=== PATIENT | male | born 1950 | race Caucasian/White ===

== ENCOUNTER 2020-03-12 07:58 | Outpatient (REF) | payer MEDICARE, SELFPAY ==
--- NOTE | 2020-03-12 08:38 | XR_ITS ---
EXAMINATION: XR CHEST CLINICAL INFORMATION: Pleurodynia COMPARISON: Chest radiographs on 12/16/2014 and 01/29/2018 TECHNIQUE: 2 views of the chest were obtained. FINDINGS: The cardiomediastinal and hilar contours are within normal limits. The lungs are clear without focal consolidation, pleural effusion or pneumothorax. XR/XR chest 2V IMPRESSION: No acute process identified.
== END 2020-03-12 07:59 | disposition home or self-care (01) ==
LOC: HO.HMGCX 07:58
PROVIDERS: PCP Nurse Practitioner Family; Visit Provider Nurse Practitioner Family
DX: R07.81 Pleurodynia (principal)
CPT/HCPCS: 71046

== ENCOUNTER 2020-05-11 14:34 | Outpatient (REF) | payer MEDICARE, SELFPAY | END 2020-05-11 14:35 | disposition home or self-care (01) | LOC: HO.HMGCLDS 14:34 | PROVIDERS: PCP Nurse Practitioner Family; Visit Provider Internal Medicine | DX: Z20.822 Contact with and (suspected) exposure to COVID-19 (principal) | CPT/HCPCS: 36415; C9803; U0003 ==

== ENCOUNTER 2023-08-08 15:00 | Outpatient (AMB) | payer MEDICARE, SELFPAY ==
--- NOTE | 2023-08-08 15:08 | MHC.PC.OV ---
Vital Signs 08/08/23 15:11 Height 5 ft 7 in Weight 178 lb BMI 27.9 BP 122/80 Blood Pressure Location Lt brachial Position Sitting Pulse 78 Pulse Source Pulse Oximeter Pulse Oximetry (%) 98 Oxygen Delivery Method Room Air Intake Visit Reasons: re-estblish care(not seen in 3 years) Intake Note: Patient here to re establish care. Allergies No Known Allergies Allergy (Verified 08/08/23 15:11) Medication List - Last Reconciled 08/08/23 by ESDRAS Damico atorvastatin 40 mg PO DAILY clonazepam 0 mg PO fluoxetine mg PO fluoxetine 20 mg PO QAM mirtazapine 45 mg PO BEDTIME pantoprazole 40 mg PO DAILY trazodone mg PO Tobacco use date assessed: 08/08/23 Fall risk assessment: No Falls in past year Last assessed Fall Risk: 08/08/23 Dental Screening Dental Screen Date: 08/08/23 Did you have a dental visit in the last 12 months?: Yes Did you have a dental problem in the last 6 months where you did not have access to dental care?: No Was dental information given to patient?: Patient has dentist HPI re-estblish care(not seen in 3 years) HPI Details Dyslipidemia: Pt is currently taking atorvastatin 40mg. Will order labs. Denies fever, chills, and dizziness. Pt is due for a colon screen, will refer to GI. Pt does have a psychiatrist. He does not have a therapist and would like one, will speak with our team, denies any SI ro HI. Pt reports skin lesions to his upper mid back/posterior neck. Will refer to derm. Due for PSA, will order. Denies dribbling with urination, weak stream, and frequent nocturia. Pt reports intermittent chest discomfort. He reports that this lasts only seconds and does not radiate. Will do an EKG in office. [facility] Medical History (Updated 08/08/23 @ 16:08 by ESDRAS Damico) Gastrointestinal discomfort Seborrheic keratoses Lumbago of lumbar region with sciatica Depression Mixed hyperlipidemia Surgical History History of inguinal hernia repair History of tonsillectomy Family History Mother Brain cancer Father No problems noted. Social History (Updated 08/08/23 @ 16:44 [facility] Alcohol intake: current Alcohol intake frequency: a few times a week Patient Tobacco Use Status: Former Tobacco user Current occupational status: employed and retired Cognitive needs: No Hearing needs: No Vision needs: Yes Questionnaire PHQ-9 Over the last 2 weeks, how often have you been bothered by any of the following problems? 35906 - PHQ-9 Billing: Patient declined-do not bill Source: Developed by Drs. Saúl Starr, Maddie Jackson, Patel Muniz and colleagues, with an educational silas from [employer]. AUDIT C Alcohol Use Questionnaire (AUDIT-C) Score Reviewed/Action Taken: No JANET-7 AMB Questionnaire JANET-7 Assessment Billing JANET-7 Assessment Tool: pt declined-do not bill Review of Systems Const Reports as per HPI Physical exam (Primary Care) Vital Signs: Last Vital Signs Pulse 78 08/08/23 15:11 BP 122/80 08/08/23 15:11 Pulse Ox 98 08/08/23 15:11 Oxygen Delivery Method Room Air 08/08/23 15:11 BMI result Body Mass Index 27.9 Tobacco/Smoking Status: Tobacco use Status Tobacco use date assessed 08/08/23 08/08/23 15:19 Patient Tobacco Use Status Former Tobacco user 08/08/23 15:19 Const General: cooperative Orientation/consciousness: patient oriented x3 Resp Effort & Inspection: normal respiratory effort Auscultation: clear to auscultation bilaterally Cardio Rate: regular rate Rhythm: regular rhythm Heart sounds: S1 normal heart sound present and S2 normal heart sound present Skin Other: upper mid back/posterior neck with slightly raised, slightly discolored lesions (SK?) Neuro General: patient oriented x3 Psych Appearance: grossly normal Mental Status: mental status grossly normal Speech and movement: Normal speech and movement present Affect: normal affect Attitude: cooperative Thought process: Normal thought process present Thought content: Normal thought content present Insight: Good insight present (Psych) Judgement: Good judgement present (Psych) Assessment and Plan Assessment & Plan (1) Screening for colon cancer: Code(s): Z12.11 - Encounter for screening for malignant neoplasm of colon Plan: Referred to GI (2) Mixed hyperlipidemia: Code(s): E78.2 - Mixed hyperlipidemia Plan: Labs ordered, restarting atorvastatin (3) Screening for prostate cancer: Code(s): Z12.5 - Encounter for screening for malignant neoplasm of prostate Plan: PSA ordered (4) Skin lesion: Code(s): L98.9 - Disorder of the skin and subcutaneous tissue, unspecified Plan: referring to derm (5) Chest discomfort: Code(s): R07.89 - Other chest pain Plan The patient agreed to the use of a medical records field technician for this encounter. Scribed for CORRY Scott-BC by Daysi Anderson medical records field technician, on 08/08/2023 at 15:45 EST. Orders: Orders Complete Blood Count Auto Diff Today E78.2 - Mixed hyperlipidemia TSH reflex Free T4 Today E78.2 - Mixed hyperlipidemia Prostate Specific Antigen Scr Today Z12.5 - Encounter for screening for malignant neoplasm of prostate AMB EKG-In Office Today R07.89 - Other chest pain Comprehensive [place]. Panel Fast Today E78.2 - Mixed hyperlipidemia UA CC w/rflx Micro + Cult Today E78.2 - Mixed hyperlipidemia Lipid Panel Today E78.2 - Mixed hyperlipidemia Referrals Gastroenterology Referral Z12.11 - Encounter for screening for malignant neoplasm of colon Dermatology Referral L98.9 - Disorder of the skin and subcutaneous tissue, unspecified Medications: Refilled atorvastatin 40 mg PO DAILY 90 tabs 0RF Coding Level of Care Code New Pt Level 3 (82719) Diagnoses Screening for colon cancer Z12.11 Mixed hyperlipidemia E78.2 Screening for prostate cancer Z12.5 Skin lesion L98.9 Chest discomfort R07.89
[2023-08-08 15:11] VITALS: BP 122/80; PULSE 78; O2SAT 98; BMI 27.9
== END 2023-08-08 16:41 | disposition home or self-care (01) ==
PROVIDERS: PCP Nurse Practitioner Family; Visit Provider Nurse Practitioner Family
DX: Z12.11 Encounter for screening for malignant neoplasm of colon (principal); E78.2 Mixed hyperlipidemia; Z12.5 Encounter for screening for malignant neoplasm of prostate; L98.9 Disorder of the skin and subcutaneous tissue, unspecified; R07.89 Other chest pain
CPT/HCPCS: 99203

== ENCOUNTER 2023-10-05 12:01 | Outpatient (REF) | payer MEDICARE, SELFPAY ==
[2023-10-05 13:04] LABS: MANUAL DIFF FLAG NO
[2023-10-05 13:21] LABS: Basophils Absolute Auto 0.1 X10*3/uL (0.0-0.2); Basophils Percent Auto 1.3 % (0-2); Eosinophils Absolute Auto 0.1 X10*3/uL (0.0-0.4); Eosinophils Percent Auto 1.3 % (0-4); Hematocrit 43.5 % (42.0-52.0); Imm Gran Abs Auto 0.02 X10*3/uL (0.00-0.03); Imm Gran Pct Auto 0.3 % (0.0-0.4); Lymphocytes Absolute Auto 2.4 X10*3/uL (1.2-4.9); Lymphocytes Percent Auto 35.7 % (20-40); Mean Corpuscular HGB Conc 32.2 g/dl (31.0-36.0); Mean Corpuscular Hemoglobin 29.5 pg (27.0-33.0); Mean Corpuscular Volume 91.6 fL (80.0-98.0); Mean Platelet Volume 11.2 fL (9.4-12.4); Monocytes Absolute Auto 0.4 X10*3/uL (0.1-1.2); Monocytes Percent Auto 6.3 % (2-11); Neutrophils Absolute Auto 3.7 x10*3/uL (2.0-8.3); Neutrophils Percent Auto 55.1 % (45-73); Platelet Count 213 X10*3/uL (160-400); Red Blood Count 4.75 X10*6/uL (4.60-5.80); Red Cell Distribution Width 13.4 % (11.0-16.0); White Blood Count 6.8 X10*3/uL (4.8-10.8)
[2023-10-05 13:44] LABS: Appearance Urine Clear; Color Urine Yellow; Glucose Urine UA Negative (Negative); Leukocyte Esterase Urine Negative (Negative); Nitrite Urine Negative (Negative); PH 6.5 (5.0-9.0); Specific Gravity - Urine 1.015 (1.005-1.025); Urine Blood Negative (Negative); Urine Ketones Negative (Negative); Urine Protein Negative (Neg-Trace)
[2023-10-05 13:47] LABS: Alanine Aminotransferase 40 U/L (0-40); Albumin Level 4.2 g/dL (3.5-5.0); Alkaline Phosphatase 53 U/L (39-117); Anion Gap 9 (12-20); Aspartate Amino Transferase 35 U/L (5-37); Bilirubin Total 0.6 mg/dL (0.0-1.0); Blood Urea Nitrogen 13 mg/dL (9-16); Carbon Dioxide 30 mmol/L (22-29); Chloride 106 mmol/L (96-108); Cholesterol 182 mg/dL (<200); Estimated Glomerular Filt Rate > 60; Glucose Fasting 102 mg/dL (60-99); HDL Cholesterol 49 mg/dL (>40); LDL Cholesterol Calculated 95 mg/dL (<100); Sodium 141 mmol/L (135-145); Total Protein 7.6 g/dL (6.5-8.0); Triglycerides 192 mg/dL (<150)
[2023-10-05 13:59] LABS: Prostate Specific Antigen Scr 8.67 ng/mL (<0.05-4.0)
[2023-10-05 14:05] LABS: TSH reflex Free T4 2.28 uIU/mL (0.32-4.0)
== END 2023-10-05 12:02 | disposition home or self-care (01) ==
LOC: HO.HMGCLDS 12:01
PROVIDERS: PCP Nurse Practitioner Family; Visit Provider Nurse Practitioner Family
DX: E78.2 Mixed hyperlipidemia (principal); R97.20 Elevated prostate specific antigen [PSA]; Z12.5 Encounter for screening for malignant neoplasm of prostate
CPT/HCPCS: 36415; 80053; 80061; 81003; 84153; 84443; 85025

== ENCOUNTER 2023-11-29 11:36 | Outpatient (AMB) | payer MEDICARE, SELFPAY ==
[2023-11-29 11:49] VITALS: BP 126/80; PULSE 61; O2SAT 96; BMI 27.3
--- NOTE | 2023-11-29 11:49 | MHC.PC.OV ---
Vital Signs 11/29/23 11:49 Height 5 ft 7 in Weight 174 lb 6 oz BMI 27.3 BP 126/80 Blood Pressure Location Rt brachial Position Sitting Pulse 61 Pulse Source Pulse Oximeter Pulse Oximetry (%) 96 Oxygen Delivery Method Room Air Intake Visit Reasons: 4M F/U Intake Note: pt is here for 4 month folllow up. positive PHQ9 and JANET 7, please review with patient Emergency Department Manager Required: No Accompanied by: Self / Same As Patient Allergies No Known Allergies Allergy (Verified 11/29/23 11:49) Tobacco use date assessed: 08/08/23 Fall risk assessment: No Falls in past year Last assessed Fall Risk: 11/29/23 Dental Screening Dental Screen Date: 08/08/23 HPI 4M F/U HPI Details Pt reports left upper chest discomfort with inhalation. He is a former cigarette smoker, quit several years ago. He does smoke marijuana on a daily basis. Pt does report intermittent cough. Will order chest XR. Will do an EKG and nebulizer in office. Denies fever, chills, and shortness of breath. [facility]END[facility] S[facility] TO [facility] Medical History Gastrointestinal discomfort Seborrheic keratoses Lumbago of lumbar region with sciatica Depression Mixed hyperlipidemia Surgical History History of inguinal hernia repair History of tonsillectomy Family History Mother Brain cancer Father No problems noted. Social History Alcohol intake: current Alcohol intake frequency: a few times a week Patient Tobacco Use Status: Former Tobacco user Current occupational status: employed and retired Cognitive needs: No Hearing needs: No Vision needs: Yes Questionnaire PHQ-9 Over the last 2 weeks, how often have you been bothered by any of the following problems? 1. Little interest or pleasure in doing things: nearly every day 2. Feeling down, depressed, or hopeless: nearly every day 3. Trouble falling or staying asleep, or sleeping too much: several days 4. Feeling tired or having little energy: several days 5. Poor appetite or overeating: several days 6. Feeling bad about yourself - or that you are a failure or have let yourself or your family down: more than half the days 7. Trouble concentrating on things, such as reading the newspaper or watching television: several days 8. Moving or speaking so slowly that other people could have noticed. Or the opposite - being so fidgety or restless that you have been moving around a lot more than usual: several days 9. Thoughts that you would be better off or of hurting yourself in some way: not at all Total score: 13 Depression Screening Interpretation: Positive Depression Screening Done: Yes 36336 - PHQ-9 Billing: Yes Source: Developed by Drs. Saúl Starr, Maddie Jackson, Patel Muniz and colleagues, with an educational silas from [employer]. Thrive Questionnaire Date Thrive assessed: 11/29/23 I am a: Patient What is your living situation today?: I have a steady place to live Within the past 12 months, did the food you bought not last and you didn't have the money to get more?: Sometimes True Within the past 12 months, did you worry whether your food would run out before you got money to buy more?: Never true Do you have trouble paying for medicines?: No Do you have trouble getting transportation to medical appointments?: No Do you have trouble paying your heating and electricity bill?: No Do you have trouble taking care of your child, family member or friend?: No Do you have trouble with day-to-day activities such as bathing, preparing meals, shopping, managing finances, etc.?: Yes Are you currently unemployed and looking for a job?: Yes Are you interested in more education?: No Please select the resources that you would like help with: Housing/[facility] Currently or been in a relationship where the following occur: No concerns reported and I choose not to answer THRIVE Score: 1 AUDIT C Alcohol Use Questionnaire (AUDIT-C) 1. How often do you have a drink containing alcohol?: 2-4 times a month 2. How many drinks containing alcohol do you have on a typical day when you are drinking?: 3 or 4 3. How often do you have six or more drinks on one occasion?: Never Total Score: 3 Score Reviewed/Action Taken: Yes JANET-7 AMB Questionnaire JANET-7 Date JANET - 7 assessed: 11/29/23 Feeling nervous, anxious, or on edge: 3 = Nearly every day Not being able to stop or control worryin = Nearly every day Worrying too much about different things: 3 = Nearly every day Trouble relaxin = Nearly every day Being so restless that it is hard to sit still: 0 = Not at all Becoming easily annoyed or irritable: 2 = More than half the days Feeling afraid as if something awful might happen: 3 = Nearly every day Total JANET-7 score (0-4 normal; 5-9 mild; 10-14 moderate; 15-21 severe): 17 Source: Developed by Drs. Saúl Starr, Maddie Jackson, Patel Muniz and colleagues, with an educational silas from [employer]. JANET-7 Assessment Billing JANET-7 Assessment Tool: JANET-7 Assessment 23793 (denies any si or HI, will have BH speak with pt) Review of Systems Const Reports as per HPI Physical exam (Primary Care) Vital Signs: Last Vital Signs Pulse 61 11/29/23 11:49 BP 126/80 11/29/23 11:49 Pulse Ox 96 11/29/23 11:49 Oxygen Delivery Method Room Air 11/29/23 11:49 BMI result Body Mass Index 27.3 Tobacco/Smoking Status: Tobacco use Status Tobacco use date assessed 08/08/23 11/29/23 11:51 Patient Tobacco Use Status Former Tobacco user 11/29/23 11:51 PHQ-9: PHQ-9 Score PHQ-9: Total score 13 11/29/23 12:29 Depression Screening Interpretation: Positive Thrive Assessment: Date of Thrive Assessment Date Thrive assessed 11/29/23 11/29/23 11:51 Currently or been in a relationship where the following occur: No concerns reported and I choose not to answer Const General: cooperative Orientation/consciousness: patient oriented x3 Resp Effort & Inspection: normal respiratory effort Auscultation: clear to auscultation bilaterally Cardio Rate: regular rate Rhythm: regular rhythm Heart sounds: S1 normal heart sound present and S2 normal heart sound present Neuro General: patient oriented x3 Psych Appearance: grossly normal Mental Status: mental status grossly normal Speech and movement: Normal speech and movement present Affect: normal affect Attitude: cooperative Thought process: Normal thought process present Thought content: Normal thought content present Insight: Good insight present (Psych) Judgement: Good judgement present (Psych) Office Procedures Nebulizer Treatment Nebulizer Treatment 36090-Tpfvussmn/MDI RX initial, or Nebulizer Subsequent Treatment Office Meds ipratropium 0.5 mg-albuterol 3 mg (2.5 mg base)/3 mL nebulization soln Performing Provider: ESDRAS Damico Performing Location: [facility] Administered by: Ro Coffey RN on 11/29/23 12:16 Dose Route Admin Location Dispensed Lot Number Expiration Date [employer] 3 mL inhalation 3 mL [id number] 02/21/25 39778-152-85 [employer] Assessment and Plan Assessment & Plan (1) Chest discomfort: Code(s): R07.89 - Other chest pain Plan: EKG without changes. educated on cutting back smoking marijuana. Plan The patient agreed to the use of a caregivers non medical for this encounter. Scribed for ESDRAS Scott by Daysi Anderson caregivers non medical, on 11/29/2023 at 11:55 EST. Orders: Orders XR chest 2V Today R07.89 - Other chest pain AMB Nebulizer Treatment Today R05.9 - Cough, unspecified Coding Level of Care Code Est Pt Level 3 (50498) Diagnoses Chest discomfort R07.89 CPT Codes Nebulizer Treatment - Nebulizer Treatment, initial or subsequent: 46194-Xozofdlcp/MDI RX initial, or Nebulizer Subsequent Treatment ([id number]) Additional Codes JANET-7 Assessment Billing - JANET-7 Assessment Tool: JANET-7 Assessment 90216 ([id number])
== END 2023-11-29 12:52 | disposition home or self-care (01) ==
PROVIDERS: PCP Nurse Practitioner Family; Visit Provider Nurse Practitioner Family
DX: R05.9 Cough, unspecified (principal); R07.89 Other chest pain
CPT/HCPCS: 93000; 94640; 99213; J7620

== ENCOUNTER 2023-12-26 14:20 | Outpatient (AMB) | payer MEDICARE, SELFPAY ==
--- NOTE | 2023-12-26 14:24 | MHC.OFFVIS ---
Intake Visit Reasons: Elevated PSA Intake Note: Patient is present for ELEVATED PSA Urology Medication:NONE Antibiotic Allergy:NONE Blood Thinner:NONE Poker Machine Attendant Required: No Allergies No Known Allergies Allergy (Verified 12/26/23 14:25) Medication List - Last Reconciled 12/26/23 by Kadeem Barber MD atorvastatin 40 mg PO DAILY clonazepam 0 mg PO fluoxetine mg PO fluoxetine 20 mg PO QAM mirtazapine 45 mg PO BEDTIME pantoprazole 40 mg PO DAILY trazodone mg PO HPI Comments Details: Luciano is a pleasant male. He is a patient of Dr. Larios. He is seen for the following urologic conditions - elevated PSA Elevated PSA He presents for - initial evaluation of elevated PSA, further evaluation of elevated PSA Lower Urinary Tract Symptoms include - stable. Effective voiding. Investigations include - PSA - 10/15 8.7 - SERGEY 2+ Individualized Prostate Cancer Risk Calculator - PCPT Calculator Associated conditions include - Therapeutic plan will be [- repeat PSA and if persistent elevation recommend prostate needle biopsy] [facility] Medical History Gastrointestinal discomfort Seborrheic keratoses Lumbago of lumbar region with sciatica Depression Mixed hyperlipidemia Surgical History History of inguinal hernia repair History of tonsillectomy Family History Mother Brain cancer Father No problems noted. Social History Alcohol intake: current Alcohol intake frequency: a few times a week Patient Tobacco Use Status: Former Tobacco user Current occupational status: employed and retired Cognitive needs: No Hearing needs: No Vision needs: Yes Review of Systems Const Denies chills and Denies fever(s) Card Reports no additional complaints and Denies syncope Resp Denies cough GI Denies abdominal pain and Denies heartburn Reports as per HPI and Denies change in libido Neuro Denies syncope Psych Denies change in libido Endo Denies change in libido Physical Exam Const General: cooperative, healthy appearing, comfortable and no acute distress Orientation/consciousness: patient oriented x3 HEENT Face and sinus: Yes normal facial exam Mouth: moist mucous membranes Neck Neck: Yes normal visual inspection, Yes full ROM and Yes trachea midline Chest Chest palpation & inspection: normal inspection of the chest Resp Effort & Inspection: normal respiratory effort, able to speak in complete sentences and no respiratory distress GI Inspection: Yes normal to inspection Rectal Exam - Male: Yes normal sphincter tone and Yes prostate normal Male General Exam: Yes normal external exam Penis: normal penis and circumcised Meatus: meatus normal Scrotum: scrotum normal Testes: Testes normal Back/Spine/Pelvis Cervical Spine: normal cervical lordosis Thoracic/Lumbar Spine: thoracic and lumbar spine normal to inspection Skin General skin exam: no rashes or lesions noted Neuro General: patient oriented x3, gait normal, tone normal and moves all extremities Extrem General: Yes normal to inspection and Yes capillary refill normal Assessment & Plan Assessment & Plan (1) Elevated prostate specific antigen (PSA): Code(s): R97.20 - Elevated prostate specific antigen [PSA] Category: Medical Plan Two month follow-up repeat PSA in bladder ultrasound Orders: Orders US bladder 2 Months R97.20 - Elevated prostate specific antigen [PSA] PSA,Total (Free>4and<10) 2 Months E11.69 - Type 2 diabetes mellitus with other specified complication, N52.1 - Erectile dysfunction due to diseases classified elsewhere, R97.20 - Elevated prostate specific antigen [PSA] Patient Instructions: Imaging studies, laboratory and physical exam results were discussed and reviewed in detail. No major barriers to patient understanding were identified. An opportunity to ask questions regarding the treatment plan was provided. All questions were answered. The patient expressed understanding and agreement with the above treatment plan. The patient is aware they should contact our office by phone for worsening of their current condition or the appearance of new urologic symptoms. Compliance is encouraged with any medications and followup testing that is ordered. It is a privilege to participate in the urologic care of your patient. If you have any questions or concerns regarding treatment for the above conditions, or other urologic issues, please do not hesitate to contact me. The office telephone contact is [phone]. This note is constructed using voice recognition software. While every effort has been made to ensure accuracy legal office administrator errors may have been included. Yours sincerely, Dr Kadeem Barber MD, [facility] - Urology Providers of Expert, Compassionate Care for the Genitourinary System Coding Level of Care Code New Pt Level 4 (43466) Diagnoses Elevated prostate specific antigen (PSA) R97.20
== END 2023-12-26 15:20 | disposition home or self-care (01) ==
PROVIDERS: PCP Nurse Practitioner Family; Visit Provider Urology
DX: R97.20 Elevated prostate specific antigen [PSA] (principal)
CPT/HCPCS: 99204

== ENCOUNTER → 2023-12-26 14:20 | Outpatient (BNVA) | payer MEDICARE, SELFPAY | PROVIDERS: PCP Nurse Practitioner Family; Visit Provider Urology | DX: R97.20 Elevated prostate specific antigen [PSA] (principal) | CPT/HCPCS: 99202 ==

== ENCOUNTER 2024-02-20 12:28 | Outpatient (REF) | payer MEDICARE, SELFPAY ==
[2024-02-20 14:32] LABS: PSA,Total (Free>4and<10) 14.72 ng/mL (0.00-4.00)
== END 2024-02-20 12:29 | disposition home or self-care (01) ==
LOC: HO.HMGCX 12:28
PROVIDERS: PCP Nurse Practitioner Family; Visit Provider Urology
DX: R97.20 Elevated prostate specific antigen [PSA] (principal); E11.69 Type 2 diabetes mellitus with other specified complication; N52.1 Erectile dysfunction due to diseases classified elsewhere; Z12.5 Encounter for screening for malignant neoplasm of prostate
CPT/HCPCS: 36415; 76857; 84153

== ENCOUNTER 2024-03-01 16:13 | Outpatient (AMB) | payer MEDICARE, SELFPAY ==
--- NOTE | 2024-03-01 16:14 | MHC.OFFVIS ---
Intake Visit Reasons: 2m/US/PSA(Elevated)set Intake Note: Patient is present for PSA/Ultrasound follow up Urology Med:nONE PSA- 02/20/2024 14.72 Bladder US- 02/20/24 Allergies No Known Allergies Allergy (Verified 03/18/24 10:38) HPI Comments Details: Luciano is a pleasant male. He is a patient of Dr. Larios. He is seen for the following urologic conditions - elevated PSA Telemedicine Evaluation 15 min Consultation D[employer] Sole Video PSA continues to rise 02/14 14.7 Start finasteride Schedule prostate biopsy Elevated PSA He presents for - initial evaluation of elevated PSA, further evaluation of elevated PSA Lower Urinary Tract Symptoms include - stable. Effective voiding. Investigations include - PSA - 10/15 8.7 - SERGEY 2+ Individualized Prostate Cancer Risk Calculator - PCPT Calculator Associated conditions include - Therapeutic plan will be [facility] Medical History Gastrointestinal discomfort Seborrheic keratoses Lumbago of lumbar region with sciatica Depression Mixed hyperlipidemia Surgical History History of inguinal hernia repair History of tonsillectomy Family History Mother Brain cancer Father No problems noted. Social History Are you a primary hourly caregiver to a significant other at home: No Do you presently have visiting nurse or other home services: No Alcohol intake: current Alcohol intake frequency: a few times a week Patient Tobacco Use Status: Former Tobacco user Substance Use Frequency: Daily Have you been hit, kicked, punched, or otherwise hurt by someone within the past year? If so, by whom?: No Are you DNR?: No Advance Directives: No Advance Directives Information Provided: Yes Recently lost weight without trying: No Nutrition Risks: No Nutritional Risk Current occupational status: employed and retired Cognitive needs: No Hearing needs: No Vision needs: Yes Review of Systems Const All systems reviewed & are unremarkable except as noted in HPI and below Reports no additional complaints Resp Reports no additional complaints GI Reports no additional complaints Reports as per HPI Musc Reports no additional complaints Physical Exam Telemedicine evaluation Appropriate responses Regular breathing rate and rhythm HEENT Head: Yes normal to inspection Ears: hearing grossly normal bilaterally Eyes General: appearance normal, both eyes and all related structures Neck Neck: Yes normal visual inspection Chest Chest palpation & inspection: normal inspection of the chest Resp Effort & Inspection: normal respiratory effort and able to speak in complete sentences Telehealth Telehealth Telehealth Platform: [employer] Location of provider rendering services: practice address Location of patient: address on file Patient Identification confirmed using: Name, : Yes Telehealth method: video Patient verbally consented to treatment: Yes Patient verbally consented to billing insurance company: Yes Patient informed of any privacy concerns related to visit: Yes Minutes spent on Phone/Video with Pt.: 15 Assessment & Plan Assessment & Plan (1) BPH loc w urin obs/LUTS: Code(s): N40.1 - Benign prostatic hyperplasia with lower urinary tract symptoms Category: Medical (2) Elevated prostate specific antigen (PSA): Code(s): R97.20 - Elevated prostate specific antigen [PSA] Category: Medical Plan Risks and benefits regarding trans rectal ultrasound with prostate biopsy were discussed. Options of continued surveillance, no treatment and biopsy were offered. The risks include but are not limited to, urinary tract infection, sepsis, difficulty urinating, bleeding into the rectum or bladder that requires intervention and transfusion,and failure to diagnose prostate cancer. The patient understands the options and the risks involved. They wish to proceed. Printed information was provided to ensure he remains off anticoagulation for the appropriate length of time. He may require cardiology or PCP clearance. An antibiotic will be administered prior to, and following the procedure Medications: New levofloxacin take 1 tablet day before procedure, 1 tablet day of procedure and 1 tablet day after procedure 500 mg PO DAILY 3 tabs 0RF 3 days R97.20 - Elevated prostate specific antigen [PSA] finasteride 5 mg PO DAILY 90 tabs 0RF 90 days R97.20 - Elevated prostate specific antigen [PSA], N32.0 - Bladder-neck obstruction Patient Instructions: Imaging studies, laboratory and physical exam results were discussed and reviewed in detail. No major barriers to patient understanding were identified. An opportunity to ask questions regarding the treatment plan was provided. All questions were answered. The patient expressed understanding and agreement with the above treatment plan. The patient is aware they should contact our office by phone for worsening of their current condition or the appearance of new urologic symptoms. Compliance is encouraged with any medications and followup testing that is ordered. It is a privilege to participate in the urologic care of your patient. If you have any questions or concerns regarding treatment for the above conditions, or other urologic issues, please do not hesitate to contact me. The office telephone contact is [phone]. This note is constructed using voice recognition software. While every effort has been made to ensure accuracy battery technician errors may have been included. Yours sincerely, Dr Kadeem Barber MD, [facility] - Urology Providers of Expert, Compassionate Care for the Genitourinary System Coding Level of Care Code Tele Est Pt Level 4 (27275) Diagnoses BPH loc w urin obs/LUTS N40.1 Elevated prostate specific antigen (PSA) R97.20
== END 2024-03-01 16:30 | disposition home or self-care (01) ==
LOC: HO.HUSH 16:13
PROVIDERS: PCP Nurse Practitioner Family; Visit Provider Urology
DX: N40.1 Benign prostatic hyperplasia with lower urinary tract symptoms (principal); R97.20 Elevated prostate specific antigen [PSA]
CPT/HCPCS: 99214

== ENCOUNTER → 2024-03-01 16:13 | Outpatient (BNVA) | payer MEDICARE, SELFPAY | PROVIDERS: PCP Nurse Practitioner Family; Visit Provider Urology ==

== ENCOUNTER 2024-03-18 10:10 | Day surgery (SDC) | payer MEDICARE, SELFPAY ==
--- NOTE | 2024-03-15 10:36 | HO.ANESPROP2 ---
Documented by User: Divya Pagan NP 03/15/24 10:37 HPI - Anesthesia Eval Consult details Narrative: 73yo M for Prostate Needle Biopsy PMFSH Active Problems Active Problems: All Active Problems BPH loc w urin obs/LUTS (Acute) Elevated prostate specific antigen (PSA) (Acute) Chest discomfort (Acute) Skin lesion (Acute) Screening for prostate cancer (Acute) Mixed hyperlipidemia (Acute) Screening for colon cancer (Acute) Rib pain (Acute) Past Medical History Medical History Gastrointestinal discomfort Seborrheic keratoses Lumbago of lumbar region with sciatica Depression Mixed hyperlipidemia Family History Family History Mother Brain cancer Father No problems noted. Surgical History Surgical History History of inguinal hernia repair History of tonsillectomy Social History Social History Are you a primary medical care manager to a significant other at home: No Do you presently have visiting nurse or other home services: No Alcohol intake: current Alcohol intake frequency: a few times a week Patient Tobacco Use Status: Former Tobacco user Substance Use Frequency: Daily Have you been hit, kicked, punched, or otherwise hurt by someone within the past year? If so, by whom?: No Are you DNR?: No Advance Directives: No Advance Directives Information Provided: Yes Recently lost weight without trying: No Nutrition Risks: No Nutritional Risk Current occupational status: employed and retired Cognitive needs: No Hearing needs: No Vision needs: Yes Meds Allergies Allergy/AdvReac Type Severity Reaction Status Date / Time No Known Allergies Allergy Verified 03/18/24 10:38 Home Medications ?Medication ?Instructions ?Recorded ?Confirmed ?Last Taken ?Type clonazepam 1 mg tablet 0 mg PO 03/12/20 12/26/23 Unknown History fluoxetine 20 mg capsule 20 mg PO QAM 03/12/20 03/18/24 Unknown History fluoxetine 40 mg capsule mg PO 03/12/20 12/26/23 Unknown History mirtazapine 45 mg tablet 45 mg PO BEDTIME depressive 03/12/20 03/18/24 Unknown History disorder trazodone 100 mg tablet mg PO 03/12/20 12/26/23 Unknown History Exam Pertinent Lab Results Pertinent Lab Results: Laboratory Tests 10/05/23 12:06 WBC 6.8 Hgb 14.0 Hct 43.5 Plt Count 213 Sodium 141 Potassium 4.0 Chloride 106 Carbon Dioxide 30 H BUN 13 Creatinine 1.01 Narrative Narrative: EKG 11/2023 SB @ 57 RBBB Assessment and Plan Assessment Anesthesia Assessment: Chart Reviewed Documented by User: Cris Parnell MD 03/18/24 11:45 PMFSH Past Medical History Medical History Gastrointestinal discomfort Seborrheic keratoses Lumbago of lumbar region with sciatica Depression Mixed hyperlipidemia Family History Family History Mother Brain cancer Father No problems noted. Family history of problems with anesthesia: No Surgical History Surgical History History of inguinal hernia repair History of tonsillectomy History of Problems with Anesthesia: No Social History Social History Are you a primary medical care manager to a significant other at home: No Do you presently have visiting nurse or other home services: No Alcohol intake: current Alcohol intake frequency: a few times a week Patient Tobacco Use Status: Former Tobacco user Substance Use Frequency: Daily Have you been hit, kicked, punched, or otherwise hurt by someone within the past year? If so, by whom?: No Are you DNR?: No Advance Directives: No Advance Directives Information Provided: Yes Recently lost weight without trying: No Nutrition Risks: No Nutritional Risk Current occupational status: employed and retired Cognitive needs: No Hearing needs: No Vision needs: Yes Meds Allergies Allergy/AdvReac Type Severity Reaction Status Date / Time No Known Allergies Allergy Verified 03/18/24 10:38 Home Medications ?Medication ?Instructions ?Recorded ?Confirmed ?Last Taken ?Type clonazepam 1 mg tablet 0 mg PO 03/12/20 12/26/23 Unknown History fluoxetine 20 mg capsule 20 mg PO QAM 03/12/20 03/18/24 Unknown History fluoxetine 40 mg capsule mg PO 03/12/20 12/26/23 Unknown History mirtazapine 45 mg tablet 45 mg PO BEDTIME depressive 03/12/20 03/18/24 Unknown History disorder trazodone 100 mg tablet mg PO 03/12/20 12/26/23 Unknown History Exam Airway Mallampati Class: III (limited mouth opening) TM Dist: >3cm Neck ROM: Full Heart: rrr Lungs: cta Assessment and Plan Assessment Anesthesia Assessment: Anesthesia Plan Discussed Final Anesthetic Review Family History of Problems with Anesthesia: No History of Problems with Anesthesia: No NPO: Yes ASA Class: II Final Preanesthetic Review: No Changes in Pt Med Stat, Meds/Allgs Chart Reviewed and Consent Obtained/Reviewed Patient Risk: Low Procedure Risk: Low Anesthetic Plan Anesthetic Plan: MAC: Disposition: Standard PACU
[2024-03-18] MEDS: Lactated Ringers 1,000 ML 100 ML IVCONT (10:36)
[2024-03-18 10:37] VITALS: BP 109/52; PULSE 68; RESP 18; TEMP 36.6; O2SAT 96
[2024-03-18 10:48] VITALS: BMI 27.4
--- NOTE | 2024-03-18 11:39 | MHC.SHP ---
Pre-Procedural Eval Section A - 24 Hr Update-Section A only Date of Service: 03/18/24 The patient is an INPATIENT: No Changes since office visit: No Cold of Flu in the past 2 weeks, No New Medical Problems, No Changes in Medication and No Patient answered all questions The patient has been examined within 24 hours of the surgical procedure. The History & Physical has been completed within 30 days and I have reviewed it.: Yes Section B - Complete if H&P > 30 days Chief Complaint: Elevated prostate specific antigen [PSA] Details of Present Illness: Prostate biopsy Allergies: Allergies Allergy/AdvReac Type Severity Reaction Status Date / Time No Known Allergies Allergy Verified 03/18/24 10:38 Plan I have reviewed the history and physical and performed a pertinent physical examination on my patient. No changes have occurred unless specified. Time Spent With Patient Time: Total time managing care of this patient today ____ minutes.
[2024-03-18 12:20] VITALS: BP 99/57; PULSE 62; RESP 14; TEMP 36.5; O2SAT 93
--- NOTE | 2024-03-18 12:22 | P.OP_ITS ---
Operative Note Operative Note Date of Service: 03/18/24 Narrative: Preoperative diagnosis: Elevated PSA Postoperative diagnosis: Elevated PSA Procedure: 1. transrectal ultrasound measurement of prostate 2. transrectal ultrasound-guided pudendal nerve block 3. transrectal ultrasound-guided prostate biopsy 12 core Surgeon: Dr. Kadeem Barber Anesthetic: 10cc 1% lidocaine Indications for procedure: Elevated PSA - PSA 8.7 up to 14.7 in 4 months Counselling: Technical aspects, risks and benefits of proposed procedure were discussed in full. All questions have been answered, written consent has been obtained and patient agrees to proceed. Procedure: The patient was brought into the procedure area and placed in a left lateral decubitus position. Patient identity confirmed. Perioperative antibiotics confirmed. Safety pause time out performed. SERGEY was performed to dilate rectal sphincter Iodine 10cc with 60 cc gel was placed per rectum to reduce infection risk using a catheter tip syringe. 8 Hz Tish rectal end-fire ultrasound probe was placed transrectally without difficulty. The prostate was visualized. Seminal vesicles were normal. Prostate margins were clearly demarcated. Bladder was seen superiorly. No cystic structures were noted No calcifications were noted at the surgical margin The prostate was otherwise homogeneous in nature The prostate was measured in 3 dimensions Prostatic Width: 4.9 cm Prostatic Height: 5.2 cm Urethral Length: 5.4 cm Total volume equals : 70 ml An ultrasound-guided pudendal nerve block was performed using a 22 gauge spinal needle in the sagittal plane. 4 cc of 1% lidocaine placed at the junction of each seminal vesicle and 2 cc placed at the apex of the prostate. A 12 core biopsy was performed with 6 cores each side using an 18 gauge prostate biopsy gun. Two cores each were taken at the prostate apex, mid and base on each side. Cores were spaced between lateral and medial aspects. Each core was examined as placed on specimen foam as part of director of quality control to ensure a minimum 1 cm of length and minimal discontinuity. He tolerated the procedure well with minimal rectal bleeding. Blood pressure remained stable following procedure. He was able to ambulate to bathroom after 5 minutes. Printed instructions regarding antibiotic use and common adverse events from the procedure such as low-grade temperature, potential infection and bleeding were given. He understands to call the office or go to an emergency room should any of these events arise. Pathology: 12 core prostate biopsy. CPT code 97330: Transrectal ultrasound; this is a diagnostic test for evaluation of the prostate and surrounding structures, looking for abnormalities or suspicious areas worrisome for cancer CPT code 41349: Biopsy, prostate; needle or punch, single or multiple, any approach CPT code 27318: Ultrasonic guidance for needle placement (eg, biopsy, aspiration, injection, localization device), imaging supervision and interpretation
[2024-03-18 12:35] VITALS: BP 122/73; PULSE 65; RESP 14; TEMP 36.5; O2SAT 97
== END 2024-03-18 13:47 | disposition home or self-care (01) ==
PROVIDERS: PCP Nurse Practitioner Family; Visit Provider Urology
PROC: (CPT 55700; principal; 2024-03-18 12:00)
DX: C61 Malignant neoplasm of prostate (principal); N40.1 Benign prostatic hyperplasia with lower urinary tract symptoms; R97.20 Elevated prostate specific antigen [PSA]; R10.9 Unspecified abdominal pain; M54.40 Lumbago with sciatica, unspecified side; E78.2 Mixed hyperlipidemia; L82.1 Other seborrheic keratosis; Z79.899 Other long term (current) drug therapy; Z98.890 Other specified postprocedural states; Z87.891 Personal history of nicotine dependence
CPT/HCPCS: 55700; 76942; 88305; 88344; J1956; J2003; J2250; J2704; J3010

== ENCOUNTER → 2024-03-18 10:10 | Outpatient (BNV) | payer MEDICARE, SELFPAY | PROVIDERS: PCP Nurse Practitioner Family; Visit Provider Urology | DX: R97.20 Elevated prostate specific antigen [PSA] (principal) | CPT/HCPCS: 55700; 76872; 76942 ==

== ENCOUNTER 2024-04-11 09:23 | Outpatient (AMB) | payer MEDICARE, SELFPAY ==
[2024-04-11 09:32] VITALS: BP 130/70; PULSE 66; O2SAT 97; BMI 26.0
--- NOTE | 2024-04-11 09:32 | MHC.PC.OV ---
Vital Signs 04/11/24 09:32 Height 5 ft 7 in Weight 166 lb BMI 26.0 BP 130/70 Blood Pressure Location Rt brachial Position Sitting Pulse 66 Pulse Source Pulse Oximeter Pulse Oximetry (%) 97 Intake Visit Reasons: 4 month follow up Allergies No Known Allergies Allergy (Verified 04/11/24 09:33) Medication List - Last Reconciled 04/11/24 by ESDRAS Damico atorvastatin 40 mg PO DAILY clonazepam 0 mg PO finasteride 5 mg PO DAILY 90 days fluoxetine mg PO fluoxetine 20 mg PO QAM mirtazapine 45 mg PO BEDTIME pantoprazole 40 mg PO DAILY trazodone mg PO Tobacco use date assessed: 08/08/23 Fall risk assessment: 2 + Falls in past year Last assessed Fall Risk: 04/11/24 Dental Screening Dental Screen Date: 08/08/23 HPI 4 month follow up HPI Details dyslipidemia: will recheck labs. on atorvastatin 40mg daily. Depression: Doing well, denies any SI or HI, sees a psychiatrist on a regular basis. [facility] Medical History (Updated 04/11/24 @ 09:56 by ESDRAS Damico) Gastrointestinal discomfort Seborrheic keratoses Lumbago of lumbar region with sciatica Depression Mixed hyperlipidemia Surgical History History of inguinal hernia repair History of tonsillectomy Family History Mother Brain cancer Father No problems noted. Social History Are you a primary home care administrator to a significant other at home: No Do you presently have visiting nurse or other home services: No Alcohol intake: current Alcohol intake frequency: a few times a week Patient Tobacco Use Status: Former Tobacco user Current occupational status: employed and retired Cognitive needs: No Hearing needs: No Vision needs: Yes Questionnaire Thrive Questionnaire Date Thrive assessed: 04/11/24 I am a: Patient What is your living situation today?: I have a steady place to live Within the past 12 months, did the food you bought not last and you didn't have the money to get more?: Sometimes True Within the past 12 months, did you worry whether your food would run out before you got money to buy more?: Never true Do you have trouble paying for medicines?: No Do you have trouble getting transportation to medical appointments?: No Do you have trouble paying your heating and electricity bill?: No Do you have trouble taking care of your child, family member or friend?: No Do you have trouble with day-to-day activities such as bathing, preparing meals, shopping, managing finances, etc.?: Yes Are you currently unemployed and looking for a job?: Yes Are you interested in more education?: No Please select the resources that you would like help with: None THRIVE Score: 1 JANET-7 AMB Questionnaire JANET-7 Date JANET - 7 assessed: 11/29/23 Source: Developed by Drs. Saúl Starr, Maddie Jackson, Patel Muniz and colleagues, with an educational silas from [employer]. Physical exam (Primary Care) Vital Signs: Last Vital Signs Pulse 66 04/11/24 09:32 BP 130/70 04/11/24 09:32 Pulse Ox 97 04/11/24 09:32 BMI result Body Mass Index 26.0 Tobacco/Smoking Status: Tobacco use Status Tobacco use date assessed 08/08/23 04/11/24 09:34 Patient Tobacco Use Status Former Tobacco user 04/11/24 09:34 Thrive Assessment: Date of Thrive Assessment Date Thrive assessed 04/11/24 04/11/24 09:34 Const General: cooperative, healthy appearing, comfortable, no acute distress and well developed Resp Effort & Inspection: normal respiratory effort Auscultation: clear to auscultation bilaterally Cardio Rate: regular rate Rhythm: regular rhythm Heart sounds: S1 normal heart sound present, S2 normal heart sound present and no murmurs Extrem Right lower extremity: no edema Left lower extremity: no edema Psych Appearance: grossly normal Mental Status: mental status grossly normal Speech and movement: Normal speech and movement present Affect: normal affect Attitude: cooperative Thought process: Normal thought process present Thought content: Normal thought content present Insight: Good insight present (Psych) Judgement: Good judgement present (Psych) Coding Level of Care Code Est Pt Level 3 (08060) Diagnoses Mixed hyperlipidemia E78.2 Depression F32.9 Assessment & Plan Assessment & Plan (1) Mixed hyperlipidemia: Code(s): E78.2 - Mixed hyperlipidemia Category: Medical Plan: recheck labs (2) Depression: Code(s): F32.9 - Major depressive disorder, single episode, unspecified Category: Medical Plan: doing well, in good spirits, denies any si or hi, follows up with psychiatry, on medication Plan . Orders: Orders Complete Blood Count Auto Diff Today E78.2 - Mixed hyperlipidemia Comprehensive [place]. Panel Fast Today E78.2 - Mixed hyperlipidemia UA CC w/rflx Micro + Cult Today E78.2 - Mixed hyperlipidemia Lipid Panel Today E78.2 - Mixed hyperlipidemia TSH reflex Free T4 Today E78.2 - Mixed hyperlipidemia
== END 2024-04-11 10:31 | disposition home or self-care (01) ==
PROVIDERS: PCP Nurse Practitioner Family; Visit Provider Nurse Practitioner Family
DX: E78.2 Mixed hyperlipidemia (principal); F32.9 Major depressive disorder, single episode, unspecified; Z23 Encounter for immunization

== ENCOUNTER → 2024-04-11 09:23 | Outpatient (BNVA) | payer MEDICARE, SELFPAY | PROVIDERS: PCP Nurse Practitioner Family; Visit Provider Nurse Practitioner Family | DX: E78.2 Mixed hyperlipidemia (principal); F32.9 Major depressive disorder, single episode, unspecified; Z23 Encounter for immunization; Z79.899 Other long term (current) drug therapy | CPT/HCPCS: 90471; 90677; 96127; 99212 ==

== ENCOUNTER 2024-04-12 15:25 | Outpatient (AMB) | payer MEDICARE, SELFPAY ==
--- NOTE | 2024-04-12 15:28 | MHC.OFFVIS ---
Intake Visit Reasons: Prostate biopsy results Intake Note: Patient is present for PROSTATE BIOPSY RESULTS Urology Medication:FINASTERIDE Antibiotic Allergy:NONE Blood Thinner:NONE Search Engine Optimization Specialist Required: No Allergies No Known Allergies Allergy (Verified 04/12/24 15:29) HPI Comments Details: Luciano is a pleasant male. He is a patient of Dr. Larios. He is seen for the following urologic conditions - prostate cancer Telemedicine Evaluation 15 min Consultation D[employer] Sole Video Discussion regarding diagnosis prostate cancer Plan imaging with MRI Complete genetics Prostate cancer - 03/17 - ultra low volume, intermediate risk (Grade 3) NCCN 4 PSA - 10/15 8.7, 02/14 14.7 TRUS volume 70 cc pT1c Histologic type: Adenocarcinoma, acinar type Histologic grade: Norcross score: 4+3=7 (left base lateral 30%), 3+4=7 (left mid medial 5%), 3+3=6 (left mid lateral 15%) % of pattern 4: 25% of the tumor % of pattern 5: 0% Grade group: 3, 2 and 1 Tumor quantitation: Number cores positive: 3 Total number of cores: 12 % of tissue involved: 5% of all tissue examined Periprostatic fat inv.: Not identified Seminal vesicle inv.: Not identified Perineural inv.: Not identified LVI: Not identified [facility] Medical History (Updated 04/12/24 @ 16:24 by Kadeem Barber MD) Gastrointestinal discomfort Seborrheic keratoses Lumbago of lumbar region with sciatica Depression Mixed hyperlipidemia Surgical History History of inguinal hernia repair History of tonsillectomy Family History Mother Brain cancer Father No problems noted. Social History Are you a primary manager critical care to a significant other at home: No Do you presently have visiting nurse or other home services: No Alcohol intake: current Alcohol intake frequency: a few times a week Patient Tobacco Use Status: Former Tobacco user Current occupational status: employed and retired Cognitive needs: No Hearing needs: No Vision needs: Yes Review of Systems Const All systems reviewed & are unremarkable except as noted in HPI and below Reports no additional complaints Resp Reports no additional complaints GI Reports no additional complaints Reports as per HPI Musc Reports no additional complaints Physical Exam Telemedicine evaluation Appropriate responses Regular breathing rate and rhythm HEENT Head: Yes normal to inspection Ears: hearing grossly normal bilaterally Eyes General: appearance normal, both eyes and all related structures Neck Neck: Yes normal visual inspection Chest Chest palpation & inspection: normal inspection of the chest Resp Effort & Inspection: normal respiratory effort and able to speak in complete sentences Telehealth Telehealth Location of provider rendering services: practice address Location of patient: address on file Patient Identification confirmed using: Name, : Yes Telehealth method: voice only Patient verbally consented to treatment: Yes Patient verbally consented to billing insurance company: Yes Patient informed of any privacy concerns related to visit: Yes Assessment & Plan Assessment & Plan (1) Hormone sensitive prostate cancer: Code(s): C61 - Malignant neoplasm of prostate; Z19.1 - Hormone sensitive malignancy status Category: Medical Plan Prostate 4 week follow-up office Orders: Orders Prostate wo/w con Today C61 - Malignant neoplasm of prostate, Z19.1 - Hormone sensitive malignancy status Patient Instructions: Imaging studies, laboratory and physical exam results were discussed and reviewed in detail. No major barriers to patient understanding were identified. An opportunity to ask questions regarding the treatment plan was provided. All questions were answered. The patient expressed understanding and agreement with the above treatment plan. The patient is aware they should contact our office by phone for worsening of their current condition or the appearance of new urologic symptoms. Compliance is encouraged with any medications and followup testing that is ordered. It is a privilege to participate in the urologic care of your patient. If you have any questions or concerns regarding treatment for the above conditions, or other urologic issues, please do not hesitate to contact me. The office telephone contact is [phone]. This note is constructed using voice recognition software. While every effort has been made to ensure accuracy heel brusher errors may have been included. Yours sincerely, Dr Kadeem Barber MD, [facility] - Urology Providers of Expert, Compassionate Care for the Genitourinary System Coding Level of Care Code Tele Est Pt Level 4 (21921) Diagnoses Hormone sensitive prostate cancer C61; Z19.1
== END 2024-04-12 16:30 | disposition home or self-care (01) ==
LOC: HO.HUSH 15:25
PROVIDERS: PCP Nurse Practitioner Family; Visit Provider Urology
DX: C61 Malignant neoplasm of prostate (principal); Z19.1 Hormone sensitive malignancy status
CPT/HCPCS: 99442

== ENCOUNTER → 2024-05-24 08:15 | Outpatient (BNV) | payer MEDICARE, SELFPAY | PROVIDERS: PCP Nurse Practitioner Family; Visit Provider Radiology Diagnostic Radiology | DX: Z19.1 Hormone sensitive malignancy status (principal) | CPT/HCPCS: 72197 ==

== ENCOUNTER 2024-05-24 08:38 | Outpatient (REF) | payer MEDICARE, SELFPAY ==
--- NOTE | ~2024-05-24 | MR_ITS ---
EXAMINATION: MR PROSTATE WITHOUT THEN WITH IV CONTRAST HISTORY: HORMONE SENSITIVE PROSTATE CA TECHNIQUE: 1.5T body coil survey of the pelvis was performed. Phase array coil imaging of the prostate was performed in multiplanar high resolution axial, coronal, sagittal fast spin echo T2 and axial T1 weighted imaging sequences. Axial diffusion imaging at intermediate and high field performed with ADC mapping. Next, 8 mL Gadavist was given by intravenous infusion, and dynamic axial imaging performed. COMPARISON: There are no prior studies for comparison. CLINICAL DATA: Most recent PSA: 14.72 ng/mL on 02/20/2024 PSA Density: 0.27 ng/mL squared Prostate Biopsy: Positive biopsy on 03/18/2024 with a Declan score 4+3 = 7 FINDINGS: Prostate size: 5.6 x 4.0 x 4.7 cm. Calculated prostate volume is 54.7 mL. Hemorrhage: None. Transitional Zone: There is moderate heterogeneous nodular hypertrophy of the transitional zone. Peripheral Zone: Evaluation is somewhat limited by motion on the axial T2-weighted images. This causes them to not completely correlate with the diffusion weighted images. There is a 9 mm area of interest in the posterolateral peripheral zone in the mid gland (series 7, images 21-23), with imaging characteristics as follows: Lesion #1: DWI PI-RADS v2.1 score: 4 T2 PI-RADS v2.1 score: 4 DCE PI-RADS v2.1 score: + Overall PI-RADS v2.1 score: 4 Capsular contact: yes Extracapsular extension: No definite Seminal vesicle invasion: None Neurovascular bundle involvement: No definite Seminal Vesicles/Ejaculatory Ducts: Symmetric and normal in signal and caliber. Pelvic Lymph Nodes: No obturator or internal iliac lymph nodes meeting size criteria for adenopathy. Marrow Signal: Normal marrow signal and enhancement without focal lesion identified. MR/MR Prostate wo/w con IMPRESSION: Area of interest in the left posterolateral peripheral zone mid gland as described, highly suspicious for clinically significant prostate carcinoma. PI-RADS 4: High (clinically significant cancer is likely to be present) PI-RADS Assessment Categories PI-RADS 1: Very low (clinically significant cancer is highly unlikely to be present) PI-RADS 2: Low (clinically significant cancer is unlikely to be present) PI-RADS 3: Intermediate (the presence of clinically significant cancer is equivocal) PI-RADS 4: High (clinically significant cancer is likely to be present) PI-RADS 5: Very high (clinically significant cancer is highly likely to be present) [employer]. MR Prostate Imaging Reporting and Data System version 2.1. [email or web address]/ Electronically signed by: Saúl Lemus MD 05/24/2024 10:15 AM [facility]
[2024-05-24] MEDS: gadobutroL 10 ML VIAL IVPUSH (09:56)
== END 2024-05-24 08:39 | disposition home or self-care (01) ==
LOC: HO.MRI 08:38
PROVIDERS: PCP Nurse Practitioner Family; Visit Provider Urology
DX: C61 Malignant neoplasm of prostate (principal); Z19.1 Hormone sensitive malignancy status
CPT/HCPCS: 72197; A9585

== ENCOUNTER 2024-06-12 14:13 | Outpatient (AMB) | payer MEDICARE, SELFPAY ==
--- NOTE | 2024-06-12 14:20 | A.OFFVIS_ITS ---
Intake Visit Reasons: follow up/prolaris(set) Intake Note: Patient is present for F/U PROLARIS Urology Medication:FINASTERIDE Antibiotic Allergy:NONE Blood Thinner:NONE Development Spec Required: No Allergies No Known Allergies Allergy (Verified 06/12/24 14:21) HPI Comments Details: Luciano is a pleasant male. He is a patient of Dr. Larios. He is seen for the following urologic conditions - prostate cancer Follow-up from diagnosis prostate cancer 3 out of 12 cores with no more than 30% each core Staging - Genetics - Prolaris 05/18 - right side of grade 3 curve - MRI 05/18 - 54 g prostate, 9 mm left posterolateral peripheral zone PI-RADS 4 lesion Based on consideration of genetics and MRI staging recommendation for external beam radiation with short-term hormones and space oar Referral to Radiation Oncology [facility] 2 weeks nursing Prostate cancer - 03/17 - ultra low volume, intermediate risk (Grade 3) NCCN 2023 PSA - 10/15 8.7, 02/14 14.7 TRUS volume 70 cc pT1c Histologic type: Adenocarcinoma, acinar type Histologic grade: Declan score: 4+3=7 (left base lateral 30%), 3+4=7 (left mid medial 5%), 3+3=6 (left mid lateral 15%) % of pattern 4: 25% of the tumor % of pattern 5: 0% Grade group: 3, 2 and 1 Tumor quantitation: Number cores positive: 3 Total number of cores: 12 % of tissue involved: 5% of all tissue examined Periprostatic fat inv.: Not identified Seminal vesicle inv.: Not identified Perineural inv.: Not identified LVI: Not identified Prostate Cancer Therapy Discussion today focused on treatment options for prostate cancer. The patient has already reviewed educational materials that had been provided to him in printed form. The NCCN criteria for imaging, molecular testing and germ line testing were discussed. Prognostic Model Information calculated using STAR-CAPS [email or web address] 5yr Specific Mortality 1.1 10yr Specfic Mortality 4.4 The discussion was then focused on therapeutic options which include 1) Deferred therapy/active surveillance. Recommended in the setting of low volume, very low risk and low risk disease. Criteria include 3 cores all less, same side, no core greater than 50% disease. Evaluation may be augmented with imaging such as pelvic MRI and genetic evaluation of biopsy material. Somatic tissue genetic testing such as Prolaris, which focuses on tumor-specific pathogenic variants that may identify an indication for further germline testing and can guide therapeutic decisions in the setting of low risk and low volume disease. - The patient is not a candidate for active surveillance. NCCN Prostate Cancer Guideline 4 PROS-F Page 2 PRINCIPLES OF ACTIVE SURVEILLANCE AND OBSERVATION Confirmatory Testing to Establish Appropriateness of Active Surveillance: - Goals of confirmatory testing are to help facilitate early identification of those patients who may be at a higher risk of future grade reclassification or cancer progression. - Since an initial prostate biopsy may underestimate tumor grade or volume, confirmatory testing is strongly recommended within the first 6 to 12 months of diagnosis for patients who are considering active surveillance. - Options for confirmatory testing include prostate biopsy, mpMRI with calculation of PSA density (and repeat biopsy as indicated), and/or molecular tumor analysis, see Principles of Risk Stratification (PROS-D). - Early confirmatory testing may not be necessary in patients who have had an mpMRI prior to diagnostic biopsy. ?All patients should undergo a confirmatory prostate biopsy within 1?2 years of their diagnostic biopsy 2) Targeted Cryotherapy Ablation. The technique of cryotherapy was described. PSA free progression rates were discussed. Suitable candidates in general have low volume grade group 1 or grade group 2 disease. Typically pelvic MRI with targeted mapping biopsies are required for treatment planning. - The patient is not a candidate for image guided targeted cryotherapy ablation. 3) Robotic Prostatectomy. Salient features of the patient's PSA, Declan score and disease stage were applied to the [facility] nomogram. Relevant rates of extracapsular extension, seminal vesicle involvement daniel involvement with discussed. Pathologic up staging and down staging on final specimen was discussed. Salient features of the procedure, hospitalization and recovery were discussed. - The patient is not a candidate for robotic prostatectomy. 4) Radiation therapy was described. IMRT, hyperfractionated therapy, permanent seed implant with all without concomitant androgen deprivation therapy and rectal protection were discussed. There is a small separation regarding cancer control between radiation and prostatectomy at approximately 15 years. There is an evolving preference for hyper fractionated therapy. This gives the same radiation total dose in a reduced number of individual treatment sessions. This approach is associated with higher risks of rectal bleeding. To ameliorate these risks injection of a spacer gel posterior to the prostate has been advocated. This is only indicated in patients without evidence of extracapsular extension posteriorly, and should be considered with caution where disease is primary grade 4. Brachytherapy was described in detail. Typically this is a same day procedure. Therapy is typically well tolerated and gives good control for low-risk prostate cancer and cancer that does not involve neurovascular invasion. - The patient is a candidate for SP RT with short-term hormones Different risks were described for each therapeutic option. Ranges from the published literature were discussed. Consequent morbidity and treatment to address complications were discussed. These include - robotic prostatectomy - Typically patients are in hospital for one day and miss 4 weeks of work. The importance of preoperative walking and Kegel exercises was stressed. Complications, including but not limited to; acute complications r egarding blood loss, transfusion, DVT, ileus, wound infection and potential mortality. Long-term complications such as impotence, UTI, urethral stricture, bladder neck contracture, incontinence. Penile shrinkage and chronic pain were discussed and reviewed. - radiation - IMRT typically this takes 25-40 daily treatments administered on a Monday through Monday sequence. Treatment is normally well tolerated. associated side effects include urge, frequency, dysuria, hematuria, loose bowels and fatigue, particularly toward the end of therapy. These can be ameliorated to s ome degree with medication. Long-term risks regarding impotence and a small risk of chronic urinary urge and incontinence were discussed - brachytherapy General anesthesia is used. Radioactive seeds are placed. There may be a required planning visit. Risks regarding anesthesia with DVT, PE, infection, urinary retention, urgency, and frequency were discussed. Long-term risks include bladder neck contraction, impotence, urge, potential for secondary cancer of the bladder base The patient has Grade Group 3 pT1 prostate cancer disease Based on the patient's age, comorbidities and personal preferences reasonable treatment options include SP RT with short-term hormones The patient is not a candidate for germline testing in accordance with the NCCN guideline Germline testing Germline testing is used to identify inherited pathogenic variants in DNA, which can guide screening, familial testing, and treatment decision-making. The National Comprehensive Cancer Network (NCCN) has recommended the use of germline genetic testing for patients with prostate cancer since 2018.?Germline testing should be considered for patients with clinically low-to intermediate- localized disease with a family history of prostate cancer; or high-to very high-risk localized disease. For regional or distant metastatic disease, germline testing is recommended regardless of initial risk. Please see the following excerpt. NCCN Version 4.3 PROS-C 2 of 3 Germline testing is recommended in patients with a personal history of prostate cancer in the following scenarios: ? By prostate cancer stage or risk group (diagnosed at any age) - Metastatic, regional (node positive), [id number] localized, or high- risk localized prostate cancer ? By family history and/or ancestry - >= 1 - first-, second-, or third-degree relative with: - breast cancer at age <50 - colorectal or endometrial cancer at age <50 - male (sex assigned at ) breast cancer at any age - ovarian cancer at any age - exocrine pancreatic cancer at any age - metastatic, regional, [id number], or high-risk prostate cancer at any age - >= 1- first-degree relative (parent or sibling) with: - prostate cancer at age <60 - >= 2- first-, second-, or third-degree relatives with: - breast cancer at any age - prostate cancer at any age - >= 3 - first- or second-degree relatives with: - Rapp syndrome-related cancers, especially if diagnosed <50 y: colorectal, endometrial, gastric, ovarian, exocrine pancreas, upper tract urothelial, glioblastoma, biliary tract, and small intestinal cancer - A known family history of familial cancer risk mutation (pathogenic/likely pathogenic variants), especially in: BRCA1, BRCA2, DANIELA, PALB2, CHEK2, MLH1, MSH2, MSH6, PMS2, and EPCAM - Ashkenazi Restorationist ancestry ? Personal history of breast cancer Germline testing may be considered in patients with a personal history of prostate cancer in the following scenarios: ? By prostate cancer tumor characteristics (diagnosed at any age) - intermediate-risk prostate cancer with intraductal/cribriform histologyc ? By prostate cancer AND a prior personal history of any of the following cancers: exocrine pancreatic, colorectal, gastric, melanoma, upper tract urothelial, glioblastoma, biliary tract, and small intestinal References: Shiloh RT, Lenny K, Jordan MJ, et al. Development and Validation of a Clinical Prognostic Stage Group System.?[facility]. doi: [email or web address] [facility] Medical History (Updated 04/12/24 @ 16:24 by Kadeem Barber MD) Gastrointestinal discomfort Seborrheic keratoses Lumbago of lumbar region with sciatica Depression Mixed hyperlipidemia Surgical History History of inguinal hernia repair History of tonsillectomy Family History Mother Brain cancer Father No problems noted. Social History Are you a primary floor care specialist to a significant other at home: No Do you presently have visiting nurse or other home services: No Alcohol intake: current Alcohol intake frequency: a few times a week Patient Tobacco Use Status: Former Tobacco user Current occupational status: employed and retired Cognitive needs: No Hearing needs: No Vision needs: Yes Review of Systems Const Denies chills and Denies fever(s) Card Reports no additional complaints and Denies syncope Resp Denies cough GI Denies abdominal pain and Denies heartburn Reports as per HPI and Denies change in libido Neuro Denies syncope Psych Denies change in libido Endo Denies change in libido Physical Exam Const General: cooperative, healthy appearing, comfortable and no acute distress Orientation/consciousness: patient oriented x3 HEENT Face and sinus: Yes normal facial exam Mouth: moist mucous membranes Neck Neck: Yes normal visual inspection, Yes full ROM and Yes trachea midline Chest Chest palpation & inspection: normal inspection of the chest Resp Effort & Inspection: normal respiratory effort, able to speak in complete sentences and no respiratory distress GI Inspection: Yes normal to inspection Back/Spine/Pelvis Cervical Spine: normal cervical lordosis Thoracic/Lumbar Spine: thoracic and lumbar spine normal to inspection Skin General skin exam: no rashes or lesions noted Neuro General: patient oriented x3, gait normal, tone normal and moves all extremities Extrem General: Yes normal to inspection and Yes capillary refill normal Assessment & Plan Assessment & Plan (1) Hormone sensitive prostate cancer: Code(s): C61 - Malignant neoplasm of prostate; Z19.1 - Hormone sensitive malignancy status Category: Medical Plan Refer radiation oncology [facility] 2 weeks nursing Would then plan implantation SpaceOAR Orders: Referrals Radiation Oncology Referral C61 - Malignant neoplasm of prostate, Z19.1 - Hormone sensitive malignancy status Patient Instructions: This note is constructed using voice recognition software. While every effort has been made to ensure accuracy computer systems software engineer errors may have been included. Imaging studies, laboratory and physical exam results were discussed and reviewed in detail. No major barriers to patient understanding were identified. An opportunity to ask questions regarding the treatment plan was provided. All questions were answered. The patient expressed understanding and agreement with the above treatment plan. The patient is aware they should contact our office by phone for worsening of their current condition or the appearance of new urologic symptoms. Compliance is encouraged with any medications and followup testing that is ordered. It is a privilege to participate in the urologic care of your patient. If you have any questions or concerns regarding treatment for the above conditions, or other urologic issues, please do not hesitate to contact me. The office telephone contact is [phone]. Sincerely, Dr Kadeem Barber MD, [facility] - Urology Compassionate Specialist Care for the Genitourinary System Coding Level of Care Code Est Pt Level 4 (74082) Complex EM visit Add On G2211 Diagnoses Hormone sensitive prostate cancer C61; Z19.1
== END 2024-06-12 15:02 | disposition home or self-care (01) ==
PROVIDERS: PCP Nurse Practitioner Family; Visit Provider Urology
DX: C61 Malignant neoplasm of prostate (principal); Z19.1 Hormone sensitive malignancy status
CPT/HCPCS: 99214; G2211

== ENCOUNTER → 2024-06-12 14:13 | Outpatient (BNVA) | payer MEDICARE, SELFPAY | PROVIDERS: PCP Nurse Practitioner Family; Visit Provider Urology | DX: C61 Malignant neoplasm of prostate (principal); Z19.1 Hormone sensitive malignancy status | CPT/HCPCS: 99212 ==

== ENCOUNTER 2024-06-27 14:02 | Outpatient (AMB) | payer MEDICARE, SELFPAY ==
--- NOTE | 2024-06-27 14:22 | AM.OFFVISNUR ---
Intake Visit Reasons: [facility] Allergies No Known Allergies Allergy (Verified 06/12/24 14:21) Office Meds Eligard (6 month) 45 mg (6 month) subcutaneous syringe Performing Provider: Kadeem Barber MD Performing [place] [facility] Administered by: Kristina Birch RN on 06/27/24 14:22 Dose Route Admin Location Dispensed Lot Number Expiration Date 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 Assessment & Plan Assessment & Plan Orders: Orders AMB Leuprolide Injection - Practice Supplied Today C61 - Malignant neoplasm of prostate, N40.1 - Benign prostatic hyperplasia with lower urinary tract symptoms, Z19.1 - Hormone sensitive malignancy status Medications: New Eligard (6 month) (leuprolide acetate (6 month)) 45 mg subcut ONCE 1 ea 0RF NS C61 - Malignant neoplasm of prostate, N40.1 - Benign prostatic hyperplasia with lower urinary tract symptoms, Z19.1 - Hormone sensitive malignancy status Coding
== END 2024-06-27 14:27 | disposition home or self-care (01) ==
PROVIDERS: PCP Nurse Practitioner Family; Visit Provider Urology
DX: C61 Malignant neoplasm of prostate (principal); Z19.1 Hormone sensitive malignancy status; N40.1 Benign prostatic hyperplasia with lower urinary tract symptoms

== ENCOUNTER → 2024-06-27 14:02 | Outpatient (BNVA) | payer MEDICARE, SELFPAY | PROVIDERS: PCP Nurse Practitioner Family; Visit Provider Urology | DX: C61 Malignant neoplasm of prostate (principal); N40.1 Benign prostatic hyperplasia with lower urinary tract symptoms; Z19.1 Hormone sensitive malignancy status | CPT/HCPCS: 96402; J9217 ==

== ENCOUNTER 2024-08-01 13:05 | Outpatient (AMB) | payer MEDICARE, SELFPAY ==
--- NOTE | 2024-08-01 13:05 | A.OFFVIS_ITS ---
Intake Visit Reasons: F/u discuss plan for space Oar Intake Note: Patient is present for f/u discuss plan for space oar Urology Medication:finasteride Antibiotic Allergy:none Blood Thinner:none Rn Mental Health Required: No Allergies No Known Allergies Allergy (Verified 08/01/24 13:06) HPI Comments Details: Luciano is a pleasant male. He is a patient of Dr. Larios. He is seen for the following urologic conditions - prostate cancer Telemedicine Evaluation 15 min Consultation DoxFishidy Sole Video Discussion with Radiation Oncology [facility] - leaning to surgery Discussed robotic prostatectomy Lanre is very interested in having his prostate removed following meeting with Radiation Oncology Referral to Dr. [facility] Discussion regarding pelvic floor exercises for 4-6 weeks prior to surgery Will put on daily Cialis to try to maximize nerve-sparing 4 month follow-up office PSA 07/16 [facility] Prostate cancer - 03/17 - ultra low volume, intermediate risk (Grade 3) NCCN 2024 PSA - 10/15 8.7, 02/14 14.7 TRUS volume 70 cc pT1c Histologic type: Adenocarcinoma, acinar type Histologic grade: Declan score: 4+3=7 (left base lateral 30%), 3+4=7 (left mid medial 5%), 3+3=6 (left mid lateral 15%) % of pattern 4: 25% of the tumor % of pattern 5: 0% Grade group: 3, 2 and 1 Tumor quantitation: Number cores positive: 3 Total number of cores: 12 % of tissue involved: 5% of all tissue examined Periprostatic fat inv.: Not identified Seminal vesicle inv.: Not identified Perineural inv.: Not identified LVI: Not identified Staging - Genetics - Prolaris 05/18 - right side of grade 3 curve - MRI 05/18 - 54 g prostate, 9 mm left posterolateral peripheral zone PI-RADS 4 lesion [facility] Medical History (Updated 04/12/24 @ 16:24 by Kadeem Barber MD) Gastrointestinal discomfort Seborrheic keratoses Lumbago of lumbar region with sciatica Depression Mixed hyperlipidemia Surgical History History of inguinal hernia repair History of tonsillectomy Family History Mother Brain cancer Father No problems noted. Social History Are you a primary director medicare sales to a significant other at home: No Do you presently have visiting nurse or other home services: No Alcohol intake: current Alcohol intake frequency: a few times a week Patient Tobacco Use Status: Former Tobacco user Current occupational status: employed and retired Cognitive needs: No Hearing needs: No Vision needs: Yes Review of Systems Const All systems reviewed & are unremarkable except as noted in HPI and below Reports no additional complaints Resp Reports no additional complaints GI Reports no additional complaints Reports as per HPI Musc Reports no additional complaints Physical Exam Telemedicine evaluation Appropriate responses Regular breathing rate and rhythm HEENT Head: Yes normal to inspection Ears: hearing grossly normal bilaterally Eyes General: appearance normal, both eyes and all related structures Neck Neck: Yes normal visual inspection Chest Chest palpation & inspection: normal inspection of the chest Resp Effort & Inspection: normal respiratory effort and able to speak in complete sentences Telehealth Telehealth Telehealth Platform: [employer] Location of provider rendering services: practice address Location of patient: address on file Patient Identification confirmed using: Name, : Yes Telehealth method: video Patient verbally consented to treatment: Yes Patient verbally consented to billing insurance company: Yes Patient informed of any privacy concerns related to visit: Yes Minutes spent on Phone/Video with Pt.: 15 Assessment & Plan Assessment & Plan (1) Hormone sensitive prostate cancer: Code(s): C61 - Malignant neoplasm of prostate; Z19.1 - Hormone sensitive malignancy status Category: Medical Plan Four month follow-up PSA Orders: Orders Prostate Specific Antigen 4 Months C61 - Malignant neoplasm of prostate, Z19.1 - Hormone sensitive malignancy status Referrals Urology Referral N40.1 - Benign prostatic hyperplasia with lower urinary tract symptoms Medications: New tadalafil [id number] [facility] [id number] Member [id number] 5 mg PO DAILY 90 days 90 tabs 1RF sexual activity N40.1 - Benign prostatic hyperplasia with lower urinary tract symptoms Patient Instructions: This note is constructed using voice recognition software. While every effort has been made to ensure accuracy bone glue maker errors may have been included. Imaging studies, laboratory and physical exam results were discussed and reviewed in detail. No major barriers to patient understanding were identified. An opportunity to ask questions regarding the treatment plan was provided. All questions were answered. The patient expressed understanding and agreement with the above treatment plan. The patient is aware they should contact our office by phone for worsening of their current condition or the appearance of new urologic symptoms. Compliance is encouraged with any medications and followup testing that is ordered. It is a privilege to participate in the urologic care of your patient. If you have any questions or concerns regarding treatment for the above conditions, or other urologic issues, please do not hesitate to contact me. The office telephone contact is [phone]. Sincerely, Dr Kadeem Barber MD, [facility] - Urology Compassionate Specialist Care for the Genitourinary System Coding Level of Care Code Tele Est Pt Level 4 (17150) Complex EM visit Add On G2211 Diagnoses Hormone sensitive prostate cancer C61; Z19.1
== END 2024-08-01 13:37 | disposition home or self-care (01) ==
LOC: HO.HUSH 13:05
PROVIDERS: PCP Nurse Practitioner Family; Visit Provider Urology
DX: C61 Malignant neoplasm of prostate (principal); Z19.1 Hormone sensitive malignancy status
CPT/HCPCS: 99214; G2211

== ENCOUNTER → 2024-08-01 13:05 | Outpatient (BNVA) | payer MEDICARE, SELFPAY | PROVIDERS: PCP Nurse Practitioner Family; Visit Provider Urology ==

== ENCOUNTER → 2024-09-17 07:17 | Outpatient (BNVA) | payer MEDICARE, SELFPAY | PROVIDERS: PCP Nurse Practitioner Family; Visit Provider Nurse Practitioner Family ==

== ENCOUNTER 2024-09-18 14:35 | Outpatient (AMB) | payer MEDICARE, SELFPAY ==
[2024-09-18 14:59] VITALS: BP 110/70; PULSE 68; RESP 14; TEMP 36.6; O2SAT 97; BMI 23.8
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
== END 2024-09-18 16:23 | disposition home or self-care (01) ==
LOC: HO.HMCC 14:36
PROVIDERS: PCP Nurse Practitioner Family; Visit Provider Nurse Practitioner Family
DX: Z12.11 Encounter for screening for malignant neoplasm of colon (principal); C61 Malignant neoplasm of prostate; F17.200 Nicotine dependence, unspecified, uncomplicated; K59.00 Constipation, unspecified

== ENCOUNTER → 2024-09-18 14:35 | Outpatient (BNVA) | payer MEDICARE, SELFPAY | PROVIDERS: PCP Nurse Practitioner Family; Visit Provider Nurse Practitioner Family | DX: C61 Malignant neoplasm of prostate (principal); K59.00 Constipation, unspecified; Z87.891 Personal history of nicotine dependence | CPT/HCPCS: 99212 ==

== ENCOUNTER 2025-01-05 18:35 | Emergency (ER) | payer MEDICARE, SELFPAY ==
--- OUTSIDE RECORDS SUMMARY | 2025-01-01 11:40 | XMS_ITS ---
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 Name Role Phone CONNIE BAILEY Primary Care Provider Saúl Martin [phone] REASON FOR VISIT Patient presents today for a COLON SCREENING Encounters Encounter Location Date Provider Diagnosis [facility] [address] [place] [address] 01/01/2025 Saúl Myrick Plan Of Treatment Next Appt Details Provider Name:Saúl Myrick , 05/07/2025 03:00:00 PM, [address], [address], [place], [address], Progress Notes * HARLEY STANLEYOB:1950 (74 yo M)Acc No.[id number]:01/01/2025 Progress Notes Patient: VIKKI PATIÑO Provider: Jose Cruz Myrick MD :1950 A ge:74 Y S ex:Male Date:01/01/2025 Address:[address] [place], [place] [id number] Pcp:CONNIE BAILEY Subjective: * Chief Complaints: * [...] 01/01/2025 Generated for Angely haas/Briana/Aramis on: 0 01/05/2025 07:33 PM EDT
--- OUTSIDE RECORDS SUMMARY | 2025-01-03 09:18 | XMS_ITS | Encounter Summary ---
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 Name Role Phone Jarad Joseph MD Primary Care Provider [phone] Reason for Visit * Auth/Cert Specialty Diagnoses / Procedures Referred By Contac t Referred To Contact Diagnoses Malignant neoplasm of prostate (HCC) Procedures MD LAPS SURG [id number] RPBIC RAD W/NRV SPARING ROBOT ROBOTIC RADICAL PROSTATECTOMY AND PELVIC LYMPH NODE DISSECTION Referral ID Status Reason Start Date Expiration Date Visits Re quested Visits Authorized [id number] 1 1 Encounter Details Date Type Department Care Team (Latest Contact Info) Description 01/03/2025 9:18 AM EDT - 01/05/2025 11:47 AM EDT Hospital Encounter [facility] [address] [place] [address] [phone] Juwan Tyson MD [address] [place] [address] [phone] Prostate cancer (HCC) (Primary Dx) Discharge Disposition: Home or Self Care Social History Tobacco Use Types Packs/Day Years Used Date Smoking Tobacco: Former Cigarettes Smokeless Tobacco: Never Alcohol Use Standard Drinks/Week Comments Yes 3 (1 standard drink = 0.6 oz pur e alcohol) 3 drinks a week [facility] Utilities Answer Date Recorded In the past 12 months has [employer] electric, gas, oil, or water company threatened to shut off services in your home? No 01/04/2025 AUDIT-C Answer Date Recorded Q1: How often do you have a drink containing alc ohol? 2-3 times a week 12/10/2024 Q2: How many drinks containi ng alcohol do you have on a typical day when you are drinking? 1 or 2 12/10/2024 Q3: How often do you have si x or more drinks on one occasion? Never 12/10/2024 Hunger Vital Sign Answer Date Recorded Within the past 12 months, y ou worried that your food would run out before you got the money to buy more. Never true 01/05/20 25 Within the past 12 months, t he food you bought just didn't last and you didn't have money to get more. Never true 01/04/2025 PRAPARE - Transportation Answer Date Re corded In the past 12 months, has l ack of transportation kept you from medical appointments or from getting medications? No 12/23 In the past 12 months, has l ack of transportation kept you from meetings, work, or from getting things needed for daily living? No 01/04/2025 Housing Stability Vital Sign Answer Soren e Recorded In the last 12 months, was t here a time when you were not able to pay the mortgage or rent on time? No 01/04/2025 In the past 12 months, how m any times have you moved where you were living? 0 01/04/2025 At any time in the past 12 m [facility], were you homeless or living in a mcc (including now)? No 01/04/2025 Sex and Gender Information Value Date Recorded Sex Assigned at Male 10/14/2024 10:25 AM EDT Legal Sex Male 6:34 PM EST Gender Identity Agender 10/14/2024 10:25 AM EDT Sexual Orientation Heterosexual (straight) 10/14 10:25 AM EDT documented as of this encounter Last Filed Vital Signs Vital Sign Reading Time Taken Comments Blood Pressure 120/72 01/05/2025 7:31 AM EDT Pulse 70 01/05/2025 7:31 AM EDT Temperature 36.5 C (97.7 F) 01/05/2025 7:31 AM EDT Respiratory Rate 18 01/05/2025 7:31 AM EDT Oxygen Saturation 98% 01/05/2025 7:31 AM EDT Inhaled Oxygen Concentration - - Weight 72 kg (158 lb 11.7 oz) 01/03/2025 9:35 AM EDT Height 170.2 cm (5' 7 ) 01/03/2025 9:35 AM EDT Body Mass Index 24.86 01/03/2025 9:35 AM EDT documented in this encounter Functional Status * Audit-C Score Answer Date of Assessment Author 3 12/10/2024 4:11 PM EDT Sabrina Hilton RN * Question Answer Date of Assessment Author Q1: How often do you have a drink containing alcohol? 2-3 times a week 12/10/2024 4:11 PM EDT Sabrina Hilton RN Q2: How many drinks containing alcohol do you have on a typical day when you are drinking? 1 or 2 12/10/2024 4:11 PM EDT Abdiaziz Hilton RN Q3: How often do you have six or more drinks on one occasion? Never 12/10/2024 4:11 PM EDT Sabrina Hilton RN documented as of this encounter Discharge Instructions * Discharge Instr - Other Orders* Ramses Seay MD - 01/03/2025 5:22 PM EDT Robotic-Assisted Prostatectomy Discharge Instructions: You should contact your urologist if you have: - high fevers >101.4 - heavy bleeding --> mild blood in the urine is expected and generally clears with drinking additional fluids - persistent pain, nausea, or vomiting not relieved with your medications DIET You are being discharged on a clear liquid diet. You may advance yourself to regular food once you begin passing gas from below at home. Try something light at first, and resume regular food if you tolerate that well. Absence of gas is normal for two to four days postoperatively. CATHETER Your naranjo catheter will remain in place for 7-10 days after your surgery and will be removed by your surgeon in the office. Please keep the catheter attached to a leg bag during the day and the larger overnight bag at night. Ensure that there is no tension on your catheter. If the catheter is not draining, try repositioning it. If unsuccessful, please call the office. It is normal to have some drainage and sometimes mucus or a small amount of blood around the catheter. If the catheter is uncomfortable at the tip of the penis, a small amount of bacitracin applied to the catheter will help with lubrication. The day before coming to the office for catheter removal you will start taking a 3 day course of antibiotics, these have been provided to you at discharge, do not start taking them until the day before catheter removal. ACTIVITY You may resume a regular level of light activity. Please walk regularly. Please refrain from heavy lifting or strenuous exercise until cleared by your surgeon. Do not drive while taking narcotic painmedications. You may shower 48 hours after surgery. No tub baths or swimming until three weeks after surgery and your catheter has been removed. INCISION CARE Your incisions have suture under the skin which will dissolve. The skin is covered with glue that will fall off with time. You may shower 48 hours after surgery. Allow water to run over your incisions. Do not scrub to remove the glue. You do not need to apply lotions, creams, or gels to your incisions. You may see some bruising around the incision sites. This is normal. Call if you have spreadingredness, pus-like drainage, or other concerns. MEDICATIONS You will be discharged with prescriptions for pain medications, a stool softener, and antibiotics. Please take as prescribed. Do not drive while taking narcotics. Begin taking your antibiotics one day before catheter removal and continue for a total of three days. Please hold your aspirin for 3 days after surgery, may restart on 01/06/25 FOLLOW-UP You will be seen in the office 7-10 days after surgery. Your catheter will most likely be removed at this appointment. Your surgeon will also discuss your pathology results at that time. Please call the office if you have difficulties with your catheter, nausea/vomiting, fevers, or other questions or concerns * Attachments The following attachments cannot be sent through Care Everywhere. * Indwelling Urinary Catheter Bag Care Adult (Cook Islander) documented in this encounter Medications at Time of Discharge aspirin (Aspirin 81) 81 MG chewable tablet Chew 1 tablet (81 mg total) every morning. atorvastatin (LIPITOR) 40 MG tablet Take 1 tablet (40 mg total) by mouth every evening. 10/20/2024 buPROPion (Wellbutrin SR) 100 MG 12 hr tablet Take 1 tablet (100 mg total) by mouth 2 times a day. clonazePAM (KlonoPIN) 1 MG tablet TAKE 1/2 TABLET BY MOUTH TWICE A DAY AND WHOLE TAB AT NIGHT [facility] Magnesium Citrate 1.745 GM/30ML Solution solution every morning. 09/11/2024 finasteride (PROSCAR) 5 MG tabletIndications :Benign prostatic hyperplasia with lower urinary tract symptoms, symptom details unspecified Take 1 tablet (5 mg total) by mouth daily. 30 tablet 11 11/21/2024 FLUoxetine (PROzac) 20 MG capsule 1 capsule (20 mg total) every morning. 60 mg total dose 09/16/2024 FLUoxetine (PROzac) 40 MG capsule 1 capsule (40 mg total) every morning. 60 mg total dose mirtazapine (REMERON) 45 MG tablet 11/12/2024 Multiple Vitamins-Minerals (MULTI VITAMIN/MINERALS PO) 1 Dose daily. naloxone (NARCAN) 4 mg/0.1 mL Liquid nasal spray deviceIndications :Prostate cancer (HCC) As needed for opioid overdose. [place] contents (4mg) into one nostril once. May repeat every 2 to 3 minutes in alternating nostrils. Call 911 immediately after use. 1 each 01/05/2025 oxyCODONE (ROXICODONE) 5 MG immediate release tabletIndications :Prostate cancer (HCC) Take 1 tablet (5 mg total) by mouth every 4 (four) hours as needed for severe pain. Max Daily Amount: 30 mg 8 tablet 01/04/2025 PANTOprazole (PROTONIX) 40 MG EC tablet Take 1 tablet (40 mg total) by mouth every morning. polyethylene glycol (miraLAx) 17 g packetIndications :Prostate cancer (HCC) Take 1 packet (17 g total) by mouth daily. 30 packet 01/04/2025 5 sulfamethoxazole- trimethoprim (BACTRIM DS,SEPTRA DS) 800-160 MG per tabletIndications :Prostate cancer (HCC) Take 1 tablet by mouth 2 (two) times a day. Begin taking these starting the day before catheter removal. Take the day before, day of, and day after your catheter is removed. 6 tablet 01/04/2025 5 traZODone (DESYREL) 100 MG tablet 1 tablet (100 mg total) nightly. 10/15/2024 finasteride (PROSCAR) 5 MG tablet Take 1 tablet (5 mg total) by mouth. 08/19/2024 mirtazapine (REMERON) 30 MG tablet 1 tablet before bedtime in the evening Orally Once a day 5 documented as of this encounter Progress Notes * Yulisa Jackson RN - 01/05/2025 11:45 AM EDT Pt and made aware of discharge. IV access discontinued. Urethral catheter care and medication teaching provided. Both pt and verbalized understanding. Pt transferred to [facility] via wheelchair. * Douglas Kraus RN - 01/05/2025 11:14 AM EDT 01/05/25 1114 Initial Information Source of Information patient;family;health record Plan Patient/Family in Agreement with Plan yes Final Discharge Disposition Code 01 - home or self-care Final Case Management Care Plan Note Summary: Per provider, patient is medically ready to transition home. Confirmed that patient is able to obtain medications/food/necessities post discharge. Final Destination: Home routine Plan for home support/Caregiver/responsible person:self, spouse Follow-up provider appointment: Per AVS/W-10 Equipment Ordered and Given at Discharge:na Final Discharge Transportation:spouse * Katey Arita MD - 01/05/2025 9:08 AM EDT Daily Urology Progress Note Principal Problem: Prostate cancer (HCC) (POA: Yes) Resolved Problems: Assessment & Plan Lanre Whitt is a 74 y.o. adult 2 Days Post-Op s/p Procedure(s) (LRB): ROBOTIC RADICAL PROSTATECTOMY AND PELVIC LYMPH NODE DISSECTION (N/A). Progressing well postoperatively. Plan CLD Pain control PRN Continue naranjo Anticipate discharge later today Please page pager with any questions or concerns Subjective NAEO. Reports feeling better. Denies N/V. Objective Last Vitals Pulse:70,Resp:18,BP:120/72,SpO2:98 %,Weight:72 kg (158 lb 11.7 oz) Temp Last 24 hrs: Temp Min: 96.4 ??F (35.8 ??C) Max: 99.5 ??F (37.5 ??C) Last temp: 97.7 ??F (36.5 ??C) (Tympanic) Diet Clear Liquid Date 01/04/25 07 - 01/05/25 0601/05/25 07 - 01/06/25 0659 Shift 1619-6962 7736-9173 4119-0162 24 Hour Total 2508-6396 8405-5577 8219-9527 24 Hour Total INTAKE P.O. 180 180 I.V.(mL/kg) 3(0) 3(0) 10(0.1) 10(0.1) Shift Total(mL/kg) 180(2.5) 3(0) 183(2.5) 10(0.1) 10(0.1) OUTPUT Urine(mL/kg/hr) 500(0.9) 1550(2.7) 900(1.6) 2950(1.7) Shift Total(mL/kg) 500(6.9) 1550(21.5) 900(12.5) 2950(41) Weight (kg) 72 72 72 72 72 72 72 72 Physical Exam Gen: Resting comfortably, NAD, AAO x3 HEENT: normocephalic CVS: Regular heart rate Pulm: Normal respiratory effort on RA Abd: Soft, non tender, nondistended. : Naranjo in place, draining clear yellow urine Skin: Warm and well perfused. Labs: White Blood Cell Count Date Value Ref Range Status 12/18/2024 8.2 4.0 - 11.0 Thou/uL Final Hemoglobin Date Value Ref Range Status 12/18/2024 13.3 13.0 - 17.7 g/dL Final Hematocrit Date Value Ref Range Status 12/18/2024 42.7 39.0 - 54.0 % Final Platelet Count Date Value Ref Range Status 12/18/2024 241 150 - 450 Thou/uL Final Lab Results Component Value Date NA 138 01/04/2025 K 4.0 01/04/2025 CL 103 01/04/2025 CO2 26 01/04/2025 BUN 11 01/04/2025 CREAT 0.8 01/04/2025 GLUC 101 (H) 01/04/2025 Lab Results Component Value Date CALCIUM 8.5 (L) 01/04/2025 No results found for: AST , ALT , ALKPHOS , BILITOT , BILIDIR , ALBUMIN , PROT No results found for: AMYLASE , LIPASE No results found for: PTT , LABPROT , INR Imaging Studies No results found. Other testing: n/a Electronically Signed Katey Arita MD Urology, PGY2 01/05/25 9:08 AM Please contact the Pager with any questions or concerns * Ed Covarrubias MD - 01/04/2025 10:31 AM EDTSummary: Plan of Care Update Urology Note ESTRELLITA drain bulb was taken off suction. Stitch was cut. ESTRELLITA drain was removed in entirety without resistance. There was no bleeding noted at the site. A gauze and Tegaderm was placed over the drain site. Patient tolerated the procedure well. ~75cc of serosanguinous fluid was within the bulb at time of removal. Ed Covarrubias MD Urology, Pager * Ramses Seay MD - 01/04/2025 9:33 AM EDT Urology Progress Note Assessment & Plan Assessment/Plan: Lanre Whitt is a 74 y.o. adult POD #1 s/p ROBOTIC RADICAL PROSTATECTOMY AND PELVIC LYMPH NODE DISSECTION Recovering well post-operatively. Drain outputs and drain creatinine reasonable Diet: Clear liquids IVF: Drop rate to 75 Pain and nausea control as needed Continue Naranjo catheter to gravity ESTRELLITA removal prior to discharge Encourage IS, ambulation DVT prophylaxis: SQH, SCDs Discharge home later today Subjective No acute events overnight. Patient reports feeling okay, pain is well controlled. Patient tolerating clears without nausea or vomiting. Has not ambulated. Tolerating naranjo catheter. No other acute complaints at this time. Objective Vitals Temp (24hrs), Av.5 ??F (36.4 ??C), Min:96.8 ??F (36 ??C), Max:98.4 ??F (36.9 ??C) Vitals: 01/03/25 2242 01/04/25 0217 01/04/25 0319 01/04/25 0812 BP: 120/68 118/64 128/68 BP Location: Right arm Right arm Right arm Patient Position: Lying Lying Lying Pulse: 79 84 69 Resp: 18 18 18 Temp: 97.7 ??F (36.5 ??C) 98 ??F (36.7 ??C) 96.8 ??F (36 ??C) TempSrc: Tympanic Tympanic Tympanic SpO2: 98% 96% 97% 98% Weight: Height: Weight:72 kg (158 lb 11.7 oz) I/O last 3 completed shifts: In: 2109.3 [P.O.:360; I.V.:1249.3; IV Piggyback:500] Out: 1325 [Urine:925; Other:250; Blood:150] Physical Exam Gen: NAD, resting in bed Card: normal rate Resp: Good respiratory effort Abd: soft nontender nondistended, incisions CDI. Drain with ss output : naranjo draining clear yellow Relevant data reviewed Lab Results Component Value Date WBC 8.2 12/18/2024 HGB 13.3 12/18/2024 HCT 42.7 12/18/2024 MCV 94 12/18/2024 PLT 241 12/18/2024 Lab Results Component Value Date CREAT 0.8 01/04/2025 BUN 11 01/04/2025 NA 138 01/04/2025 K 4.0 01/04/2025 CL 103 01/04/2025 CO2 26 01/04/2025 Ramses Seay MD 01/04/2025 9:33 AM * Madelin Marquez CM - 01/04/2025 8:34 AM EDT 01/04/25 0830 General Information Arrived From Non-Healthcr Initial Information How to be Addressed Lanre Source of Information patient;health record Designated Caregiver for Discharge Coordination Do You Have a Designated Caregiver for Discharge? 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 Disability/Function Hearing Difficulty or Deaf no Difficulty Concentrating, Remembering or Making Decisions no Communication Difficulty no Walking or Climbing Stairs Difficulty no Dressing/Bathing Difficulty no Equipment Currently Used at Home none Functional Status Usual Activity Tolerance good Functional Status, IADL Medications independent Meal Preparation independent Housekeeping independent Laundry independent Shopping independent Housing Stability In the last 12 months, was there a time when you were not able to pay the mortgage or rent on time?N In the past 12 months, how many times have you moved where you were living? 0 At any time in the past 12 months, were you homeless or living in a mcc (including now)? N Food Insecurity Within the past 12 months, you worried that your food would run out before you got the money to buymore. Never true Within the past 12 months, the food you bought just didn't last and you didn't have money to get more. Never true Transportation Needs In the past 12 months, has lack of transportation kept you from medical appointments or from getting medications? no In the past 12 months, has lack of transportation kept you from meetings, work, or from getting things needed for daily living? No Utilities In the past 12 months has the [employer], [employer], or water [employer] threatened to shut off services in your home? No Interpersonal Safety Within the last year, have you been humiliated or emotionally abused in other ways by anyone? No Within the last year, have you been kicked, hit, slapped, or otherwise physically hurt by anyone? No Discharge Needs Assessment Readmission Within the Last 30 Days no previous admission in last 30 days Concerns to be Addressed no discharge needs identified Patient/Family Anticipates Transition to home with family Patient/Family Anticipated Services at Transition none Transportation Anticipated family or friend will provide Discharge Coordination/Tasks Status Insurance Benfits/Coverage Discussed with Patient PASRR Completed No Plan Plan Home w/family Patient/Family in Agreement with Plan yes documented in this encounter H&P Notes * Juwan Tyson MD - 01/03/2025 1:06 PM EDT INTERVAL NOTE - DAY OF SURGERY/PROCEDURE This note validates the H&P. The patient has been examined and there are no changes to the H&P. MD Signature: Juwan Tyson MD Date: 01/03/2025 Time: 1:06 PM Source Note - Natalia Swanson APRN - 12/18/2024 2:30 PM EDT Images from the original note were not included. PREOPERATIVE - HISTORY AND PHYSICAL Primary Care Provider: Jarad Joseph MD Procedure Date Procedure Laterality Surgeon(s) 01/03/2025 ROBOTIC ASSISTED PROSTATECTOMY /C DISSECTION LYMPH NODES (XI) N/A Juwan Tyson MD Anesthesia Preoperative Diagnosis for Planned Procedure general Malignant neoplasm of prostate (HCC) [C61] ASSESSMENT & PLAN Preop Outcome - No further preoperative testing or consultations needed Specific Perioperative Concerns include marijuana use Gastroesophageal reflux disease without esophagitis Well-controlled and managed with medication. Continue current medication regimen as prescribed. Follow up with provider as directed Insomnia; Anxiety and depression Maintained on fluoxetine, mirtazapine, trazodone, bupropion, and clonazepam. Patient denies suicidal or homicidal ideation. Continue current medication regimen as prescribed. Patient to follow up with provider as previously directed. Constipation Managed with magnesium citrate daily. Continue with medication as prescribed. Follow up with provider as directed Other hyperlipidemia Compliant with statin therapy. Continue current medication regimen as prescribed. Follow up with provider as directed Benign prostatic hyperplasia with lower urinary tract symptoms Managed with finasteride. Continue with medication as prescribed. Follow up with provider as directed Marijuana use Discussed marijuana cessation at least 7 days prior to surgery date. Discussed increased risks of marijuana use in the perioperative period including, but not limited to, heart attack, stroke, or . PRE-OP RISK ASSESSMENT & OPTIMIZATION Perioperative Risk Scores ? Global - METS 4 or more. ASA Class: 2 ? Cardiac - RCRI: 1, RCRI risk: 1.3 %, Casey NAFISA risk (%): 0.1 ? Pulmonary - ELEVATED Pulmonary Risk STOPBANG - 3 ? MISC - AUDIT-C Total Score - Male: 3, AUDIT-C Total Score - Female: (!) 3, RAPT Score: 11 PREOP CARDIAC RISK ASSESSMENT Planned for Time-Sensitive, High risk surgical procedure. No active cardiac conditions. NO known cardiac disease. No chest pain or dyspnea at rest or exertion. EKG: Done today. Tracing reviewed by me & my interpretation is normal sinus rhythm, right bundle branch block. Low risk (Less than 1%) of MACE as per Casey NAFISA cardiac risk calculator, No further preoperative cardiac testing is indicated. Preop Cardiology consult not needed. No prior section cutter. Preop Testing: Prior testing reviewed Perioperative Plan and Recommendations: No H/o anesthesia related adverse events, no Family h/o anesthesia issues H/o urinary retention, monitor perioperatively Alcohol cessation discussed Marijuana cessation discussed, patient made aware of increased risk of heart attack around time of surgery with continued use and advised to stop 7 days before surgery. MEDICATION INSTRUCTIONS TO FOLLOW BEFORE SURGERY Medication Sig Note aspirin (Aspirin 81) 81 MG chewable tablet Chew 1 tablet (81 mg total) every morning. Hold 7 days before surgery. Take last dose on 12/26/24. atorvastatin (LIPITOR) 40 MG tablet Take 1 tablet (40 mg total) by mouth every evening. Take the night before surgery. buPROPion (Wellbutrin SR) 100 MG 12 hr tablet Take 1 tablet (100 mg total) by mouth 2 times a day. Take on the morning of surgery. clonazePAM (KlonoPIN) 1 MG tablet TAKE 1/2 TABLET BY MOUTH TWICE A DAY AND WHOLE TAB AT NIGHT [place] totake as needed, including on the day of surgery. [facility] Magnesium Citrate 1.745 GM/30ML Solution solution every morning. Do NOT take morning of surgery. finasteride (PROSCAR) 5 MG tablet Take 1 tablet (5 mg total) by mouth daily. (Patient taking differently: Take 1 tablet (5 mg total) by mouth every morning.) Take on the morning of surgery. FLUoxetine (PROzac) 20 MG capsule 1 capsule (20 mg total) every morning. 60 mg total dose Take on the morning of surgery. FLUoxetine (PROzac) 40 MG capsule 1 capsule (40 mg total) every morning. 60 mg total dose Take on the morning of surgery. mirtazapine (REMERON) 45 MG tablet Take the night before surgery. Multiple Vitamins-Minerals (MULTI VITAMIN/MINERALS PO) 1 Dose daily. Hold 7 days before surgery. Take last dose on 12/26/2024. PANTOprazole (PROTONIX) 40 MG EC tablet Take 1 tablet (40 mg total) by mouth every morning. Take onthe morning of surgery. traZODone (DESYREL) 100 MG tablet 1 tablet (100 mg total) nightly. Take the night before surgery. Risk assessment & appropriate instructions reviewed with the patient and/or family in layman's terms. They verbalized understanding. Subjective HISTORY OF PRESENT ILLNESS Chief complaint - Lanre Whitt is a 74 y.o. adult seen today for a preoperative assessment. Relevant Brief history for Procedural indication - This is a 74 y.o. year old adult who presents merged with [facility] for preoperative risk stratification as patient is scheduled for the above procedure. Positive for Recent illness, ER visit or hospitalization (urgent care visit for tinnitus and constipation), Cancer (prostate), H/o COVID-19 (2021: mild symptoms) Negative for Heart disease/stents, Irregular heart beat or arrhythmia, Implantable device, DM or Pre-Diabetes, Hypertension, Lung disease, Kidney disease, Liver disease, Immunocompromised, JABARI, Stroke or TIA, Seizure disorder, Vascular disease or stents, DVT or PE, Clotting disorder, Assistive devices, Corticosteroid Use, H/o MRSA, H/o Cdiff, Anemia and H/o transfusion Bleeding risk screening - no h/o Excessive Bleeding, no h/o Bleeding disorder and no Family h/o bleeding disorder. Baseline medications with impact on bleeding risk - NSAIDs or Herbals NO h/o anesthesia related adverse events Accepts blood products (if needed). no Family h/o anesthesia issues, unprovoked DVT or PE and clotting disorder. REVIEW OF SYSTEMS HEENT - Positive for Dentures Cardiovascular - Positive for Dizziness or lightheadedness (due to tinnitus) Dermatologic - Positive for Wound (small abrasion to left arm) Genitourinary - Positive for Frequency, Urgency and Urinary retention (nocturia, weak/hesitant urine stream) Psychiatric - Positive for Depressed mood and Anxiety Respiratory; NEGATIVE except as noted in HPI. Past Medical History: Diagnosis Date Anxiety Benign prostatic hyperplasia 02/2024 COVID-19 x1, Not hospitalized Depression Elevated PSA 02/2024 Erectile dysfunction 07/2023 Hyperlipidemia Prostate cancer (HCC) Urinary incontinence 02/2024 Past Surgical History: Procedure Laterality Date HERNIA REPAIR NASAL SEPTUM SURGERY VASECTOMY 1991 Social History Tobacco Use Smoking status: Former Types: Cigarettes Smokeless tobacco: Never Vaping Use Vaping status: Never Used Substance Use Topics Alcohol use: Yes Alcohol/week: 3.0 standard drinks of alcohol Types: 3 Cans of beer per week Comment: 3 drinks a week Drug use: Yes Frequency: 7.0 times per week Types: Marijuana Comment: Inhales- for arthiritis. Advised to hold for 7 days prior to surgery. Take last dose on 12/26/2024. Family History Problem Relation Age of Onset Cancer Mother Cancer, Bladder Neg Hx Cancer, Kidney Neg Hx Cancer, Prostate Neg Hx No Known Allergies Objective Vitals: 12/18/24 1500 BP: 128/70 BP Location: Right arm Patient Position: Sitting Pulse: 76 Resp: 18 Temp: 97.6 ??F (36.4 ??C) TempSrc: Temporal SpO2: 97% Weight: 72.6 kg (160 lb) Height: 1.651 m (5' 5 ) Body mass index is 26.63 kg/m??. Physical Exam Constitutional - alert. well appearing and not in acute distress. Head - normocephalic. Ear - right and left external ear normal. Eyes - conjunctivae normal and extraocular movements intact. no scleral icterus. Nose - appears normal. no congestion and no rhinorrhea. Neck - supple and normal range of motion. no adenopathy, no carotid bruit and no scars. Oral - no exudate. Cardiovascular - normal rate and regular rhythm. normal heart sounds and normal pulses. no murmur. Pulmonary - breath sounds present bilaterally. no wheezing and no crackles. Abdominal - soft and bowel sounds normal. no distension, no tenderness and no hernia. protuberant Musculoskeletal - no joint swelling, no joint tenderness, no RLE edema and no LLE edema. Skin - warm. no rash, no bruising and no jaundice. Neurological - alert and oriented x 4. Relevant data reviewed No results found for: WBC , HGB , HCT , PLT , NA , K , CL , CO2 , ANIONGAP , CALCIUM , BUN , CREAT , EGFR , GFRAA , GLUC , HGBA1C , PROT , ALBUMIN , GLOBULIN , BILITOT , BILIDIR , AST , ALT , ALKPHOS , PROBNP , MG , TSH , INR , PTT documented in this encounter Miscellaneous Notes * Plan of Care - Maldonado Noland RN - 01/05/2025 3:17 AM EDT Problem: Adult Inpatient Plan of Care Goal: Plan of Care Review Outcome: Progressing Flowsheets (Taken 01/05/2025316) Plan of Care Reviewed With: patient Progress: improving Outcome Evaluation: Patient is alert and oriented x4 on RA, OOB with one assist. Patient reports gas discomfort and ambulation encouraged. Tums given for acid reflux with good effect. Naranjo is patentand draining an adequate amount of urine. Patient is passing flatus. Fall precautions maintained. Will continue with plan of care. * Plan of Care - Karena Martell RN - 01/04/2025 7:57 PM EDT Problem: Adult Inpatient Plan of Care Goal: Plan of Care Review Flowsheets (Taken 01/04/20251954) Outcome Evaluation: Plan for discharge today but the patient complained of intense gas pain and burping this afternoon not resolved with walking or tylenol. Surgical team notified and assessed the patient at the bedside, see notes. Plan for discharge tomorrow. Walking encouraged. * Plan of Care - Madelin Marquez CM - 01/04/2025 8:34 AM EDT Initial Case Management Care Plan Note Assessment completed with patient, medical record review and discussion with clinical team. CC met with the patient using social distancing. Provided a Case Coordination packet with contact information, CC pamphlet and Your Next Step: Care Outside the Hospital brochure to the patient and/or patient workforce services representative. PMH per chart review includes: GERD, Insomnia, anxiety, depression, BPH, Marijuana use, HLD, constipation. Met with patient at bedside to introduce self and role of Case Coordination. Pt lives with spouse in a 2 family home in [place]. He lives on second floor with full flight of stairs to enter. Pt is indep with adl's and iald's at baseline. Demographics, PCP, pharmacy and telephone number confirmed. Pt denies any needs for services at time of discharge. Family will provide transportation to home. Case Coordination will continue to follow for medical readiness. Anticipated transition plan: Home w/family Caregiver/responsible person supports: self/supportive spouse PCP: Confirmed Dr. Sands, Anticipated transportation: Family Referrals made: None Barriers to discharge: labs, advancing diet Madelin Marquez 01/04/2025 8:34 AM * Plan of Care - Maldonado Noland RN - 01/04/2025 4:12 AM EDT Problem: Adult Inpatient Plan of Care Goal: Plan of Care Review Outcome: Progressing Flowsheets (Taken 01/04/2025 0411) Plan of Care Reviewed With: patient Progress: improving Outcome Evaluation: Patient is alert and oriented x4 on RA, OOB with one assist. Pain managed well with current regimen and prn oxycodone. No nausea noted. Naranjo patent and draining an adequate amount of urine. Fall precautions maintained, will continue with plan of care. * Op Note - Juwan Tyson MD - 01/03/2025 11:30 AM EDT Images from the original note were not included. [facility] MAIN OR [address] [facility] [id number] OPERATIVE REPORT Patient Name: Lanre Whitt Date of : 1950 Date of Procedure: 01/03/2025 [facility] Urology Preop Dx: Prostate cancer Postop Dx: Same Procedures: Robotic radical prostatectomy and pelvic lymph node dissection Surgeons: Dr. Juwan Tyson Retail Analytics Manager: CHRISTIE Dugan and Dr. Ramses Seay Anesthesia: General endotracheal Fluids: See anesthesia note EBL: 150 ml Specimens: Prostate, Seminal Vesicles, Debra-Prostatic Fat, and Pelvic Lymph Nodes Complications: None Drains: 18 Fijian Naranjo catheter and ESTRELLITA drain Pertinent findings: None Indications: Jose Eduardo is a 74 y.o. man with an elevated PSA of 14.72 on February 20, 2024. Biopsies on March 18, 2024 show Grade Group(s) 1, 2, 3 prostate cancer; highest Declan score is4+3=7. 12 random systematic areas were biopsied with 3 area(s) demonstrating cancer. There are 0 involved area(s) on the right and 3 on the left. Core volume ranged from 5-30 %. Prostate volume was 55 cc. On rectal examination, the prostate is smooth. TNM stage is cT1c, Stage IIC. NCCN risk is unfavorably intermediate. Prolaris score was elevated 3.6 with a disease specific mortality rate of 9% with conservative treatment. An MRI on May 24, 2024 showed a 55 cc prostate. A PI-RADS 4 lesion was noted in the left posterior lateral mid prostate. There was no evidence of extracapsular extension. The following radiographic imaging was performed for staging: Prostate MRI. I have ordered a PSMA PET scan for further staging. All elements of the EPIC-26 quality of life questionnaire were reviewed with the patient. The questionnaire shows a urinary bother score of 50 and a sexual bother score of 0. There is significant sexual dysfunction. He has decreased force of stream and frequency. We discussed the risks and benefits of active surveillance, radiation therapy, surgical therapy, and experimental options such as high frequency ultrasound, CyberKnife, etc. We contrasted the roboticand open approaches. He has elected to proceed with robotic radical prostatectomy. Description of the procedure: Lanre Whitt was brought to the operating room and placed in a supine position, arms tucked, on a pink pad . General endotracheal anesthesia and IV antibiotics were administered. Care was taken to pad all extremities and pressure points. Venodyne boots were in place and operating. A rectal examination was repeated and a 16 Fijian urethral catheter was placed as a rectal tube. The abdomen and genitals were prepped and draped in the usual sterile fashion. A time-out was performed. An 18F Naranjo catheter was inserted with clear urine return. An 8 mm transverse incision was performed above the umbilicus with a 15 blade scalpel. A Veress needle was easilyplaced. The abdomen was insufflated. Initial insufflation pressures were low indicating placement within the peritoneal cavity. A trocar and camera were inserted. There were no remarkable abdominal findings. Under laparoscopic visualization, three 8-mm robotic trocars and an 11-mm ophthalmology assistant trocar were placed. The patient was placed into 30 degrees of Trendelenburg. The robot was brought into thefield. The second peritoneal reflection was incised using the [place] bipolar device and monopolar scissors. The seminal vesicles and vasa were dissected free from their surrounding structures. The vasa were transected. Denonvilliers fascia was incised and the rectum was swept posteriorly. The medial umbilical ligaments were grasped and pulled to the midline. The peritoneum lateral to them was incised. The vasa were re-transected as they crossed the iliac vessels. After identifying theureters crossing over the iliacs, we performed an extensive pelvic lymph node dissection. Nodes were labeled in accordance to their anatomic location. The limits of this dissection were the bifurcation of the internal and external iliac artery superiorly, the genitofemoral nerve laterally, the obturator nerve posteriorly, the pelvic sidewall laterally, and the bladder/sigmoid medially. During this process, cautery and clips were used as necessary. The medial umbilical ligaments and urachus were transected. The space of Retzius was developed using blunt dissection and cautery as necessary. The periprostatic fat was swept off the prostate and sent to pathology for permanent sectioning and analysis. The endopelvic fascia was incised bilaterally. The anterior bladder neck was transected. The Naranjo catheter was grasped and raised anteriorly. The posterior bladder neck was examined. The ureteral orifices appeared to be out of harm's way. The posterior bladder neck was then transected. The seminalvesicles and vasa were raised anteriorly. The prostatic pedicles were controlled with Weck clips. On the left side, I marched along the bundle with clips. On the right side, the bundle was handled in the same fashion. Overall, I would consider this a bilateral nerve sparing prostatectomy. The dorsal vein was transected sharply with scissors. The urethra and rectourethralis were transected sharply with scissors. The specimen was placed in a retrieval bag for later removal. The pelvis was irrigated with normal saline. Insufflation pressures were dropped. The dorsal vein was controlled with a [address] needle. 4-0 Vicryl's on an RB needle were used to control a few oozing vessels on the neurovascular bundles. We then had good hemostasis at low insufflation pressures. The urethrovesical anastomosis was performed with a running 2-0 Monocryl suture. Given the shape ofthe prostate, the anterior bladder neck was a bit fish[place] but I did not feel an anterior bladder neck repair was required. A fresh 18 F Naranjo catheter was placed. The bladder was filled. There isslight leakage under pressure between some of the suture lines. These were further approximated with 4-0 Monocryl sutures. This improved the situation but there was still a bit of seepage. Surgicel was placed along each neurovascular bundle. We recently completed a randomized prospective trial demonstrating a peritoneal bladder flap can decrease the rates of lymphocele formation. I approximated the bladder peritoneal flap in a [id number] fashion just above the vas deferens on each side utilizing 2-0 Vicryl suture. An additional 2-0 Vicryl suture was used cranial to this to further approximate the lateral edges of the bladder periton eum. This exposed the iliac vessels nicely to hopefully prevent the bladder from falling against itand forming a lymphocele. Given the leakage at the bladder neck, a Manjit-Montano drain was brought in through the left lower trocar. All trocars were removed under laparoscopic visualization. There was no bleeding. The drain was secured with a 2-0 Vicryl suture. The supraumbilical incision was enlarged just enough to removethe specimen. The fascia was closed with running 0 Vicryl sutures. All wounds were anesthetized with 0.5% Marcaine. All skin incisions were closed with 4-0 Monocryl subcuticularly. Dermabond was applied. Sponge and instrument counts at the end of the case were correct, and the patient went to recovery in stable condition. Juwan Tyson 01/03/2025 11:50 AM documented in this encounter Plan of Treatment Upcoming Encounters Date Type Department Care Team (Late st Contact Info) Description 01/13/2025 8:00 AM EDT Office Visit [facility] Urologic Surgery [address] [phone] Juwan Tyson MD [address] [id number] Pending Results Name Type Priority Associated Diagnoses Date /Time Pathology Pathology and Cytology Routine 2:24 PM EDT Scheduled Orders Name Type Priority Associated Diagnoses Orde r Schedule Pathology Pathology and Cytology Routine Re lease Upon Ordering for 1 Occurrences starting 01/03/2025 documented as of this encounter Procedures Procedure Name Priority Date/Time Associated Diagnosis Comments BASIC METABOLIC PANEL Routine 01/04/2025 8:28 AM EDT CREATININE, BODY FLUID Routine 01/04/2025 3:44 AM EDT documented in this encounter Results * (ABNORMAL) Basic Metabolic Panel (01/04/2025 8:28 AM EDT) Glucose 101(H) 65 - 99 mg/dL 01/04/2025 9:19 AM [facility] Comment:Fasting: <100 mg/dL, Non-Fasting: <200 mg/dL (ADA 2004) Blood Urea Nitrogen (BUN) 11 8 - 21 mg/dL 01/04/2025 9:19 AM [facility] Creatinine 0.8 0.5 - 1.3 mg/dL 01/04/2025 9:19 AM [facility] eGFR >90 >59 01/04/2025 9:19 AM [facility] Comment:CKD-EPI (2020) in mL /min/1.73 sq meters. Sodium 138 136 - 145 mmol/L 01/04/2025 9:19 AM [facility] Potassium 4.0 3.4 - 5.3 mmol/L 01/04/2025 9:19 AM [facility] Chloride 103 98 - 107 mmol/L 01/04/2025 9:19 AM [facility] CO2 26 22 - 33 mmol/L 01/04/2025 9:19 AM [facility] Anion Gap 9 7 - 17 01/04/2025 9:19 AM [facility] Calcium 8.5(L) 8.7 - 10.5 mg/dL 01/04/2025 9:19 AM EDT [facility] BUN/Creatinine Ratio 14 10.0 - 25.0 Ratio 01/04/2025 9:19 AM EDT [facility] Blood Blood specimen / Unknown 01/04/2025 8:28 AM EDT 01/04/2025 8:47 AM EDT us Juwan Tyson MD LAB BLOOD ORDERABLES Fin al Result Performing Organization Address [facility] [place] [address], [place] [address] * Creatinine, Body Fluid: ESTRELLITA drain LEFT Post Op day #1 (01/04/2025 3:44 AM EDT) Creatinine, Body Fluid 1.6 mg/dL 01/04/2025 4:16 AM EDT [facility] Comment:The reference interv al(s) and other method performance specifications are unavailable for this body fluid. Comparison of this result with the concentration in the blood, serum, or plasma is recommended. FLUID SOURCE Abdominal Cavity 01/04/2025 3:21 AM EDT [facility] Comment:Fluid, Peritoneal Fluid, Peritoneal (Abdominal Cavity) 01/04/2025 3:44 AM EDT 01/04/2025 3:51 AM EDT us Juwan Tyson MD BODY FLUIDS AND STOOLS O RDERABLES Final Result Performing Organization Address [facility] [place] [address], [address] [address] documented in this encounter Visit Diagnoses Diagnosis Prostate cancer (HCC)- Primary Malignant neoplasm of prostate Prostate cancer (HCC) Malignant neoplasm of prostate documented in this encounter Admitting Diagnoses Diagnosis Prostate cancer (HCC) Malignant neoplasm of prostate documented in this encounter Administered Medications Inactive Administered Medications - up to 1 most recent administrations Medication Order MAR Action Action Date Dose Rate Site sodium chloride 0.9 % (NS) bolus 500 mL, Intravenous, Administer over 0.5 Hours, Once, On Mon01/03/25 at 1800, For 1 dose, PACU (only) New Bag 01/03/2025 6:27 PM EDT 500 mL 1000 mL/hr sodium chloride 0.9% (NS) infusion 75 mL/hr, Intravenous, Continuous, Starting on Mon01/03/25 at 1800, PACU to Post-Op New Bag 01/05/2025 5:47 AM EDT 75 mL/hr 75 mL/hr acetaminophen (TYLENOL) tablet 975 mg 975 mg, Oral, Every 6 hours PRN, mild pain 1-3, fever greater than 101.5, Starting on Mon01/03/25 at 2028, May use for pain when patient is tolerating PO Given 01/05/2025 5:42 AM EDT 975 mg atorvastatin (LIPITOR) tablet 40 mg 40 mg, Oral, Every evening, First dose on Mon01/03/25 at 2030 Given 01/04/2025 8:52 PM EDT 40 mg buPROPion (WELLBUTRIN SR) 12 hr tablet 100 mg 100 mg, Oral, 2 times daily, First dose on Mon01/03/25 at 2100, Do not crush, chew, or split tablet. Given 01/05/2025 8:32 AM EDT 100 mg calcium carbonate (TUMS) chewable tablet 1,000 mg 1,000 mg, Oral, Every 12 hours PRN, indigestion, heartburn, Starting on Mon01/03/25 at 1734, PACU to Post-Op Given 01/04/2025 8:53 PM EDT 1,000 mg ceFAZolin (ANCEF) 1 g in sodium chloride-MBP (NS) 100 mL IVPB 1 g, Intravenous, Administer over 30 Minutes, Every 8 hours, First dose on Mon01/03/25 at 1800, For 2 doses, PACU to Post-Op, All antimicrobials used at [facility] require an indication. Please complete the following documentation. Surgical Prophylaxis New Bag 01/04/2025 1:53 AM EDT 1 g 200 mL/hr chlorhexidine gluconate 2 % wipes - daily CHG application Topical, Daily, First dose on Mon01/03/25 at 1800, PACU to Post-Op, For daily use in patients with Urethral Catheter, Central Line, Loza, or Port-a-Cath. Each pack = 6 wipes. Dose = 1 each. Given 01/04/2025 10:20 AM EDT 1 each clonazePAM (KlonoPIN) tablet 0.5 mg 0.5 mg, Oral, Every morning, First dose on Mon01/04/25 at 1100, Hazardous Level Medium B Special Handling See Hazardous Medication Policy & Procedures for more information. Given 01/04/2025 1:23 PM EDT 0.5 mg clonazePAM (KlonoPIN) tablet 1.5 mg 1.5 mg, Oral, Nightly, First dose on Mon01/03/25 at 2100, Hazardous Level Medium B Special Handling See Hazardous Medication Policy & Procedures for more information. Given 01/04/2025 8:52 PM EDT 1.5 mg docusate sodium (COLACE) capsule 100 mg 100 mg, Oral, 2 times daily, First dose on Mon01/03/25 at 2100 Given 01/05/2025 8:31 AM EDT 100 mg fentaNYL (SUBLIMAZE) 100 mcg/2 mL injection 25 mcg 25 mcg, Intravenous, Every 5 min PRN, moderate to moderately severe pain 4-6, Starting on Mon01/03/25 at 1839, For 7 days, PACU (only), If a total of 200 mcg has been administered across all pain scales, contact an anesthesia provider for reassessment For IV Push, administer over 3 minutes. Given 01/03/2025 7:34 PM EDT 25 mcg FLUoxetine (PROzac) capsule 60 mg 60 mg, Oral, Daily, First dose on Mon01/03/25 at 2030 Given 01/05/2025 8:31 AM EDT 60 mg heparin (porcine) 5000 unit/mL injection 5,000 Units 5,000 Units, Subcutaneous, Once, On Mon01/03/25 at 0930, For 1 dose, Pre-op, For subcutaneous use the injection sites should be rotated (usually left and right portions of the abdomen, above iliac crest). Given 01/03/2025 10:04 AM EDT 5,000 Units Left Arm heparin (porcine) 5000 unit/mL injection 5,000 Units 5,000 Units, Subcutaneous, Every 8 hours scheduled, First dose on Mon01/03/25 at 2200, PACU to Post-Op, For subcutaneous use the injection sites should be rotated (usually left and right portions of the abdomen, above iliac crest). Given 01/05/2025 5:43 AM EDT 5,000 Units Right Arm mirtazapine (REMERON) tablet 45 mg 45 mg, Oral, Nightly, First dose on Mon01/03/25 at 2100 Given 01/04/2025 8:53 PM EDT 45 mg multivitamin with minerals tablet 1 tablet 1 tablet, Oral, Daily, First dose on Mon01/03/25 at 2030 Given 01/05/2025 8:32 AM EDT 1 tablet ondansetron (ZOFRAN) injection 4 mg 4 mg, Intravenous, Every 6 hours PRN, nausea, vomiting, Starting on Mon01/03/25 at 1734, PACU to Post-Op Given 01/04/2025 7:31 PM EDT 4 mg oxyCODONE (ROXICODONE) immediate release tablet 10 mg 10 mg, Oral, Every 3 hours PRN, severe to excruciating pain 7-10, Starting on Mon01/03/25 at 2028, For 7 days, Use when patient is tolerating PO Given 01/04/2025 10:16 AM EDT 10 mg oxyCODONE (ROXICODONE) immediate release tablet 5 mg 5 mg, Oral, Every 3 hours PRN, moderate to moderately severe pain 4-6, Starting on Mon01/03/25 at 1839, For 7 days, PACU (only), Use when patient is tolerating PO Given 01/03/2025 7:33 PM EDT 5 mg oxyCODONE (ROXICODONE) immediate release tablet 5 mg 5 mg, Oral, Every 3 hours PRN, moderate to moderately severe pain 4-6, Starting on Mon01/03/25 at 2028, For 7 days, Use when patient is tolerating PO Given 01/05/2025 8:44 AM EDT 5 mg PANTOprazole (PROTONIX) EC tablet 40 mg 40 mg, Oral, Every morning, First dose on Mon01/04/25 at 0700, *DO NOT CHEW OR CRUSH* Given 01/05/2025 5:42 AM EDT 40 mg documented in this encounter Active and Recently Administered Medications Times are shown in EDT. Scheduled Medication Order 01/03/2025 01/04/2025 01/05/2025 sodium chloride 0.9 % (NS) bolus (COMPLETED) 500 mL, Intravenous, Administer over 0.5 Hours, Once, On Mon01/03/25 at 1800, For 1 dose, PACU (only) 1826 (New Bag - Provider: Viktoriya Alanis RN)1856 (Stopped - Provider: Viktoriya Alanis RN) atorvastatin (LIPITOR) tablet 40 mg 40 mg, Oral, Every evening, First dose on Mon01/03/25 at 2030 211 (Given - Provider: Maldonado Noland, SUE) 2051 (Given - Provider: Maldonado Noland RN) buPROPion (WELLBUTRIN SR) 12 hr tablet 100 mg 100 mg, Oral, 2 times daily, First dose on Mon01/03/25 at 2100, Do not crush, chew, or split tablet. 2150 (Not Given - Provider: Maldonado Noland RN - Reason: Patient/family refused) 1016 (Given - Provider: Karena Martell RN)2051 (Given - Provider: Maldonado Noland, SUE) 0832 (Given - Provider: Yulisa Jackson RN) ceFAZolin (ANCEF) 1 g in sodium chloride-MBP (NS) 100 mL IVPB () 1 g, Intravenous, Administer over 30 Minutes, Every 8 hours, First dose on Mon01/03/25 at 1800, For 2 doses, PACU to Post-Op, All antimicrobials used at [facility] require an indication. Please complete the following documentation. Surgical Prophylaxis 1734 (Not Given - Provider: Viktoriya Alanis RN - Reason: Other - Comment required) 0153 (New Bag - Provider: Maldonado Noland RN)0223 (Stopped - Provider: Maldonado Noland RN) ceFAZolin (ANCEF) 2 g in 20 mL SWFI syringe (premix) (COMPLETED) 2 g, Intravenous, Once, On Mon01/03/25 at 0930, For 1 dose, Pre-op, All antimicrobials used at [facility] require an indication. Please complete the following documentation. Surgical Prophylaxis 1334 (Given - Provider: Tracey Porras CRNA)1734 (Given - Provider: Chaz Villela CRNA - Comment: redose now per Dr. Tyson) chlorhexidine gluconate 2 % wipes - daily CHG application Topical, Daily, First dose on Mon01/03/25 at 1800, PACU to Post-Op, For daily use in patients with Urethral Catheter, Central Line, Loza, or Port-a-Cath. Each pack = 6 wipes. Dose = 1 each. 1827 (Not Given - Provider: Viktoriya Alanis RN - Reason: Other - Comment required) 1020 (Given - Provider: Karena Martell RN) 0900 (Due) clonazePAM (KlonoPIN) tablet 0.5 mg 0.5 mg, Oral, Every morning, First dose on Mon01/04/25 at 1100, Hazardous Level Medium B Special Handling See Hazardous Medication Policy & Procedures for more information. 1017 (Not Given - Provider: Karena Martell RN - Reason: Patient/family refused)1323 (Given - Provider: Karena Martell RN) 1100 (Due - Provider: Maldonado Noland RN) clonazePAM (KlonoPIN) tablet 1.5 mg 1.5 mg, Oral, Nightly, First dose on Mon01/03/25 at 2100, Hazardous Level Medium B Special Handling See Hazardous Medication Policy & Procedures for more information. 2136 (Given - Provider: Maldonado Noland RN) 2051 (Given - Provider: Maldonado Noland RN) docusate sodium (COLACE) capsule 100 mg 100 mg, Oral, 2 times daily, First dose on Mon01/03/25 at 2100 213 (Given - Provider: Maldonado Noland, SUE) 1016 (Given - Provider: Karena Martell RN)2103 (Given - Provider: Maldonado Noland RN) 0831 (Given - Provider: Yulisa Jackson, SUE) FLUoxetine (PROzac) capsule 60 mg 60 mg, Oral, Daily, First dose on Mon01/03/25 at 2030 2110 (Not Given - Provider: Maldonado Noland RN - Reason: Patient/family refused) 1017 (Given - Provider: Karena Martell RN) 0831 (Given - Provider: Yulisa Jackson, SUE) heparin (porcine) 5000 unit/mL injection 5,000 Units (COMPLETED) 5,000 Units, Subcutaneous, Once, On Mon01/03/25 at 0930, For 1 dose, Pre-op, For subcutaneous use the injection sites should be rotated (usually left and right portions of the abdomen, above iliac crest). 1004 (Given - Provider: Kristina Clark RN) heparin (porcine) 5000 unit/mL injection 5,000 Units 5,000 Units, Subcutaneous, Every 8 hours scheduled, First dose on Mon01/03/25 at 2200, PACU to Post-Op, For subcutaneous use the injection sites should be rotated (usually left and right portions of the abdomen, above iliac crest). 2147 (Given - Provider: Maldonado Noland RN) 0531 (Given - Provider: Maldonado Noland RN)1318 (Given - Provider: Karena Martell RN)2052 (Given - Provider: Maldonado Noland, SUE) 0543 (Given - Provider: Maldonado Noland, SUE) mirtazapine (REMERON) tablet 45 mg 45 mg, Oral, Nightly, First dose on Mon01/03/25 at 2099 2144 (Given - Provider: Maldonado Noland, SUE) 2052 (Given - Provider: Maldonado Noland, RN) multivitamin with minerals tablet 1 tablet 1 tablet, Oral, Daily, First dose on Mon01/03/25 at 2030 2110 (Not Given - Provider: Maldonado Noland RN - Reason: Patient/family refused) 1016 (Given - Provider: Karena Martell RN) 0832 (Given - Provider: Yulisa Jackson RN) PANTOprazole (PROTONIX) EC tablet 40 mg 40 mg, Oral, Every morning, First dose on Mon01/04/25 at 0700, *DO NOT CHEW OR CRUSH* 0534 (Given - Provider: Maldonado Noland RN) 0542 (Given - Provider: Maldonado Noland, SUE) traZODone (DESYREL) tablet 100 mg 100 mg, Oral, Nightly, First dose on Mon01/03/25 at 2100 2109 (Not Given - Provider: Maldonado Noland RN - Reason: Patient/family refused) 2100 (Not Given - Provider: Maldonado Noland RN - Reason: Patient/family refused) Continuous Medication Order 01/03/2025 01/04/2025 01/05/2025 sodium chloride 0.9% (NS) infusion 75 mL/hr, Intravenous, Continuous, Starting on Mon01/03/25 at 1800, PACU to Post-Op 1857 (New Bag - Provider: Viktoriya Alanis RN)1900 (Rate/Dose Verify - Provider: Viktoriya Alanis RN)2000 (Rate/Dose Verify - Provider: Viktoriya Alanis RN)2138 (New Bag - Provider: Maldonado Noland RN) 0532 (New Bag - Provider: Maldonado Noland RN)1415 (Continue Running Infusion - Provider: Karena Martell RN)1553 (Rate/Dose Change - Provider: Karena Martell RN) 0547 (New Bag - Provider: Maldonado Noland RN)1348 (Due: Stopped) PRN Medication Order 01/03/2025 01/04/2025 01/05/2025 acetaminophen (TYLENOL) tablet 975 mg 975 mg, Oral, Every 6 hours PRN, mild pain 1-3, fever greater than 101.5, Starting on Mon01/03/25 at 2027, May use for pain when patient is tolerating PO 2138 (Given - Provider: Maldonado Noland RN) 1228 (Given - Provider: Karena Martell RN)1827 (Given - Provider: Karena Martell RN) 0542 (Given - Provider: Maldonado Noland RN) bupivacaine preservative free (MARCAINE) 0.5 % injection (CANCELED) Once PRN, Starting on Mon01/03/25 at 1730, Intra-op 173 (Given - Provider: Juwan Tyson MD) calcium carbonate (TUMS) chewable tablet 1,000 mg 1,000 mg, Oral, Every 12 hours PRN, indigestion, heartburn, Starting on Mon01/03/25 at 1734, PACU to Post-Op 2052 (Given - Provider: Maldonado Noland RN) fentaNYL (SUBLIMAZE) 100 mcg/2 mL injection 25 mcg (CANCELED)(Linked Group 1) 25 mcg, Intravenous, Every 5 min PRN, moderate to moderately severe pain 4-6, Starting on Mon01/03/25 at 1839, For 7 days, PACU (only), If a total of 200 mcg has been administered across all pain scales, contact an anesthesia provider for reassessment For IV Push, administer over 3 minutes. 193 (Given - Provider: Viktoriya Alanis RN) naloxone (NARCAN) 0.4 mg/mL injection 0.4 mg 0.4 mg, Intravenous, Once PRN, opioid reversal, respiratory depression, Starting on Mon01/03/25 at 202, For 1 dose ondansetron (ZOFRAN) injection 4 mg 4 mg, Intravenous, Every 6 hours PRN, nausea, vomiting, Starting on Mon01/03/25 at 1734, PACU to Post-Op 1318 (Given - Provider: Karena Martell, SUE)1931 (Given - Provider: Maldonado Noland, SUE) oxyCODONE (ROXICODONE) immediate release tablet 10 mg 10 mg, Oral, Every 3 hours PRN, severe to excruciating pain 7-10, Starting on Mon01/03/25 at 2027, For 7 days, Use when patient is tolerating PO 0151 (Given - Provider: Maldonado Noland RN)0533 (Given - Provider: Maldonado Noland RN)1016 (Given - Provider: Karena Martell, SUE)1323 (Not Given - Provider: Karena Martell RN - Reason: Patient/family refused) oxyCODONE (ROXICODONE) immediate release tablet 5 mg (CANCELED)(Linked Group 2) 5 mg, Oral, Every 3 hours PRN, moderate to moderately severe pain 4-6, Starting on Mon01/03/25 at 1839, For 7 days, PACU (only), Use when patient is tolerating PO 1933 (Given - Provider: Viktoriya Alanis RN) oxyCODONE (ROXICODONE) immediate release tablet 5 mg 5 mg, Oral, Every 3 hours PRN, moderate to moderately severe pain 4-6, Starting on Mon01/03/25 at 2027, For 7 days, Use when patient is tolerating PO 0844 (Given - Provider: Yulisa Jackson RN) Linked Groups Order Group 1: fentaNYL (SUBLIMAZE) 100 mcg/2 mL injection 15 mcg (CANCELED) 15 mcg, Intravenous, Every 5 min PRN, mild pain 1-3, Starting on Mon01/03/25 at 1839, For 7 days, PACU (only), If a total of 200 mcg has been administered across all pain scales, contact an anesthesia provider for reassessment For IV Push, administer over 3 minutes. Or fentaNYL (SUBLIMAZE) 100 mcg/2 mL injection 25 mcg (CANCELED)Jump to med 25 mcg, Intravenous, Every 5 min PRN, moderate to moderately severe pain 4-6, Starting on Mon01/03/25 at 1839, For 7 days, PACU (only), If a total of 200 mcg has been administered across all pain scales, contact an anesthesia provider for reassessment For IV Push, administer over 3 minutes. Or fentaNYL (SUBLIMAZE) 100 mcg/2 mL injection 37.5 mcg (CANCELED) 37.5 mcg, Intravenous, Every 5 min PRN, severe to excruciating pain 7-10, Starting on Mon01/03/25 at 1839, For 7 days, PACU (only), If a total of 200 mcg has been administered across all pain scales, contact an anesthesia provider for reassessment For IV Push, administer over 3 minutes. Group 2: oxyCODONE (ROXICODONE) immediate release tablet 5 mg (CANCELED)Jump to med 5 mg, Oral, Every 3 hours PRN, moderate to moderately severe pain 4-6, Starting on Mon01/03/25 at 1839, For 7 days, PACU (only), Use when patient is tolerating PO Or oxyCODONE (ROXICODONE) immediate release tablet 10 mg (CANCELED) 10 mg, Oral, Every 3 hours PRN, severe to excruciating pain 7-10, Starting on Mon01/03/25 at 1839, For 7 days, PACU (only), Use when patient is tolerating PO documented in this encounter Care Teams Filing Machine Operator Relationship Specialty Start Date End Date Jarad Joseph MD [address] [place] [address] PCP - General Family Medicine 08/23/24 documented as of this encounter
--- OUTSIDE RECORDS SUMMARY | 2025-01-03 11:30 | XMS_ITS | Encounter Summary ---
Author Organization [facility] Address [address] [place] [id number] Care Team Providers Care Stapler Machine Name Role Phone Jarad Joseph MD Primary Care Provider + [phone] Reason for Visit * Auth/Cert Specialty Diagnoses / Procedures Referred By Contac t Referred To Contact Diagnoses Malignant neoplasm of prostate (HCC) Procedures OH LAPS SURG [id number] RPBIC RAD W/NRV SPARING ROBOT ROBOTIC RADICAL PROSTATECTOMY AND PELVIC LYMPH NODE DISSECTION Referral ID Status Reason Start Date Expiration Date Visits Re quested Visits Authorized [id number] 1 1 Encounter Details Date Type Department Care Team (Late st Contact Info) Description 01/03/2025 11:30 AM EDT - 01/03/2025 3:30 PM EDT Surgery [facility] Perioperative Surgical Services [address] [place] [phone] Juwan Tyson MD [address] [id number] ROBOTIC RADICAL PROSTATECTOMY AND PELVIC LYMPH NODE DISSECTION Social History Tobacco Use Types Packs/Day Years Used Date Smoking Tobacco: Former Cigarettes Smokeless Tobacco: Never Alcohol Use Standard Drinks/Week Comments Yes 3 (1 standard drink = 0.6 oz pur e alcohol) 3 drinks a week [facility] Utilities Answer Date Recorded In the past 12 months has e electric, gas, oil, or water company threatened [...] any time in the past 12 m [facility], were you homeless or living in a care home (including now)? No 01/04/2025 Sex and Gender Information Value Date Recorded Sex Assigned at Male 10/14/2024 10:25 AM EDT Legal Sex Male 6:34 PM EST Gender Identity Agender 10/14/2024 10:25 AM EDT Sexual Orientation Heterosexual (straight) 10/14 10:25 AM EDT documented as of this encounter Last Filed Vital Signs Vital Sign Reading Time Taken Comments Blood Pressure 137/68 01/03/2025 9:35 AM EDT Pulse 65 01/03/2025 9:35 AM EDT Temperature 36.1 C (96.9 F) 01/03/2025 9:35 AM EDT Respiratory Rate 16 01/03/2025 9:35 AM EDT Oxygen Saturation 97% 01/03/2025 9:35 AM EDT Inhaled Oxygen Concentration - - [...] * Indwelling Urinary Catheter Bag Care Adult ([place]wand[place]) documented in this encounter Medications at Time [...] cancer (HCC) As needed for opioid overdose. Cutler contents (4mg) into one nostril once. May [...] pt and verbalized understanding. Pt transferred to [facility] via wheelchair. * Douglas Kraus RN [...] Clear Liquid Date 01/04/25 07 - 01/05/25 0659 01/05/25 07 - 01/06/25 0659 Shift [id number] [id number] 24 Hour Total [id number] 3931-7832 6322-0731 24 Hour Total INTAKE P[address] 180 [...] were you homeless or living in a care home (including now)? N Food Insecurity Within the [...] In the past 12 months has the [employer], gas, oil, or water [employer] threatened to shut off services in your [...] Coordination/Tasks Status Insurance Benfits/Coverage Discussed with Patient EUGENERR Completed No Plan Plan Home w/family Patient/Family [...] Preop Cardiology consult not needed. 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 Preop Testing: Prior testing reviewed Perioperative Plan [...] 74 y.o. year old adult who presents [facility] for preoperative risk stratification [...] Hospital brochure to the patient and/or patient payable representative. PMH per chart review includes: GERD, Insomnia, anxiety, depression, BPH, Marijuana use, HLD, constipation. Met with patient at bedside to introduce self and role of Case Coordination. Pt lives with spouse in a 2 family home in [place]. He lives on second floor with full [...] from the original note were not included. [facility] OR [address] [facility] [id number] OPERATIVE REPORT Patient Name: Lanre Whitt Date of : 1950 Date of Procedure: 01/03/[address] [facility] Urology Preop Dx: Prostate cancer Postop Dx: Same Procedures: Robotic radical prostatectomy and pelvic lymph node dissection Surgeons: Dr. Juwan yTson Assistant Men'S Soccer Coach: CHRISTIE Dugan and Dr. Ramses Seay Anesthesia: General endotracheal Fluids: See anesthesia note EBL: 150 ml Specimens: Prostate, Seminal Vesicles, Debra-Prostatic Fat, and Pelvic Lymph Nodes Complications: None Drains: 18 [place] Naranjo catheter and ESTRELLITA drain Pertinent findings: None Indications: Jose Eduardo is a 74 y.o. man with an elevated PSA of 14.72 on February 20, 2024. Biopsies on March 18, 2024 show Grade Group(s) 1, 2, 3 prostate cancer; highest Marion score is4+3=7. 12 random systematic areas were [...] rectal examination was repeated and a 16 [place] urethral catheter was placed as a rectal [...] three 8-mm robotic trocars and an 11-mm assistant warehouse manager trocar were placed. The patient was placed [...] posterior bladder neck was then transected. The seminal vesicles and vasa were raised anteriorly. The prostatic [...] approximated the bladder peritoneal flap in a [id number] fashion just above the vas deferens on [...] Description 01/13/2025 8:00 AM EDT Office Visit [facility] Urologic Surgery [address] [phone] Juwan Tyson MD [address] [place] [phone] Pending Results Name Type Priority Associated Diagnoses [...] 65 - 99 mg/dL 01/04/2025 9:19 AM [facility] Comment:Fasting: <100 mg/dL, Non-Fasting: <200 mg/dL (ADA 2004) Blood Urea Nitrogen (BUN) 11 8 - 21 mg/dL 01/04/2025 9:19 AM [facility] Creatinine 0.8 0.5 - 1.3 mg/dL 01/04/2025 9:19 AM [facility] eGFR >90 >59 01/04/2025 9:19 AM [facility] Comment:CKD-EPI (2020) in mL /min/1.73 sq meters. Sodium 138 136 - 145 mmol/L 01/04/2025 9:19 AM [facility] Potassium 4.0 3.4 - 5.3 mmol/L 01/04/2025 9:19 AM [facility] Chloride 103 98 - 107 mmol/L 01/04/2025 9:19 AM [facility] CO2 26 22 - 33 mmol/L 01/04/2025 9:19 AM [facility] Anion Gap 9 7 - 17 01/04/2025 9:19 AM [facility] Calcium 8.5(L) 8.7 - 10.5 mg/dL 01/04/2025 9:19 AM EDT [facility] BUN/Creatinine Ratio 14 10.0 - 25.0 Ratio 01/04/2025 9:19 AM EDT [facility] Blood Blood specimen / Unknown 01/04/2025 8:28 AM EDT 01/04/2025 8:47 AM EDT Juwan Tyson MD LAB BLOOD ORDERABLES Fin al Result Performing Organization Address [facility] [place] [address], [address] [id number] * Creatinine, Body Fluid: ESTRELLITA drain LEFT Post Op day #1 (01/04/2025 3:44 AM EDT) Creatinine, Body Fluid 1.6 mg/dL 01/04/2025 4:16 AM EDT [facility] Comment:The reference interv al(s) and other method performance specifications are unavailable for this body fluid. Comparison of this result with the concentration in the blood, serum, or plasma is recommended. FLUID SOURCE Abdominal Cavity 01/04/2025 3:21 AM EDT [facility] Comment:Fluid, Peritoneal Fluid, Peritoneal (Abdominal Cavity) 01/04/2025 3:44 AM EDT 01/04/2025 3:51 AM EDT Juwan Tyson MD BODY FLUIDS AND STOOLS O RDERABLES Final Result Performing Organization Address [facility] Co de Phone Number [address] [address], [address] [address] documented in this encounter Visit Diagnoses Diagnosis Prostate cancer (HCC)- Primary Malignant neoplasm of prostate Prostate cancer (HCC) Malignant neoplasm of prostate Malignant neoplasm of prostate (HCC) Malignant neoplasm of prostate documented in this encounter Admitting Diagnoses Diagnosis Prostate cancer (HCC) Malignant neoplasm of prostate documented in this encounter Administered Medications Inactive Administered Medications - up to 1 most recent administrations Medication Order MAR Action Action Date Dose Rate Site sodium chloride 0.9% (NS) infusion 75 mL/hr, [...] Given 01/04/2025 8:52 PM EDT 40 mg bupivacaine preservative free (MARCAINE) 0.5 % injection Once PRN, Starting on Mon01/03/25 at 1730, Intra-op Given 01/03/2025 5:30 PM EDT 30 mL Abdomen buPROPion (WELLBUTRIN SR) 12 hr tablet 100 [...] Given 01/04/2025 8:53 PM EDT 1,000 mg chlorhexidine gluconate 2 % wipes - daily [...] Given 01/05/2025 8:31 AM EDT 100 mg FLUoxetine (PROzac) capsule 60 mg 60 mg, Oral, Daily, First dose on Mon01/03/25 at 2029 Given 01/05/2025 8:31 AM EDT 60 mg [...] Oral, Daily, First dose on Mon01/03/25 at 2029 Given 01/05/2025 8:32 AM EDT 1 tablet [...] at 1800, For 1 dose, PACU (only) 182 (New Bag - Provider: Viktoriya Alanis RN)1856 (Stopped - Provider: Viktoriya Alanis RN) atorvastatin (LIPITOR) tablet 40 mg 40 mg, Oral, Every evening, First dose on Mon01/03/25 at 2030 2111 (Given - Provider: Maldonado Noland RN) 2051 (Given - Provider: Maldonado Noland RN) buPROPion (WELLBUTRIN SR) 12 hr tablet 100 mg 100 mg, Oral, 2 times daily, First dose on Mon01/03/25 at 2100, Do not crush, chew, or split tablet. 2150 (Not Given - Provider: Maldonado Noland RN - Reason: Patient/family refused) 1016 (Given - Provider: Karena Martell RN)2051 (Given - Provider: Maldonado Noland RN) 0832 (Given - Provider: Yulisa Jackson RN) ceFAZolin (ANCEF) 1 g in sodium chloride-MBP (NS) 100 mL IVPB () 1 g, Intravenous, Administer over 30 Minutes, Every 8 hours, First dose on Mon01/03/25 at 1800, For 2 doses, PACU to Post-Op, All antimicrobials used at [facility] require an indication. Please complete the following [...] 1 dose, Pre-op, All antimicrobials used at [facility] require an indication. Please complete the following [...] Noland RN) 2051 (Given - Provider: Maldonado Noland, SUE) docusate sodium (COLACE) capsule 100 mg 100 mg, Oral, 2 times daily, First dose on Mon01/03/25 at 2100 2137 (Given - Provider: Maldonado Noland RN) 1016 (Given - Provider: Karena Martell RN)2103 (Given - Provider: Maldonado Noland RN) 0831 (Given - Provider: Yulisa Jackson RN) FLUoxetine (PROzac) capsule 60 mg 60 mg, Oral, Daily, First dose on Mon01/03/25 at 2030 2110 (Not Given - Provider: Maldonado Noland RN - Reason: Patient/family refused) 1017 (Given - Provider: Kaerna Martell RN) 0831 (Given - Provider: Yulisa Jackson, RN) heparin (porcine) 5000 unit/mL injection 5,000 [...] Martell RN)2052 (Given - Provider: Maldonado Noland, RN) 0543 (Given - Provider: Maldonado Noland, RN) mirtazapine (REMERON) tablet 45 mg 45 mg, Oral, Nightly, First dose on Mon01/03/25 at 2099 2145 (Given - Provider: Maldonado Noland, RN) 2052 (Given - Provider: Maldonado Noland, RN) multivitamin with minerals tablet 1 tablet 1 tablet, Oral, Daily, First dose on Mon01/03/25 at 20290 (Not Given - Provider: Maldonado Noland RN - Reason: Patient/family refused) 1016 (Given - Provider: Karena Martell RN) 0832 (Given - Provider: Yulisa Jackson, RN) PANTOprazole (PROTONIX) EC tablet 40 mg [...] Alanis RN)2000 (Rate/Dose Verify - Provider: Viktoriya Alanis, RN)2138 (New Bag - Provider: Maldonado Noland [...] PRN, Starting on Mon01/03/25 at 1730, Intra-op 1730 (Given - Provider: Juwan Tyson MD) calcium [...] reversal, respiratory depression, Starting on Mon01/03/25 at 2027, For 1 dose ondansetron (ZOFRAN) injection 4 mg 4 mg, Intravenous, Every 6 hours PRN, nausea, vomiting, Starting on Mon01/03/25 at 1734, PACU to Post-Op 1318 (Given - Provider: Karena Martell RN)193 (Given - Provider: Maldonado Noland RN) oxyCODONE (ROXICODONE) immediate release tablet 10 mg 10 mg, Oral, Every 3 hours PRN, severe to excruciating pain 7-10, Starting on Mon01/03/25 at 2027, For 7 days, Use when patient is tolerating PO 0151 (Given - Provider: Maldonado Noland RN)0533 (Given - Provider: Maldonado Noland RN)1016 (Given - Provider: Karena Martell RN)1323 (Not Given - Provider: Karena Martell RN - Reason: Patient/family refused) oxyCODONE (ROXICODONE) immediate release tablet 5 mg (CANCELED)(Linked Group 2) 5 mg, Oral, Every 3 hours PRN, moderate to moderately severe pain 4-6, Starting on Mon01/03/25 at 1839, For 7 days, PACU (only), Use when patient is tolerating PO 193 (Given - Provider: Viktoriya Alanis RN) oxyCODONE [...] PO documented in this encounter Care Teams Stapler Machine Relationship Specialty Start Date End Date Jarad Joseph MD [address] [place] [address] PCP - General Family Medicine 08/23/24 documented as of this encounter
--- OUTSIDE RECORDS SUMMARY | 2025-01-03 13:19 | XMS_ITS | Encounter Summary ---
Author Organization [facility] Address [address] [place] [id number] Care Team Providers Care First Aid Officer Name Role Phone Jarad Joseph MD Primary Care Provider [phone] Reason for Visit * Auth/Cert Specialty Diagnoses / Procedures Referred By Contac t Referred To Contact Diagnoses Malignant neoplasm of prostate (HCC) Procedures PA LAPS SURG [id number] RPBIC RAD W/NRV SPARING ROBOT ROBOTIC RADICAL PROSTATECTOMY AND PELVIC LYMPH NODE DISSECTION Referral ID Status Reason Start Date Expiration Date Visits Re quested Visits Authorized [id number] 1 1 Encounter Details Date Type Department Care Team (Late st Contact Info) Description 01/03/2025 1:19 PM EDT Anesthesia Event [facility] [address] [place] [phone] Froilan Gaines DO [address] [address] Andrew Sotelo MD [address] [place] [address] [place] [address] Anesthesia Record Procedure Summary Procedure Name Responsible Anesthesiologist Anesthesia Start Time Anesthesia Stop Time ROBOTIC RADICAL PROSTATECTOMY AND PELVIC LYMPH NODE DISSECTION Froilan Dueñas DO 01/03/25 1319 01/03/25 1816 Events Date Time Event Comment 01/03/2025 1230 1319 AN Equip Check 1319 An Start 1319 An Start Data 1324 An Induction 1329 An Intubation 1332 Anesthesia Ready 1343 Skin Incision 1714 Quick Note Robot undocked 1722 Quick Note OGT --> suction ed --> d/c'd with ease 1732 Quick Note Local injected by surgeon at this time 1742 Quick Note OA suctioned 1746 AN Emergence 1805 An Extubation 180 AN Stop Data 1809 AN Pt Transferred 180 AM Pt Transferred 1814 Handoff to Receiving I compl eted my handoff to the receiving clinician during which we: 1. Identified the patient 2. Identified the responsible provider 3. Reviewed pertinent medical history 4. Discussed the surgical or procedural course 5. Reviewed intraoperative management and issues during anesthesia 6. Set expectations for the post-procedure period 7. Allowed opportunity for questions and acknowledgement of understanding. 1815 An Stop 1815 Quick Note Pt in PACU, VSS , awake, comfortable Meds Name Total fentaNYL 50 mcg/mL injection 200 mcg midazolam 1 mg/mL injection 2 mg propofol 10 mg/mL BOLUS 200 mg rocuronium 10 mg/mL injection 150 mg HYDROmorphone 2 mg/mL injection 2 mg lidocaine 2% (PF) injection (vial) 5 mL dexamethasone 4 mg/mL injection 4 mg ondansetron 2 mg/mL injection 4 mg sugammadex 200 mg/2 mL injection 200 mg ceFAZolin (ANCEF) 2 g in 20 mL SWFI syri nge (premix) 4 g LR 100 mL LR 1,000 mL * Agents Name O2 N2O Air Sevoflurane * Blood No blood administrations on file. Lines, Drains, and Airways Type Details Placement Removal Incision (Adult, Obstetrics, Pediatrics) 01/03/25; 1000; abdomen; SKIN GLUE 01/03/25 1000 by Destiny Poon RN Urethral Catheter (Adult) 01/03/25; 1340; indwelling double lumen catheter; latex; 18 Fr; inserted at this facility; 1; 5 mL balloon size; 10 mL balloon inflation volume; none; drainage bag to dependent drainage 01/03/25 1340 by Destiny Poon RN PIV-Single luman 01/03/25; 1006; metacarpal vein (top of hand), right; [id number] catheter system; 20 gauge; Inserted by SUE SHORT; 01/05/25; 1124 01/03/25 1006 by Kristina Clark RN 01/05/25 1124 by Yulisa Jackson RN Airway-Oral/TECHNICAL EDITOR 01/03/25; 1344 (jessica so via procedure documentation); endotracheal tube; 01/03/25; 1805 01/03/25 1344 by Tracey Porras TEMPORARY ADMINISTRATIVE ASSISTANT 01/03/25 1805 by Chaz Villela CRNA Drain/Device Site 01/03/25; 1713; Left ; abdomen; collapsible closed device; 7mm ESTRELLITA flat drain; 01/04/25; 1100 01/03/25 1713 by Cachorro Lainez RN 01/04/25 1100 by Karena Martell RN documented in this encounter Social History Tobacco Use Types Packs/Day Years Used Date Smoking Tobacco: Former Cigarettes Smokeless Tobacco: Never Alcohol Use Standard Drinks/Week Comments Yes 3 (1 standard drink = 0.6 oz pur e alcohol) 3 drinks a week [facility] [employer] Answer Date Recorded In the past 12 months has th e [place], gas, oil, or water [place] threatened to shut off services in your [...] any time in the past [facility], were you homeless or living in a long-term (including now)? No 01/04/2025 Sex and Gender Information Value Date Recorded Sex Assigned at Male 10/14/2024 10:25 AM EDT Legal Sex Male 6:34 PM EST Gender Identity Agender 10/14/2024 10:25 AM EDT Sexual Orientation Heterosexual (straight) 10/14 10:25 AM EDT documented as of this encounter Last Filed Vital Signs Vital Sign Reading Time Taken Comments Blood Pressure - - Pulse - - Temperature - - Respiratory Rate 2 01/03/2025 6:06 PM EDT Oxygen Saturation 96% 01/03/2025 6:08 PM EDT Inhaled Oxygen Concentration - - Weight - - Height - - Body Mass Index - - documented in this encounter OR Notes * Anesthesia Postprocedure Evaluation - Kadeem Sewell DO - 01/04/2025 6:42 AM EDT Department of Anesthesiology Post-Anesthesia Evaluation Patient Name: Lanre Whitt : 1950 Admission Date: 01/03/2025 Attending Provider: Juwan Tyson MD Date of Service: 01/04/2025 Procedure Summary Date: 01/03/25 Room / Location: [address] Main OR Anesthesia Start: 1319 Anesthesia Stop: 1815 Procedure: ROBOTIC RADICAL PROSTATECTOMY AND PELVIC LYMPH NODE DISSECTION Diagnosis: Malignant neoplasm of prostate (HCC) (Malignant neoplasm of prostate (HCC) [C61]) Surgeons: Juwan Tyson MD Responsible Provider: Froilan Dueñas DO Anesthesia Type: general ASA Status: 2 Anesthesia Type: general There were no known notable events for this encounter. Last vitals Vitals Value Taken Time BP 133/65 01/03/25 20:00 Temp 36.5 ??C (97.7 ??F) 01/03/25 20:00 Pulse 76 01/03/25 20:00 Resp 14 01/03/25 20:00 SpO2 97 % 01/03/25 20:00 Evaluation Vital signs are in the patient's normal range: Yes Respiratory function stable; airway patent: Yes Cardiovascular function and hydration status are stable: Yes Mental status recovered; patient participates in evaluation: Yes Pain control satisfactory: Yes Nausea and vomiting control is satisfactory: Yes This is an OB patient: No Quality Metrics Kadeem Sewell DO 01/04/2025 6:42 AM * Anesthesia Procedure Notes - Tracey Porras CRNA - 01/03/2025 1:43 PM EDTAssociated Order(s): Airway Management Anesthesia Procedure Note - Elective intubation Patient Name: Lanre Whitt : 1950 Patient location: OR Procedure indications: airway protection Procedure diagnosis: Anesthesia Procedure Start Time: 01/03/2025 1:39 PM Procedure End Time: 01/03/2025 1:39 PM Performed by: Resident/TEMPORARY ADMINISTRATIVE ASSISTANT DO Tracey Moe CRNA Chart Verification Airway: airway not difficult Preanesthetic Checklist monitors and equipment checked. Patient's pre-procedure mental status: awake The patient was sedated prior to procedure. Current level of sedation: general anesthesia Airway not difficult - NPO status: > 8 hours Procedure Details Intubation route: oral Intubation method: direct laryngoscopy Mac 4 Number of attempts: 1 Patient status for intubation: paralyzed Patient position: supine Preoxygenation: BVM Quality of BVM: easy Tube size: 8.0 mm Tube: standard - cuffed and cuff inflated Cricoid pressure applied Cord visualization: Grade IIb Placement confirmation method: chest rise, ETCO2 monitor and CO2 detector Breath sounds: equal bilaterally ETT to lip: 23 cm Dentition: same as baseline Complications: no complications * Anesthesia Preprocedure Evaluation - Froilan Dueñas DO - 01/02/2025 3:13 PM EDT Images from the original note were not included. Department of Anesthesiology Pre-Procedure Evaluation Patient Name: Lanre Whitt : 1950 Admission Date: (Not on file) Attending Provider: Juwan Tyson MD Date of Service: 01/02/2025 Scheduled Procedure: ROBOTIC RADICAL PROSTATECTOMY AND PELVIC LYMPH NODE DISSECTION, N/A Pre-operative Diagnosis: Malignant neoplasm of prostate (HCC) [C61] Relevant Problems No relevant active problems Allergies[1] STOP-Bang Score: 3 (12/10/2024 4:12 PM) Patient summary reviewed. Nursing notes reviewed. Pre-procedure vital signs reviewed. NPO status verified. General History of anesthetic complications - Respiratory Cardiovascular Positives: Exercise tolerance: >4 METS hypercholesterolemia Negatives: pacemaker Neuromuscular GI/Hepatic/Renal Positives: GERD (denies symptoms today) well controlled Additional Findings: Prostate cancer Urinary Continence Erectile Dysfunction Endo/MET Hem/Lymph Skel/Skin Psych Positives: anxiety depression HEENT Obstetrics Other Syndromes Physical Exam Airway Mallampati II TM distance >3 FB Neck ROM: full Cardiovascular - cardiovascular exam normal Pulmonary - pulmonary exam normal Abdominal Past Medical History: Diagnosis Date Anxiety Benign prostatic hyperplasia 02/2024 COVID-19 x1, Not hospitalized Depression Elevated PSA 02/2024 Erectile dysfunction 07/2023 Hyperlipidemia Prostate cancer (HCC) Urinary incontinence 02/2024 Past Surgical History: Procedure Laterality Date HERNIA REPAIR NASAL SEPTUM SURGERY VASECTOMY 1991 Family History Problem Relation Age of Onset Cancer Mother Cancer, Bladder Neg Hx Cancer, Kidney Neg Hx Cancer, Prostate Neg Hx Tobacco/Alcohol/Drug HX[2] Ht Readings from Last 1 Encounters: 12/25/24 1.702 m (5' 7.01 ) Wt Readings from Last 1 Encounters: 12/25/24 71.7 kg (158 lb) Body mass index is 24.12 kg/m??. White Blood Cell Count Date Value Ref Range Status 12/18/2024 8.2 4.0 - 11.0 Thou/uL Final Hemoglobin Date Value Ref Range Status 12/18/2024 13.3 13.0 - 17.7 g/dL Final Hematocrit Date Value Ref Range Status 12/18/2024 42.7 39.0 - 54.0 % Final Platelet Count Date Value Ref Range Status 12/18/2024 241 150 - 450 Thou/uL Final Sodium Date Value Ref Range Status 12/18/2024 143 136 - 145 mmol/L Final Potassium Date Value Ref Range Status 12/18/2024 4.4 3.4 - 5.3 mmol/L Final CO2 Date Value Ref Range Status 12/18/2024 26 22 - 33 mmol/L Final Chloride Date Value Ref Range Status 12/18/2024 105 98 - 107 mmol/L Final Glucose Date Value Ref Range Status 12/18/2024 83 65 - 99 mg/dL Final Comment: Fasting: <100 mg/dL, Non-Fasting: <200 mg/dL (ADA 2005) Blood Urea Nitrogen (BUN) Date Value Ref Range Status 12/18/2024 13 8 - 21 mg/dL Final Creatinine Date Value Ref Range Status 12/18/2024 0.9 0.5 - 1.3 mg/dL Final Calcium Date Value Ref Range Status 12/18/2024 9.4 8.7 - 10.5 mg/dL Final ABO/Rh Date Value Ref Range Status 12/18/2024 A NEGATIVE Final Lab Results Component Value Date ABORH A NEGATIVE 12/18/2024 Recent Results (from the past 8760 hours) ECG 12 lead Collection Time: 12/18/24 2:55 PM Result Value Status Ventricular rate 69 Final Atrial rate 69 Final P-R interval 154 Final QRS duration 122 Final Q-T interval 420 Final QTC calculation (Bazett) 450 Final P axis 18 Final R axis -8 Final T axis 8 Final Narrative Normal sinus rhythm Right bundle branch block Abnormal ECG No previous ECGs available Confirmed by MD Herb, Quentin ([id number]) on 12/25/2024 10:32:25 AM Last Vitals: Pulse: Resp: BP:No data recorded MAP: SpO2: CVP: Temp Last 24 hrs: No data recorded Current Ventilator/Noninvasive Ventilator/Oxygen Settings: Home Medications: Current Outpatient Medications Medication Instructions aspirin (ASPIRIN 81) 81 mg, Every morning atorvastatin (LIPITOR) 40 mg, Every evening buPROPion (WELLBUTRIN SR) 100 mg, 2 times daily clonazePAM (KlonoPIN) 1 MG tablet TAKE 1/2 TABLET BY MOUTH TWICE A DAY AND WHOLE TAB AT NIGHT [facility] Magnesium Citrate 1.745 GM/30ML Solution solution every morning. finasteride (PROSCAR) 5 mg, Oral, Daily FLUoxetine (PROzac) 20 MG capsule 1 capsule (20 mg total) every morning. 60 mg total dose FLUoxetine (PROzac) 40 MG capsule 1 capsule (40 mg total) every morning. 60 mg total dose mirtazapine (REMERON) 45 MG tablet Multiple Vitamins-Minerals (MULTI VITAMIN/MINERALS PO) 1 Dose daily. PANTOprazole (PROTONIX) 40 mg, Every morning traZODone (DESYREL) 100 MG tablet 1 tablet (100 mg total) nightly. In-patient Medications: Scheduled Meds: Continuous Infusions: No current facility-administered medications for this encounter. Imaging Studies: No results found. No results found. NPO Status: Anesthesia Plan ASA Score: ASA 2 Consent: The anesthetic plan and associated risks was discussed with patient. The use of blood products was discussed with patient whom consented to blood products. Anesthesia Plan: general anesthesia The risks and benefits of general anesthesia with an endotracheal tube were discussed with the patient including; sore throat, nausea,vomiting, dental injury, aspiration, and more serious complications including cardiac, respiratory and neurologic systems. The potential need for additional intravenous access and invasive blood pressure monitoring was discussed. . The plan was discussed with the following care providers: attending and TEMPORARY ADMINISTRATIVE ASSISTANT. Post-Operative Pain Management: Post-operative opioids are intended. Routine Analgesia and Antiemetics : Attending Note I personally evaluated and examined the patient prior to the intra-operative phase of care. Anderw Sotelo MD [1] No Known Allergies [2] Tobacco/Alcohol/Drug HX Tobacco Use Smoking status: Former Types: Cigarettes [...] to surgery. Take last dose on 12/26/2024. documented in this encounter Plan of Treatment Upcoming Encounters Date Type Department Care Team (Late st Contact Info) Description 01/13/2025 8:00 AM EDT Office Visit [facility] [place] [address] [facility] [address] [place] [phone] Juwan Tyson MD [address] [place] [id number] documented as of this encounter Procedures Procedure Name Priority Date/Time Associated Diagnosis Comments ANES INTUBATION Routine 01/03/2025 1:43 PM EDT documented in this encounter Results * ANES INTUBATION (01/03/2025 1:43 PM EDT) Narrative Tracey Porras CRNA - 01/03/2025 1:43 PM EDT Tracey Porras CRNA 01/03/2025 1:44 PM Anesthesia Procedure Note - Elective intubation Patient Name: Lanre Whitt : 1950 Patient location: OR Procedure indications: airway protection Procedure diagnosis: Anesthesia Procedure Start Time: 01/03/2025 1:39 PM Procedure End Time: 01/03/2025 1:39 PM Performed by: Resident/TEMPORARY ADMINISTRATIVE ASSISTANT DO Tracey Moe CRNA Chart Verification Airway: airway not difficult Preanesthetic Checklist monitors and equipment checked. Patient's pre-procedure mental status: awake The patient was sedated prior to procedure. Current level of sedation: general anesthesia Airway not difficult - NPO status: > 8 hours Procedure Details Intubation route: oral Intubation method: direct laryngoscopy Mac 4 Number of attempts: 1 Patient status for intubation: paralyzed Patient position: supine Preoxygenation: BVM Quality of BVM: easy Tube size: 8.0 mm Tube: standard - cuffed and cuff inflated Cricoid pressure applied Cord visualization: Grade IIb Placement confirmation method: chest rise, ETCO2 monitor and CO2 detector Breath sounds: equal bilaterally ETT to lip: 23 cm Dentition: same as baseline Complications: no complications Froilan Dueñas DO PA ANESTHESIA Final Result documented in this encounter Visit Diagnoses Not on filedocumented in this encounter Administered Medications Inactive Administered Medications - up to 1 most recent administrations Medication Order MAR Action Action Date Dose Rate Site lactated ringers (LR) infusion Intravenous, Continuous PRN, Starting on Mon01/03/25 at 1319, Anesthesia Intra-op New Bag 01/03/2025 1:19 PM EDT lactated ringers (LR) infusion Intravenous, Continuous PRN, Starting on Mon01/03/25 at 1336, Anesthesia Intra-op New Bag 01/03/2025 1:36 PM EDT ceFAZolin (ANCEF) 2 g in 20 mL SWFI syringe (premix) 2 g, Intravenous, Once, On Mon01/03/25 at 0930, For 1 dose, Pre-op, All antimicrobials used at [facility] require an indication. Please complete the following documentation. Surgical Prophylaxis Given 01/03/2025 5:34 PM EDT 2 g dexAMETHasone (DECADRON) 4 mg/mL injection Intravenous, As needed, Starting on Mon01/03/25 at 1435, Anesthesia Intra-op Given 01/03/2025 2:35 PM EDT 4 mg fentaNYL 100 MCG/2ML injection Intravenous, As needed, Starting on Mon01/03/25 at 1325, Anesthesia Intra-op Given 01/03/2025 2:17 PM EDT 50 mcg HYDROmorphone (DILAUDID) 2 mg/mL injection Intravenous, As needed, Starting on Mon01/03/25 at 1421, Anesthesia Intra-op Given 01/03/2025 5:12 PM EDT 0.2 mg lidocaine preservative free (XYLOCAINE-MPF) 2 % injection Intravenous, As needed, Starting on Mon01/03/25 at 1325, Anesthesia Intra-op Given 01/03/2025 1:25 PM EDT 5 mL midazolam (VERSED) 1 mg/mL injection Intravenous, As needed, Starting on Mon01/03/25 at 1321, Anesthesia Intra-op Given 01/03/2025 1:21 PM EDT 2 mg ondansetron (ZOFRAN) injection Intravenous, As needed, Starting on Mon01/03/25 at 1737, Anesthesia Intra-op Given 01/03/2025 5:37 PM EDT 4 mg propofol (diPRIvan) injection Intravenous, As needed, Starting on Mon01/03/25 at 1325, Anesthesia Intra-op Given 01/03/2025 1:25 PM EDT 200 mg rocuronium (ZEMURON) 50 mg/5mL injection Intravenous, As needed, Starting on Mon01/03/25 at 1325, Anesthesia Intra-op Given 01/03/2025 5:10 PM EDT 10 mg sugammadex (BRIDION) injection Intravenous, As needed, Starting on Mon01/03/25 at 1742, Anesthesia Intra-op Given 01/03/2025 5:42 PM EDT 200 mg documented in this encounter Care Teams First Aid Officer Relationship Specialty Start Date End Date Jarad Joseph MD [address] [place] [address] PCP - General Family Medicine 08/23/24 documented as of this encounter
[2025-01-05 18:50] VITALS: BP 143/75; PULSE 78; RESP 17; TEMP 36.6; O2SAT 98; BMI 24.9
[2025-01-05 19:14] VITALS: RESP 20
[2025-01-05 19:16] LABS: MANUAL DIFF FLAG NO
--- NOTE | 2025-01-05 19:19 | PC.NURSE ---
pt biba from home, a&ox4, respirations even and unlabored. pt reports having prostate removed on monday, reports having naranjo placed after. pt reports increased abdominal pain and poor urinary output. bladder scan on arrival 250. provider at bedside attempting to irrigate naranjo without relif. 18g placed in left wrist and medicated per mar. at bedside
[2025-01-05 19:20] LABS: Hematocrit 33.8 % (42.0-52.0); Hemoglobin 11.3 g/dl (14.0-18.0); Imm Gran Abs Auto 0.05 X10*3/uL (0.00-0.03); Imm Gran Pct Auto 0.3 % (0.0-0.4); Lymphocytes Absolute Auto 1.5 X10*3/uL (1.2-4.9); Mean Corpuscular HGB Conc 33.4 g/dl (31.0-36.0); Mean Corpuscular Hemoglobin 30.3 pg (27.0-33.0); Mean Corpuscular Volume 90.6 fL (80.0-98.0); NRBC Abs Auto 0.000 X10*3/uL (0.0-0.012); NRBC Pct Auto 0.0 /100WBC (0.0-0.2); Platelet Count 203 X10*3/uL (160-400); Red Blood Count 3.73 X10*6/uL (4.60-5.80); White Blood Count 16.9 X10*3/uL (4.8-10.8)
[2025-01-05 19:25] LABS: INTERNATIONAL NORM RATIO 1.1 (0.9-1.1); Prothrombin Time 12.6 SEC (10.9-12.4)
--- NOTE | 2025-01-05 19:26 | PC.NURSE ---
report given to Lanre ROGERS at [facility].
--- NOTE | 2025-01-05 19:27 | ED.MALEGU ---
HPI - Male Genitourinary General Chief complaint: Urogenital-Male Stated complaint: catheter issues History of Present Illness HPI Narrative: Patient is a 74-year-old male just had his prostate and move at [facility] 2 days prior. Presents today with unable to urinate having lower abdominal pain no fever no chills no chest pain or shortness breath no systemic complaints. Patient from home. Not on blood thinners. Related Data Home Medications ?Medication ?Instructions ?Recorded ?Confirmed clonazepam 1 mg tablet 0 mg PO 03/12/20 09/18/24 fluoxetine 20 mg capsule 20 mg PO QAM 03/12/20 09/18/24 fluoxetine 40 mg capsule mg PO 03/12/20 09/18/24 mirtazapine 45 mg tablet 45 mg PO BEDTIME depressive 03/12/20 09/18/24 disorder trazodone 100 mg tablet mg PO 03/12/20 09/18/24 Previous Rx's ?Medication ?Instructions ?Recorded atorvastatin 40 mg tablet 40 mg PO DAILY #90 tabs 05/13/24 tadalafil 5 mg tablet 5 mg PO DAILY sexual activity 90 08/01/24 days #90 tabs polyethylene glycol 3350 17 gram 17 g PO DAILY #100 ea 09/18/24 oral powder packet (Miralax) finasteride 5 mg tablet 5 mg PO DAILY 90 days #90 tabs 11/18/24 pantoprazole 40 mg tablet,delayed 40 mg PO DAILY #90 tabs 12/04/24 release Allergies Allergy/AdvReac Type Severity Reaction Status Date / Time No Known Allergies Allergy Verified 01/05/25 18:51 Review of Systems Review of Systems: Positive lower abdominal pain. Unable to urinate. Yes all other systems are reviewed and are negative [facility] Past Medical History Attestation statement: The following information was validated with the patient. Medical History Gastrointestinal discomfort Seborrheic keratoses Lumbago of lumbar region with sciatica Depression Mixed hyperlipidemia Surgical History History of inguinal hernia repair History of tonsillectomy Family History Family History Mother Brain cancer Father No problems noted. Social History Social History Are you a primary personal care attendant to a significant other at home: No Do you presently have visiting nurse or other home services: No Alcohol intake: current Alcohol intake frequency: a few times a week Patient Tobacco Use Status: Former Tobacco user Smoked in Last 30 Days: No Use of substances other than those prescribed or required for medical reasons: No Advance Directives: No Advance Directives Information Provided: Yes Do you have a plan to hurt others: No Plan Current occupational status: employed and retired Cognitive needs: No Hearing needs: No Vision needs: Yes Physical Exam Exam: Exam: Appearance: Alert. Oriented X3. No acute distress. Eyes: Pupils equal, round and reactive to light. ENT: Pharynx normal. Neck: Normal inspection. Neck supple. No lymph nodes noted. No crepitus CVS: Normal heart rate and rhythm. Pulses normal. Normal S1 and S2 Respiratory: No respiratory distress. Breath sounds normal. No Wheezing. No rales Abdomen: Lower abdominal pain Skin: Skin warm and dry. Normal skin color. Normal skin turgor. Extremities: No lower extremity edema. Neurovascular intact to all extremities. No Lacerations. No Rash Neuro: Oriented X 3. No motor deficit. No sensory deficit. Moving all extermities. No slurred speech Vital Signs: Vital Signs: Last Vital Signs Temp 97.9 F 01/05/25 18:50 Pulse 78 01/05/25 18:50 Resp 20 01/05/25 19:14 BP 143/75 H 01/05/25 18:50 Pulse Ox 98 01/05/25 18:50 O2 Del Method Room Air 01/05/25 18:50 BMI result Body Mass Index 24.9 Medications Administered Discontinued Medications Generic Name Dose Route Start Last Admin Trade Name Freq PRN Reason Stop Dose Admin Hydromorphone HCl 0.5 mg 01/05/25 18:59 01/05/25 19:14 Hydromorphone Hcl 0.5 Mg/0.5 Ml Syringe IVPUSH 01/05/25 19:00 0.5 mg ONCE ONE Administration Protocol Medical Decision Making Medical Decision Making MDM Narrative: Patient has over 250 cc of urine in his bladder. He has a coude catheter in place. Because he had a fresh prostate surgery done on Monday I did not feel comfortable removing the catheter. We attempted to irrigate but to no avail. I contacted my urologist here at [place] they felt patient should be transferred to [facility]. Currently complaining of pain to the low abdomen but patient aware and understands why we are transferring to [place]. Accepted the transfer. I discussed the case with the transfer center. They accepted on behalf of Dr. Trivedi. Currently in Differential Diagnosis Differential Diagnoses: The differential diagnosis associated with the presentation includes Admission/Observation Consideration of admission/observation: Escalation of care including admission/observation considered Consult Healthcare Provider Management of the patient was discussed with: [employer] (Urology, [place] transfer line) Lab Data MDM Lab Attestation statement: I reviewed the patient's lab results. 01/05/25 19:11 01/05/25 19:11 Labs: Lab Results 01/05/25 Range/Units 19:11 WBC 16.9 H (4.8-10.8) X10*3/uL RBC 3.73 L D (4.60-5.80) X10*6/uL Hgb 11.3 L (14.0-18.0) g/dl Hct 33.8 L D (42.0-52.0) % MCV 90.6 (80.0-98.0) fL MCH 30.3 (27.0-33.0) pg MCHC 33.4 (31.0-36.0) g/dl RDW 12.6 (11.0-16.0) % Plt Count 203 (160-400) X10*3/uL MPV 10.6 (9.4-12.4) fL Immature Gran % (Auto) 0.3 (0.0-0.4) % Neut % (Auto) 84.0 H (45-73) % Lymph % (Auto) 8.6 L (20-40) % [place] % (Auto) 6.8 (2-11) % Eos % (Auto) 0.0 (0-4) % Baso % (Auto) 0.3 (0-2) % Lymph # (Auto) 1.5 (1.2-4.9) X10*3/uL [place] # (Auto) 1.2 (0.1-1.2) X10*3/uL Eos # (Auto) 0.0 (0.0-0.4) X10*3/uL Baso # (Auto) 0.1 (0.0-0.2) X10*3/uL Abs Immat Gran (auto) 0.05 H (0.00-0.03) X10*3/uL Absolute Neuts (auto) 14.2 H (2.0-8.3) x10*3/uL Absolute Nucleated RBC 0.000 (0.0-0.012) X10*3/uL Nucleated RBC % (auto) 0.0 (0.0-0.2) /100WBC PT 12.6 H (10.9-12.4) SEC INR 1.1 (0.9-1.1) Independent Historian Clinical information obtained from an independent historian. History obtained from or confirmed by: Spouse External Record Review External record reviewed: Office record Chronic Conditions Status post prostatectomy 2 days ago Critical Care Time Critical Care Time Critical Care Time: Yes Total Critical Care Time: 35 Attestation: I have personally provided 35 minutes of critical care time exclusive of time spent on separately billable procedures. ?Time includes review of lab data, radiology results, discussion with consultants, and monitoring for potential decompensation. ?Interventions were performed as documented above Discharge Plan Discharge Clinical Impression: Acute urinary retention Patient Disposition: [facility] Transfer Details: Transferred to [facility] Prescriptions: No Action atorvastatin 40 mg tablet 40 mg PO DAILY Qty: 90 1RF finasteride 5 mg tablet 5 mg PO DAILY 90 Days Qty: 90 0RF pantoprazole 40 mg tablet,delayed release (DR/EC) 40 mg PO DAILY Qty: 90 1RF mirtazapine 45 mg tablet 45 mg PO BEDTIME trazodone 100 mg tablet PO fluoxetine 20 mg capsule 20 mg PO QAM fluoxetine 40 mg capsule PO clonazepam 1 mg tablet 0 mg PO tadalafil 5 mg tablet 5 mg PO DAILY 90 Days Qty: 90 1RF Rx Instructions: [id number] [facility] [id number] Member [id number] polyethylene glycol 3350 [Miralax] 17 gram powder in packet 17 g PO DAILY Qty: 100 0RF Print Language: Kyrgyz
[2025-01-05 19:32] LABS: Alanine Aminotransferase 14 U/L (0-40); Albumin Level 3.9 g/dL (3.5-5.0); Alkaline Phosphatase 52 U/L (39-117); Anion Gap 18 (12-20); Aspartate Amino Transferase 29 U/L (5-37); Blood Urea Nitrogen 10 mg/dL (9-16); Calcium 8.7 mg/dL (8.4-10.2); Carbon Dioxide 20 mmol/L (22-29); Chloride 106 mmol/L (96-108); Creatinine Clr Calc Pharmacy 77.0; Estimated Glomerular Filt Rate > 60; Lipase 13 U/L (8-78); Potassium 4.0 mmol/L (3.3-5.1); Sodium 140 mmol/L (135-145); Total Protein 7.1 g/dL (6.5-8.0)
--- OUTSIDE RECORDS SUMMARY | 2025-01-05 19:33 | XMS_ITS | Encounter Summary ---
Author Organization [facility] Address [address] [place] [address] Care Team Providers Care Professor Of Languages Name Role Phone Jarad Joseph MD Primary Care Provider [phone] Encounter Details Date Type Department Care Team ([facility] Contact Info) Description 08/01/2024 Scanned Document [facility] Urologic Surgery [address] [phone] Urology, Scan Social History Tobacco Use Types Packs/Day Years Used Date Smoking Tobacco: Never Assessed Sex and Gender Information Value Date Recorded Sex Assigned at Male 10/14/2024 10:25 AM EDT Legal Sex Male 6:34 PM EST Gender Identity Agender 10/14/2024 10:25 AM EDT Sexual Orientation Heterosexual (straight) 10/14 10:25 AM EDT documented as of this encounter Plan of Treatment Upcoming Encounters Date Type Department Care Team ([facility] Contact Info) Description 01/13/2025 8:00 AM EDT Office Visit [facility] Urologic Surgery [address] [place] [phone] Juwan Tyson MD [address] [place] [phone] documented as of this encounter Visit Diagnoses Not on filedocumented in this encounter Care Teams Professor Of Languages Relationship Specialty Start Date End Date Jarad Joseph MD [address] [place] [address] PCP - General Family Medicine 08/23/24 documented as of this encounter
--- OUTSIDE RECORDS SUMMARY | 2025-01-05 19:33 | XMS_ITS | Encounter Summary ---
Author Organization [facility] Address [address] [place] [address] Care Team Providers Care Paper Folder Name Role Phone Jarad Joseph MD Primary Care Provider [phone] Encounter Details Date Type Department Care Team (Latest Contact Info) Description 01/03/2025 Travel Social History Tobacco Use Types Packs/Day Years Used Date Smoking Tobacco: Former Cigarettes Smokeless Tobacco: Never Alcohol Use Standard Drinks/Week Comments Yes 3 (1 standard drink = 0.6 oz pur e alcohol) 3 drinks a week [facility] Utilities Answer Date Recorded In the past 12 months has th [employer], gas, oil, or water [employer] threatened to shut off services in your [...] any time in the past 12 m [facility], were you homeless or living in a halfway (including now)? No 01/04/2025 Sex and Gender [...] Description 01/13/2025 8:00 AM EDT Office Visit [facility] Urologic Surgery [place] [address] [place] [phone] Juwan Tyson MD [address] [address] documented as of this encounter Visit Diagnoses Not on filedocumented in this encounter Care Teams Paper Folder Relationship Specialty Start Date End Date Jarad Joseph MD [address] [place] [address] PCP - General Family Medicine 08/23/24 documented as of this encounter
--- OUTSIDE RECORDS SUMMARY | 2025-01-05 19:33 | XMS_ITS | Encounter Summary ---
Author Organization [facility] Address [address] [place] [address] Care Team Providers Care Senior Tax Analyst Name Role Phone Jarad Joseph MD Primary Care Provider [phone] Encounter Details Date Type Department Care Team (Late st Contact Info) Description 12/18/2024 Scanned Document [facility] in [address] [place] [phone] Juwan Tyson MD [address] [address] Social History Tobacco Use Types Packs/Day Years Used Date Smoking Tobacco: Former Cigarettes Smokeless Tobacco: Never Alcohol Use Standard Drinks/Week Comments Yes 3 (1 standard drink = 0.6 oz pur e alcohol) 3 drinks a week AUDIT-C Answer Date Recorded Q1: How often do you have a drink containing alc ohol? 2-3 times a week 12/10/2024 Q2: How many drinks containi ng alcohol do you have on a typical day when you are drinking? 1 or 2 12/10/2024 Q3: How often do you have si x or more drinks on one occasion? Never 12/10/2024 Sex and Gender Information Value Date Recorded Sex Assigned at Male 10/14/2024 10:25 AM EDT Legal Sex Male 6:34 PM EST Gender Identity Agender 10/14/2024 10:25 AM EDT Sexual Orientation Heterosexual (straight) 10/14 10:25 AM EDT documented as of this encounter Plan of Treatment Upcoming Encounters Date Type Department Care Team (Late st Contact Info) Description 01/13/2025 8:00 AM EDT Office Visit [facility] Urologic Surgery [place] [address] [place] [address] Juwan Tyson MD [address] [facility] [address] [place] [address] documented as of this encounter Visit Diagnoses Not on filedocumented in this encounter Care Teams Senior Tax Analyst Relationship Specialty Start Date End Date Jarad Joseph MD [address] [place] [address] PCP - General Family Medicine 08/23/24 documented as of this encounter
--- OUTSIDE RECORDS SUMMARY | 2025-01-05 19:33 | XMS_ITS ---
Author Name [facility] Organization Unknown Results Test Name/Text Value Interpretation Date Range Source BUN/Creat SerPl 14.0 Ratio 01/04/2025 10 - 25 HH CCT Potassium SerPl-sCnc 4.0 mmol/L 01/04/2025 3.4 - 5 .3 [facility]CT Anion Gap Bld-sCnc 9.0 01/04/2025 7 - 17 HHCCT CO2 SerPl-sCnc 26.0 mmol/L 01/04/2025 22 - 33 HH CCT Sodium SerPl-sCnc 138.0 mmol/L 01/04/2025 136 - 14 5 HHCCT Calcium SerPl-mCnc 8.5 mg/dL Below low normal 01/04/2025 8.7 - 10.5 H[facility]CT Chloride SerPl-sCnc 103.0 mmol/L 01/04/2025 98 - 1 07 HHCCT GFR/BSA.pred SerPlBld ABF-FWL-BdRQbn >90.0 01/04/2025 59 - HHCCT Glucose SerPl-mCnc 101.0 mg/dL Above high normal 01/04/2025 65 - 99 HHCCT Creat SerPl-mCnc 0.8 mg/dL 01/04/2025 0.5 - 1.3 HH CCT BUN SerPl-mCnc 11.0 mg/dL 01/04/2025 8 - [address] Creat Fld-mCnc 1.6 mg/dL 01/04/2025 [facility]CC T Fluid Source Abdominal Cavity 01/04/2025 H[facility]CT Est. average glucose Bld gHb Est-mCnc 114.0 mg/dL 12/19/2024 H[facility]CT Hgb A1c MFr Bld 5.6 % 12/19/2024 - 5.[address] BUN SerPl-mCnc 13.0 mg/dL 12/19/2024 8 - [address] Calcium SerPl-mCnc 9.4 mg/dL 12/19/2024 8.7 - 10.5 H[facility]CT Potassium SerPl-sCnc 4.4 mmol/L 12/19/2024 3.4 - 5 .3 HHCCT GFR/BSA.pred SerPlBld PNB-JPM-RcYGxj >90.0 12/19/2024 59 - HHCCT Sodium SerPl-sCnc 143.0 mmol/L 12/19/2024 136 - 14 5 HHCCT Creat SerPl-mCnc 0.9 mg/dL 12/19/2024 0.5 - 1.3 HH CCT Anion Gap Bld-sCnc 12.0 12/19/2024 7 - 17 HHCCT Glucose SerPl-mCnc 83.0 mg/dL 12/19/2024 65 - 99 HHCCT CO2 SerPl-sCnc 26.0 mmol/L 12/19/2024 22 - 33 HH CCT BUN/Creat SerPl 14.0 Ratio 12/19/2024 10 - 25 HH CCT Chloride SerPl-sCnc 105.0 mmol/L 12/19/2024 98 - 1 07 H[facility]CT nRBC num Bld Auto 0.02 Thou/uL 12/19/2024 0 - 0.02 HHCCT Hct VFr Bld Auto 42.7 % 12/19/2024 39 - 54 HH CCT Eosinophil/leuk NFr Bld Auto 1.9 % 12/19/2024 H[facility]CT Imm Granulocytes/leuk NFr Bld Auto 0.5 % 12/19/2024 H[facility]CT Lymphocytes/leuk NFr Bld Auto 30.9 % 12/19/2024 [facility]CT nRBC/100 WBC Bld Auto-Rto 0.2 /100 WBC Above high normal 12/19/2024 0 - 0.1 HHCCT MCV RBC Auto 94.0 fL 12/19/2024 80 - 100 HHCCT MCHC RBC Auto-mCnc 31.1 g/dL 12/19/2024 30 - 36 H[facility]CT Imm Granulocytes num Bld Auto 0.04 Thou/uL 12/19/2024 0 - 0.1 H[facility]CT Platelet num Bld Auto 241.0 Thou/uL 12/19/2024 150 - 450 H[facility]CT Monocytes/leuk NFr Bld Auto 9.0 % 12/19/2024 H[facility]CT Monocytes num Bld Auto 0.74 Thou/uL 12/19/2024 0.2 - 1.5 HHCCT Hgb Bld-mCnc 13.3 g/dL 12/19/2024 13 - 17.7 HHCCT Eosinophil num Bld Auto 0.16 Thou/uL 12/19/2024 0 - 0.7 HHCCT RDW RBC Auto-Rto 12.7 % 12/19/2024 11.5 - 14.5 HHCCT Basophils/leuk NFr Bld Auto 1.2 % 12/19/2024 HHCCT Neutrophils num Bld Auto 4.65 Thou/uL 12/19/2024 2 - 7.5 HHCCT Basophils num Bld Auto 0.1 Thou/uL 12/19/2024 0 - 0.2 HHCCT WBC num Bld Auto 8.2 Thou/uL 12/19/2024 4 - 11 H[facility]CT RBC num Bld Auto 4.55 Mil/uL 12/19/2024 4.5 - 6.2 H[facility]CT Neutrophils/leuk NFr Bld Auto 56.5 % 12/19/2024 HHCCT PMV Bld Auto 10.9 fL 12/19/2024 7.5 - 12.5 HHCCT Lymphocytes num Bld Auto 2.54 Thou/uL 12/19/2024 1.5 - 4.5 HHCCT MCH RBC Qn Auto 29.2 pg 12/19/2024 27 - [address] History of Medication Use Medication Directions Dispensed Refills Start Date End Date Stat us mirtazapine (REMERON) 45 MG tablet 11/12/2024 active atorvastatin (LIPITOR) 40 MG tablet Take 1 tablet (40 mg total) by mouth every evening. 10/20/2024 active traZODone (DESYREL) 100 MG tablet 10/15/2024 active traZODone (DESYREL) 100 MG tablet 1 tablet (100 mg total) nightly. 10/15/2024 active FLUoxetine (PROzac) 20 MG capsule TAKE 1 CAPSULE BY MOUTH ONCE A DAY. TAKE WITH 40 MG PROZAC EVERY MORNING. 09/16/2024 active FLUoxetine (PROzac) 20 MG capsule 1 capsule (20 mg total) every morning. 60 mg total dose 09/16/2024 active [facility] Magnesium Citrate 1.745 GM/30ML Solution solution TAKE 10 ML BY MOUTH 3 TIMES PER DAY FOR 10 DAYS 09/11/2024 active finasteride (PROSCAR) 5 MG tablet Take 1 tablet (5 mg total) by mouth. 08/19/2024 active aspirin (Aspirin 81) 81 MG chewable tablet Chew 1 tablet (81 mg total). active buPROPion (Wellbutrin SR) 100 MG 12 hr tablet Take 1 tablet (100 mg total) by mouth 2 times a day. active clonazePAM (KlonoPIN) 1 MG tablet TAKE 1/2 TABLET BY MOUTH TWICE A DAY AND WHOLE TAB AT NIGHT active Cyanocobalamin (VITAMIN B-12 PO) Vitamin B12 active FLUoxetine (PROzac) 40 MG capsule 1 capsule in the morning Orally Once a day active FLUoxetine (PROzac) 40 MG capsule 1 capsule (40 mg total) every morning. 60 mg total dose active lovastatin (MEVACOR) 20 MG tablet 1 tablet with a meal Orally Once a day active mirtazapine (REMERON) 30 MG tablet 1 tablet before bedtime in the evening Orally Once a day active Multiple Vitamins-Minerals (MULTI VITAMIN/MINERALS PO) 1 Dose daily. a ctive PANTOprazole (PROTONIX) 40 MG EC tablet Take 1 tablet (40 mg total) by mouth. active Problems Problem Status Onset Date Problem Type Date of Resolution Source Other [facility] En[facility] Type Encounter Reason Primary Diagnosis Location Date Inpatient Malignant neoplasm o f prostate Malignant neoplasm of prostate [facility] 01/03/2025 Ambulatory Other hyperlipidemia Other hyperlipidemia [facility] 12/25/2024 Ambulatory Encounter for other preprocedural examination Encounter for other preprocedural examination [facility] 12/18/2024 Ambulatory Encounter for other preprocedural examination Encounter for other preprocedural examination [facility] 12/18/2024 Ambulatory Elevated prostate specific antigen (PSA) Elevated prostate specific antigen (PSA) [facility] 11/22/2024 Ambulatory [facility] 11/20/2024 Ambulatory Malignant neoplasm o f prostate Malignant neoplasm of prostate [facility] 11/20/2024 Ambulatory Malignant neoplasm o f prostate Malignant neoplasm of prostate [facility] 10/16/2024 Care Team Organization Name Specialty Phone Email Start Date End Da te [place] [facility] 10/16/2024 [place] [employer] 10/15/2024 [place] [facility] 2024
--- OUTSIDE RECORDS SUMMARY | 2025-01-05 19:33 | XMS_ITS | Encounter Summary ---
Author Organization [facility] Address [address] [place] [address] Care Team Providers Care Head Golf Professional Name Role Phone Jarad Joseph MD Primary Care Provider [phone] Reason for Visit * Reason Onset Date Comments Appointment 2024 Encounter Details Date Type Department Care Team (Late Contact Info) Description [address] [phone] System, Provider Not In Appointment Social History Tobacco Use Types Packs/Day Years [...] Encounters Date Type Department Care Team (Late Contact Info) Description 01/13/2025 8:00 AM EDT Office Visit [facility] Urologic Surgery [address] [place] [phone] Juwan Tyson MD [address] [address] documented as of this encounter Visit Diagnoses Not on filedocumented in this encounter Care Teams Head Golf Professional Relationship Specialty Start Date End Date Jarad Joseph MD [address] [place] [address] PCP - General Family Medicine 08/23/24 documented as of this encounter
--- OUTSIDE RECORDS SUMMARY | 2025-01-05 19:33 | XMS_ITS | Clinical Summary ---
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 60 mg total dose Active [facility] Magnesium Citrate 1.745 GM/30ML Solution solution every morning. 09/12/19 25 Active PANTOprazole (PROTONIX) 40 MG EC tablet Take 1 tablet (40 mg total) by mouth every morning. Active traZODone (DESYREL) 100 MG tablet 1 tablet (100 mg total) nightly. 10/16/19 25 Active FLUoxetine (PROzac) 20 MG capsule 1 capsule (20 mg total) every morning. 60 mg total dose 09/17/19 25 Active aspirin (Aspirin 81) 81 MG chewable tablet Chew 1 tablet (81 mg total) every morning. Active Multiple Vitamins-[employer] als (MULTI VITAMIN/MINERA LS PO) 1 Dose daily. Active buPROPion (Wellbutrin SR) 100 MG 12 hr tablet Take 1 tablet (100 mg total) by mouth 2 times a day. Active finasteride (PROSCAR) 5 MG tabletIndicati ons:Benign prostatic hyperplasia with lower urinary tract symptoms, symptom details unspecified Take 1 tablet (5 mg total) by mouth daily. 30 tablet 11 11/22/19 25 Active Additional Information Patient taking differently:5 mg OralEvery morning, Reason: Other, Reported on 01/03/2025 atorvastatin (LIPITOR) 40 MG tablet Take 1 tablet (40 mg total) by mouth every evening. 10/21/19 25 Active mirtazapine (REMERON) 45 MG tablet 11/13/19 25 Active sulfamethoxazo le-trimethopri m (BACTRIM DS,SEPTRA DS) 800-160 MG per tabletIndicati ons:Prostate cancer (HCC) Take 1 tablet by mouth 2 (two) times a day. Begin taking these starting the day before catheter removal. Take the day before, day of, and day after your catheter is removed. 6 tablet 01/05/20 25 025 Active oxyCODONE (ROXICODONE) 5 MG immediate release tabletIndicati ons:Prostate cancer (HCC) Take 1 tablet (5 mg total) by mouth every 4 (four) hours as needed for severe pain. Max Daily Amount: 30 mg 8 tablet 01/05/20 25 Active polyethylene glycol (miraLAx) 17 g packetIndicati ons:Prostate cancer (HCC) Take 1 packet (17 g total) by mouth daily. 30 packet 01/05/20 25 025 Active naloxone (NARCAN) 4 mg/0.1 mL Liquid nasal spray deviceIndicati ons:Prostate cancer (HCC) As needed for opioid overdose. Laurel contents (4mg) into one nostril once. May repeat every 2 to 3 minutes in alternating nostrils. Call 911 immediately after use. 1 each 01/06/20 25 Active finasteride (PROSCAR) 5 MG tablet Take 1 tablet (5 mg total) by mouth. 08/20/19 25 025 Discontinued(D uplicate Prescription - No E-Cancel/No AVS) lovastatin (MEVACOR) 20 MG tablet 1 tablet (20 mg total) every evening. 025 Discontinued(T herapy completed) mirtazapine (REMERON) 30 MG tablet 1 tablet before bedtime in the evening Orally Once a day 025 Discontinued(D ose adjustment) Cyanocobalamin (VITAMIN B-12 PO) Vitamin B12 025 Discontinued(T herapy completed) Active Problems Problem Noted Date Diagnosed Date Prostate cancer 01/03/2025 Gastroesophageal reflux disease without esophagi tis 12/18/2024 Assessment & Plan (12/18/2024 4:06 PM EDT): Well-controlled and managed with medication. Continue current medication regimen as prescribed. Follow up with provider as directed Insomnia 12/18/2024 Assessment & Plan (12/18/2024 4:06 PM EDT): See above Anxiety and depression 12/18/2024 Assessment & Plan (12/18/2024 4:10 PM EDT): Maintained on fluoxetine, mirtazapine, trazodone, bupropion, and clonazepam. Patient denies suicidal or homicidal ideation. Continue current medication regimen as prescribed. Patient to follow up with provider as previously directed. Constipation 12/18/2024 Assessment & Plan (12/18/2024 4:10 PM EDT): Managed with magnesium citrate daily. Continue with medication as prescribed. Follow up with provider as directed Other hyperlipidemia 12/18/2024 Assessment & Plan (12/18/2024 4:11 PM EDT): Compliant with statin therapy. Continue current medication regimen as prescribed. Follow up with provider as directed Benign prostatic hyperplasia with lower urinary tract symptoms 12/18/2024 Assessment & Plan (12/18/2024 4:12 PM EDT): Managed with finasteride. Continue with medication as prescribed. Follow up with provider as directed Marijuana use 12/18/2024 Assessment & Plan (12/18/2024 4:12 PM EDT): Discussed marijuana cessation at least 7 days prior to surgery date. Discussed increased risks of marijuana use in the perioperative period including, but not limited to, heart attack, stroke, or . Encounters Date Type Department Care Team Description 01/03/2025 1:19 PM EDT Anesthesia Event [facility] [address] [place] [address] Froilan Gaines DO Palaniappan, Dhamodaran, MD 01/03/2025 11:30 AM EDT - 01/03/2025 3:30 PM EDT Surgery [facility] [address] [place] [address] Juwan Tyson MD ROBOTIC RADICAL PROSTATECTOMY AND PELVIC LYMPH NODE DISSECTION 01/03/2025 9:18 AM EDT - 01/05/2025 11:47 AM EDT Hospital Encounter [facility] BLISS 8 [address] [place] [address] Juwan Tyson MD Prostate cancer (HCC) (Primary Dx) Discharge Disposition: Home or Self Care 01/03/2025 Travel 12/25/2024 8:15 AM EDT Office Visit [facility] Department of Cardiology [address] 1[address] [place] [phone] Lisa Al MD Other hyperlipidemia (Primary Dx); Preoperative cardiovascular examination 12/23/2024 Travel 12/19/2024 Documentation [facility] [place] [address] [facility] [address] [place] [phone] Juwan Tyson MD 12/18/2024 2:39 PM EDT - 12/18/2024 11:59 PM EDT Hospital Encounter OP SPECIMEN LAB [address] [place] [phone] Natalia Swanson, DENTIST Discharge Disposition: Home or Self Care 12/18/2024 2:30 PM EDT Pre-Admission Testing [facility] in [address] [place] [phone] Natalia Swanson, DENTIST Preop examination (Primary Dx); Preop cardiovascular exam; Malignant neoplasm of prostate (HCC); Gastroesophageal reflux disease without esophagitis; Insomnia, unspecified type; Anxiety and depression ; Constipation, unspecified constipation type; Other hyperlipidemia ; Benign prostatic hyperplasia with lower urinary tract symptoms, symptom details unspecified; Marijuana use 12/18/2024 Orders Only HH LAB INPATIENT [address] [place] [address] Yuri Venegas MD 12/18/2024 Scanned Document [facility] in [place] [address] [facility] [address] [place] [phone] Juwan Tyson MD 12/18/2024 Travel 12/18/2024 Telephone [facility] [place] [address] [facility] [address] [place] [phone] Juwan Tyson MD 12/10/2024 Travel 11/26/2024 Orders Only HH LAB INPATIENT [address] [place] [address] ProviderYuri MD 11/22/2024 8:49 AM EDT - 11/22/2024 11:59 PM EDT Hospital Encounter HH OP SPECIMEN LAB [address] [place] [address] Juwan Tyson MD Discharge Disposition: Home or Self Care 11/21/2024 Orders Only [facility] [address] [facility] [address] [place] [phone] Juwan Tyson MD Benign prostatic hyperplasia with lower urinary tract symptoms, symptom details unspecified (Primary Dx) 11/21/2024 Telephone [facility] [place] [address] [facility] [address] [place] [phone] Juwan Tyson MD 11/20/2024 2:01 PM EDT - 11/20/2024 11:59 PM EDT Hospital Encounter [facility] Radiology [address] [place] [phone] Juwan Tyson MD Discharge Disposition: Home or Self Care 11/20/2024 2:00 PM EDT Hospital Encounter [facility] Radiology [address] [place] [phone] Juwan Tyson MD Prostate cancer (HCC) Discharge Disposition: Home or Self Care 11/20/2024 Telephone [facility] [address] [facility] [address] [place] [phone] Juwan Tyson MD 11/20/2024 Travel 11/20/2024 Telephone [facility] [address] [place] [address] Juwan Tyson MD 11/12/2024 Documentation [facility] [address] [place] [address] Juwan Tyson MD 10/24/2024 Telephone [facility] [address] [place] [address] Juwan Tyson MD 10/21/2024 Telephone [facility] [address] [place] [address] [address] [place] [address] Juwan Tyson MD Other 10/16/2024 2:45 PM EDT Consult [address] [place] [address] [place] [phone] Juwan Tyson MD Prostate cancer (HCC) (Primary Dx) 10/16/2024 Travel 10/15/2024 Orders Only [facility] [address] [place] [address] Kadeem Barber MD 10/15/2024 Telephone [facility] [address] [place] [address] Juwan Tyson MD Other (Records ) from Last 3 Months Family History Medical History Relation Name Comments Cancer Mother Kim Stanley Cancer, Bladder Neg Hx Cancer, Kidney Neg Hx Cancer, Prostate Neg Hx Relation Name Status Comments Mother Kim Stanley Alive Social History Tobacco Use Types Packs/Day Years Used Date Smoking Tobacco: Former Cigarettes Smokeless Tobacco: Never Alcohol Use Standard Drinks/Week Comments Yes 3 (1 standard drink = 0.6 oz pur e alcohol) 3 drinks a week [facility] Utilities Answer Date Recorded In the past 12 months has [employer], gas, oil, or water company threatened to [...] any time in the past 12 m cox branson, were you homeless or living in a jail (including now)? No 01/04/2025 Sex and Gender Information Value Date Recorded Sex Assigned at Male 10/14/2024 10:25 AM EDT Legal Sex Male 6:34 PM EST Gender Identity Agender 10/14/2024 10:25 AM EDT Sexual Orientation Heterosexual (straight) 10/14 10:25 AM EDT Last Filed Vital Signs Vital Sign Reading [...] Mass Index 24.86 01/03/2025 9:35 AM EDT Plan of Treatment Upcoming Encounters Date Type Department Care Team (Late st Contact Info) Description 01/13/2025 8:00 AM EDT Office Visit [facility] [place] [address] [facility] [address] [place] [phone] Juwan Tyson MD [address] [place] [address] Health Maintenance Due Date Last Done Comments Advance Care Planning 1950 Hepatitis C Virus Screening 1950 COVID-19 Vaccine (#1) 1957 DTaP/Tdap/Td Vaccines (1 - Tdap) 08/24/1971 Pneumococcal Vaccines 50+ (1 of 2 - PCV) 08/24/1971 Zoster (Shingles) Vaccine (1 of 2) 08/24/1971 Colonoscopy 1997 Abdominal Aortic Aneurysm (A AA) Screening 2017 DXA Bone Density (Females,Ag es 65 and older) 2017 Influenza Vaccine 11/22/2024 RSV Vaccine 60 years and old er and Patients (1 - 1-dose 75+ series) 08/24/2027 Hepatitis B Vaccines Aged Out No long er eligible based on patient's age to complete this topic Procedures Procedure Name Priority Date/Time Associated Diagnosis Comments BASIC METABOLIC PANEL Routine 01/04/2025 8:28 AM EDT CREATININE, BODY FLUID Routine 01/04/2025 3:44 AM EDT ANES INTUBATION Routine 01/03/2025 1:43 PM EDT ECG 12-LEAD Routine 12/25/2024 8:40 AM EDT Other hyperlipidemia HX OUTSIDE ORDER Routine 12/18/2024 8:04 PM EDT ECG 12-LEAD Routine 12/18/2024 2:55 PM EDT Preop examination TYPE AND SCREEN Routine 12/18/2024 2:39 PM EDT Preop cardiovascular exam HEMOGLOBIN A1C WITH ESTIMATED AVERAGE GLUCOSE Routine 12/18/2024 2:39 PM EDT COMPLETE BLOOD COUNT, WITH DIFFERENTIAL Routine 12/18/2024 2:39 PM EDT BASIC METABOLIC PANEL Routine 12/18/2024 2:39 PM EDT HX OUTSIDE ORDER Routine 11/25/2024 12:0 3 AM EDT PATHOLOGY REPORT Routine 11/22/2024 12:0 0 AM EDT PET/CT GA68 PSMA SKULL BASE TO MID-THIGH - INITIAL TREATMENT Routine 11/20/2024 3:54 PM EDT Prostate cancer (HCC) from Last 3 Months Results * (ABNORMAL) Basic Metabolic Panel (01/04/2025 8:28 AM EDT) Only the most recent of2 resultswithin the time period is included. Glucose 101(H) 65 - 99 mg/dL 01/04/2025 9:19 AM [facility] Comment:Fasting: <100 mg/dL, Non-Fasting: <200 mg/dL (ADA 2005) Blood Urea Nitrogen (BUN) 11 8 - 21 mg/dL 01/04/2025 9:19 AM [facility] Creatinine 0.8 0.5 - 1.3 mg/dL 01/04/2025 9:19 AM [facility] eGFR >90 >59 01/04/2025 9:19 AM [facility] Comment:CKD-EPI (2020) in mL /min/1.73 sq meters. Sodium 138 136 - 145 mmol/L 01/04/2025 9:19 AM [facility] Potassium 4.0 3.4 - 5.3 mmol/L 01/04/2025 9:19 AM [facility] Chloride 103 98 - 107 mmol/L 01/04/2025 9:19 AM [facility] CO2 26 22 - 33 mmol/L 01/04/2025 9:19 AM EDT [facility] Anion Gap 9 7 - 17 01/04/2025 9:19 AM EDT [facility] Calcium 8.5(L) 8.7 - 10.5 mg/dL 01/04/2025 9:19 AM EDT [facility] BUN/Creatinine Ratio 14 10.0 - 25.0 Ratio 01/04/2025 9:19 AM EDT [facility] Blood Blood specimen / Unknown 01/04/2025 8:28 AM EDT 01/04/2025 8:47 AM EDT Juwan Tyson MD LAB BLOOD ORDERABLES Fin al Result Performing Organization Address [facility] [place] [address], [place] [address] * Creatinine, Body Fluid: ESTRELLITA drain LEFT Post Op day #1 (01/04/2025 3:44 AM EDT) Creatinine, Body Fluid 1.6 mg/dL 01/04/2025 4:16 AM EDT [facility] Comment:The reference interv al(s) and other method performance specifications are unavailable for this body fluid. Comparison of this result with the concentration in the blood, serum, or plasma is recommended. FLUID SOURCE Abdominal Cavity 01/04/2025 3:21 AM EDT [facility] Comment:Fluid, Peritoneal Fluid, Peritoneal (Abdominal Cavity) 01/04/2025 3:44 AM EDT 01/04/2025 3:51 AM EDT Juwan Tyson MD BODY FLUIDS AND STOOLS O RDERABLES Final Result Performing Organization Address [facility] [place] [address], [place] [address] * ANES INTUBATION (01/03/2025 1:43 PM EDT) Narrative Tracey Porras CRNA - 01/03/2025 1:43 PM EDT Tracey Porras CRNA 01/03/2025 1:44 PM Anesthesia Procedure Note - Elective intubation Patient Name: Lanre [place] : 1950 Patient location: [place] Procedure indications: airway protection Procedure diagnosis: Anesthesia Procedure Start Time: 01/03/2025 1:39 PM Procedure End Time: 01/03/2025 1:39 PM Performed by: Resident/ENAMEL DRIER DO Tracey Moe CRNA Chart Verification Airway: [...] baseline Complications: no complications Froilan Dueñas DO OR ANESTHESIA Final Result * ECG 12 lead (12/25/2024 8:40 AM EDT) Only the most recent of2 resultswithin the time period is included. 12/25/2024 8:40 AM EDT Lisa Al MD ECG ORDERABLES Final Result * OUTSIDE ORDER (12/18/2024 8:04 PM EDT) Only the most recent of2 resultswithin the time period is included. External Provider HX AMB PROCEDURES Final Res ult * Hemoglobin A1C with Estimated Average Glucose (12/18/2024 2:39 PM EDT) Hemoglobin A1C 5.6 <5.7 % 12/18/2024 10:06 PM EDT [facility] Comment: A1c% Interpretation 5.7 - 6.0 Increase risk of diabetes 6.1 - 6.4 Higher risk of diabetes > or = 6.5 Consistent with diabetes Diabetes Care, 33(Supp 1):S1-S61, 2010 Estimated Average Glucose 114 mg/dL 12/18/2024 10:06 PM EDT [facility] Blood specimen / Unknown 12/18/2024 2:39 PM EDT 12/18/2024 8:44 PM EDT us Natalia Swanson DENTIST LAB BLOOD ORDERABLES Final Res ult [address] [address], [address] [address] * (ABNORMAL) Complete Blood Count, with Differential (12/18/2024 2:39 PM EDT) White Blood Cell Count 8.2 4.0 - 11.0 Thou/uL 12/18/2024 9:11 PM [facility] Platelet Count 241 150 - 450 Thou/uL 12/18/2024 9:11 PM [facility] Hemoglobin 13.3 13.0 - 17.7 g/dL 12/18/2024 9:11 PM [facility] Hematocrit 42.7 39.0 - 54.0 % 12/18/2024 9:11 PM [facility] Red Blood Cell Count 4.55 4.50 - 6.20 Mil/uL 12/18/2024 9:11 PM [facility] MCV 94 80 - 100 fL 12/18/2024 9:11 PM [facility] MCH 29.2 27.0 - 31.0 pg 12/18/2024 9:11 PM [facility] MCHC 31.1 30.0 - 36.0 g/dL 12/18/2024 9:11 PM [facility] RDW 12.7 11.5 - 14.5 % 12/18/2024 9:11 PM [facility] MPV 10.9 7.5 - 12.5 fL 12/18/2024 9:11 PM [facility] nRBC 0.2(H) 0.0 - 0.1 /100 WBC 12/18/2024 9:11 PM [facility] nRBC, Absolute 0.02 0.00 - 0.02 Thou/uL 12/18/2024 9:11 PM EDT [facility] Neutrophils Auto 56.5 % 12/19/19 9:11 PM EDT [facility] Immature Granulocytes 0.5 % 12/18/2024 9:11 PM EDT [facility] Lymphocytes Auto 30.9 % 12/19/19 9:11 PM EDT [facility] Monocytes Auto 9.0 % 12/18/2024 9:11 PM EDT [facility] Eosinophils Auto 1.9 % 12/19/19 9:11 PM EDT [facility] Basophils Auto 1.2 % 12/18/2024 9:11 PM EDT [facility] Abs Neutrophils Auto 4.65 2.00 - 7.50 Thou/uL 12/18/2024 9:11 PM EDT [facility] Abs Immature Granulocytes 0.04 0.00 - 0.10 Thou/uL 12/18/2024 9:11 PM EDT [facility] Abs Lymphocytes Auto 2.54 1.50 - 4.50 Thou/uL 12/18/2024 9:11 PM EDT [facility] Abs Monocytes Auto 0.74 0.20 - 1.50 Thou/uL 12/18/2024 9:11 PM EDT [facility] Abs Eosinophils Auto 0.16 0.00 - 0.70 Thou/uL 12/18/2024 9:11 PM EDT [facility] Abs Basophils Auto 0.10 0.00 - 0.20 Thou/uL 12/18/2024 9:11 PM EDT [facility] Blood specimen / Unknown 12/18/2024 2:39 PM EDT 12/18/2024 8:44 PM EDT us Natalia Swanson DENTIST LAB BLOOD ORDERABLES Final Res ult [address] [address], [place] [address] * Type and Screen (12/18/2024 2:39 PM EDT) ABO/Rh A NEGATIVE 12/18/2024 11:21 PM EDT [facility] Antibody Screen NEGATIVE 12/18/2024 11:21 PM EDT [facility] Specimen Expiration 12/21/2024 12/18/2024 11:21 PM EDT [facility] Blood Bank Comment Second Sample needed for Blood Transfusion 12/18/2024 11:21 PM EDT [facility] Blood Blood specimen / Unknown 12/18/2024 2:39 PM EDT 12/18/2024 9:29 PM EDT us Santhosh Madden MD BLOOD BANK TEST ORDERABLES Fi nal Result [address] [address], [address] [address] * Pathology (11/22/2024 12:00 AM EDT) Report [facility] [id number] CLIA ID [id number] [address] [place] [phone] Surgical Pathology Report PATIENT NAME: LUCIANO STANLEY [facility] REC NUMBER: [id number] (AGE): 1950 (Age: 74) SPECIMEN NUMBER: [id number] DATE OBTAINED: 11/22/2024 DIAGNOSIS OUTSIDE SLIDES, [facility], REF# [id number]: A. PROSTATE, LEFT BASE LATERAL; CORE BIOPSY: PROSTATIC ADENOCARCINOMA, ACINAR TYPE, BJ SCORE 4+3=7, GRADE GROUP 3, (70% FUSED/POORLY FORMED AND CRIBRIFORM GLANDS), MEASURING 6 MM, REPRESENTING 35% OF SUBMITTED PROSTATE TISSUE. B. PROSTATE, LEFT BASE MEDIAL; CORE BIOPSY: ATYPICAL SMALL GLANDS. C. PROSTATE, LEFT MIID LATERAL; CORE BIOPSY: PROSTATIC ADENOCARCINOMA, ACINAR TYPE, BJ SCORE 3+3=6, GRADE GROUP 1, MEASURING 1.5 MM, REPRESENTING 8% OF SUBMITTED PROSTATE TISSUE. D. PROSTATE, LEFT MID MEDIAL; CORE BIOPSY: PROSTATIC ADENOCARCINOMA, ACINAR TYPE, BJ SCORE 3+4=7, GRADE GROUP 2, (15% FUSED/POORLY FORMED AND CRIBRIFORM GLANDS), MEASURING 3 MM, REPRESENTING 20% OF SUBMITTED PROSTATE TISSUE. E. PROSTATE, LEFT APEX LATERAL; CORE BIOPSY: BENIGN PROSTATIC TISSUE. F. PROSTATE, LEFT APEX MEDIAL; CORE BIOPSY: BENIGN PROSTATIC TISSUE. G. PROSTATE, RIGHT BASE LATERAL; CORE BIOPSY: BENIGN PROSTATIC TISSUE. H. PROSTATE, RIGHT BASE MEDIAL; CORE BIOPSY: BENIGN PROSTATIC TISSUE. I. PROSTATE, RIGHT MID LATERAL; CORE BIOPSY: BENIGN PROSTATIC TISSUE. J. PROSTATE, RIGHT MID MEDIAL; CORE BIOPSY: BENIGN PROSTATIC TISSUE. K. PROSTATE, RIGHT APEX LATERAL; CORE BIOPSY: BENIGN PROSTATIC TISSUE. L. PROSTATE, RIGHT APEX MEDIAL; CORE BIOPSY: BENIGN PROSTATIC TISSUE. jse/11/29/2024 Electronically Signed Out ESTHER STEINER MD COMMENT [id number] Clinical Information and History: Prostatic adenocarcinoma; collected 03/18/2024; please review per Dr. Tyson. Tissue(s) Submitted: A: LEFT BASE LATERAL B: LEFT BASE MEDIAL C: LEFT MIID LATERAL D: LEFT MID MEDIAL E: LEFT APEX LATERAL F: LEFT APEX MEDIAL G: RIGHT BASE LATERAL H: RIGHT BASE MEDIAL I: RIGHT MID LATERAL J: RIGHT MID MEDIAL K: RIGHT APEX LATERAL L: RIGHT APEX MEDIAL Gross Description: Received from [facility] are 36 H&E stained slides and 3 IHC stained slides labeled [id number] (PIN 4) for consultative review. E ICD Codes: R97.2 Elevated prostate specific antigen [PSA] HOSPITAL LAB 11/22/2024 11/25/2024 10: 40 AM EDT Comment:LEFT BASE LATERAL&LE FT BASE MEDIAL&LEFT MIID LATERAL&LEFT MID MEDIAL&LEFT APEX LATERAL us Juwan Tyson MD PATHOLOGY/CYTOLOGY ORDER STUART Final Result [facility]OSPITAL [facility] See Below * PET/CT Ga68 PSMA Skull to Mid Thigh (Initial Treatment) (11/20/2024 3:54 PM EDT) Anatomical Region Laterality Modality Positron Emissio n Tomography (PET) 11/21/2024 3:38 PM EDT Impressions 11/21/2024 3:54 PM EDT 1. No evidence metastatic prostate cancer. 2. Mild asymmetric radiotracer expression in the left lobe of the prostate, likely related to biopsy proven prostate neoplasm. Signed by: Mike Rojo M.D. Narrative 11/21/2024 3:54 PM EDT EXAM: PET/CT GA68 PSMA SKULL BASE TO MID-THIGH - INITIAL TREATMENT on 11/20/2024 3:53 PM CLINICAL HISTORY: Patient with unfavorable intermediate risk prostate cancer. Rule out metastasis.. COMPARISONS: None TECHNIQUE: Approximately 62 minutes following intravenous administration of 5.5 millicuries of [id number] via a right antecubital fossa vein, a CT attenuation corrected PET scan from the vertex to the mid thigh was acquired. Iterative reconstruction was employed to reduce radiation exposure. Multiplanar PET/CT fusion images were constructed. CT images are intended for triangulation, anatomic correlation and attenuation correction. CT images are not intended for primary diagnosis. PET scanning may not detect hypometabolic tumor or tumor deposits less than 1 cm in size. FINDINGS: HEAD AND NECK: No abnormal PSMA uptake. CHEST: No abnormal PSMA uptake. There is diffuse bilateral peripheral reticular interstitial thickening. ABDOMEN AND PELVIS: There is heterogeneous background PSMA uptake in the prostate. Small area of slightly asymmetric uptake in the left lobe of the prostate, mid gland has an SUV of 2.8. There is no abdominal or pelvic lymph node FDG expression. MUSCULOSKELETAL: No abnormal PSMA uptake. Procedure Note Walter Rojo MD - 11/21/2024 EXAM: PET/CT GA68 PSMA SKULL BASE TO MID-THIGH - INITIAL TREATMENT on11/20/2024 3:53 PM CLINICAL HISTORY: Patient with unfavorable intermediate risk prostate cancer. Rule outmetastasis.. COMPARISONS: None TECHNIQUE: Approximately 62 minutes following intravenous administrationof 5.5 millicuries of [id number] via a right antecubital fossa vein, aCT attenuation corrected PET scan from the vertex to the mid thigh wasacquired. Iterative reconstruction was employed to reduce radiation exposure. Multiplanar PET/CT fusionimages were constructed. CT images are intended for triangulation,anatomic correlation and attenuation correction. CT images are notintended for primary diagnosis. PET scanning may not detect hypometabolic tumor or tumor deposits less than 1 cm in size. FINDINGS: HEAD AND NECK: No abnormal PSMA uptake. CHEST: No abnormal PSMA uptake. There is diffuse bilateral peripheral reticular interstitial thickening. ABDOMEN AND PELVIS: There is heterogeneous background PSMA uptake in the prostate. Small areaof slightly asymmetric uptake in the left lobe of the prostate, mid glandhas an SUV of 2.8. There is no abdominal or pelvic lymph node FDG expression. MUSCULOSKELETAL: No abnormal PSMA uptake. IMPRESSION: 1. No evidence metastatic prostate cancer. 2. Mild asymmetric radiotracer expression in the left lobe of theprostate, likely related to biopsy proven prostate neoplasm. Signed by: Mike Rojo M.D. 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
--- OUTSIDE RECORDS SUMMARY | 2025-01-05 19:33 | XMS_ITS | Encounter Summary ---
Author Organization [facility] Address [address] [place] [address] Care Team Providers Care Kosher Dietary Service Supervisor Name Role Phone Jarad Joseph MD Primary Care Provider + [phone] Reason for Visit * Reason Onset Date Comments Other 10/21/2024 Encounter Details Date Type Department Care Team ([facility] Contact Info) Description 10/21/2024 Telephone [facility] CALL [facility] [address] [phone] Juwan yTson MD [address] [phone] Other Social History Tobacco Use Types Packs/Day Years Used Date Smoking Tobacco: Former Cigarettes Smokeless Tobacco: Never Alcohol Use Standard Drinks/Week Comments Yes 0 (1 standard drink = 0.6 oz pur e alcohol) 3 drinks a week Sex and Gender Information Value Date Recorded Sex Assigned at Male 10/14/2024 10:25 AM EDT Legal Sex Male 6:34 PM EST Gender Identity Agender 10/14/2024 10:25 AM EDT Sexual Orientation Heterosexual (straight) 10/14 10:25 AM EDT documented as of this encounter Miscellaneous Notes * Telephone Encounter - Jena Hoyt RN - 10/23/2024 12:24 PM EDT Pt wants to be put under for biopsy, so he has elected to go with the transperineal biopsy. He asked that someone call him tomorrow after 1 pm. documented in this encounter Plan of Treatment Upcoming Encounters Date Type Department Care Team (Late st Contact Info) Description 01/13/2025 8:00 AM EDT Office Visit [facility] Urologic Surgery [place] [address] [address] [place] [address] Juwan Tyson MD [address] [address] documented as of this encounter Visit Diagnoses Not on filedocumented in this encounter Care Teams Kosher Dietary Service Supervisor Relationship Specialty Start Date End Date Jarad Joseph MD [address] [place] [address] PCP - General Family Medicine 08/23/24 documented as of this encounter
--- OUTSIDE RECORDS SUMMARY | 2025-01-05 19:33 | XMS_ITS | Patient Health Record ---
Author Organization [facility] Address [address] [place] [phone] Care Team Providers Care News Agent Name Role Phone CONNIE BAILEY Primary Care Provider Saúl Martin [phone] Reason For Referral No Information Medications Medication SIG (Take, Route, Frequency, Duration) Notes Start Date End Date Status Lovastatin 20 MG 1 tablet with a meal Orally Once a day Active Mirtazapine 30 MG 1 tablet before bedt nazia in the evening Orally Once a day Active FLUoxetine HCl 40 MG 1 capsule in the mo rning Orally Once a day Active Pantoprazole Sodium 40 MG 1 tablet Orally Once a day Active Multi Vitamin/Minerals Orally Active Vitamin B12 Active Wellbutrin 100 MG 1 tablet Orally Twic e a day Active clonazePAM 1 MG 1 tablet Orally once a day Active Ibuprofen 600 MG 1 tablet Orally prn Active traZODone HCl 300 MG 0.5 tablet at bedti me as needed Orally Once a day Active Vitamin C Active Aspir-81 81 MG 1 tablet Orally Once a day Active Problems Problem Type SNOMED Code ICD Code Onset Dates Problem Status W/U Status Risk Notes Problem 529937765 Colon cancer screening (Z12.11) Active confirmed Problem [id number] Gastroesophageal reflux disease without esophagitis (K21.9) Active confirmed Encounters Encounter Location Date Provider Diagnosis [facility] [address] [place] [phone] 01/01/2025 Saúl Myrick Plan Of Treatment Future Test Test Name Order Date UPPER GI ENDOSCOPY 12/05/2014 COLONOSCOPY 12/05/2014 Next Appt Details Provider Name:Saúl Myrick , 05/07/2025 03:00:00 PM, [address] [facility] [facility], [address], [place], [address], Insurance Providers Payer Name Payer Address Payer Phone Subscriber Number Group Number Insured Name Patient Relationship to Insured Coverage Start Date Coverage End Date [employer] [address] [place] [address] [place] [address] [id number] VIKKI STANLEY Self - patient is the insured Medical (General) History Medical History History ICD Code Colonoscopy 12-22-2003--neg. except for internal hemorrhoids and diverticulosis Arthritis, светлана. hands, neck, back, hips GERD Denies AK,DM,CVA,Lung disease,renal dise ase Anxiety/depression Hyperlipidemia Surgical History Surgery Date(Month/Year) Hernia repair X2-left inginal Deviated septum repair Tonsillectomy
[2025-01-05 19:43] VITALS: BP 145/76; PULSE 77; RESP 20; TEMP 36.7; O2SAT 95
== END 2025-01-05 19:44 | disposition short-term general hospital (02) ==
PROVIDERS: Emergency Provider Emergency Medicine Emergency Medical Services; PCP Nurse Practitioner Family
DX: R33.9 Retention of urine, unspecified (principal); R10.30 Lower abdominal pain, unspecified; Z79.899 Other long term (current) drug therapy; Z87.891 Personal history of nicotine dependence
CPT/HCPCS: 36415; 80048; 80076; 83690; 85025; 85610; 96374; 99285; J1171

== ENCOUNTER 2025-01-20 15:50 | Outpatient (AMB) | payer MEDICARE, SELFPAY ==
--- OUTSIDE RECORDS SUMMARY | 2025-01-01 11:40 | XMS_ITS ---
Author Organization [facility] Address [address] [place] [address] Care Team Providers Care Data Sme Name Role Phone CONNIE BAILEY Primary Care Provider Saúl Martin [phone] REASON FOR VISIT Patient presents today for a COLON SCREENING Encounters Encounter Location Date Provider Diagnosis [facility] [address] [place] [address] 01/01/2025 Saúl Myrick Plan Of Treatment Next Appt Details Provider Name:Saúl Myrick , 05/07/2025 03:00:00 PM, [address], [address], [place], [address], Progress Notes * HARLEY STANLEYOB:1950 (74 yo M)Acc No.[id number]:01/01/2025 Progress Notes Patient: VIKKI PATIÑO Provider: Jose Cruz Myrick MD :1950 A ge:74 Y S ex:Male Date:01/01/2025 Address:[address] [place], [place] [id number] Pcp:CONNIE BAILEY Subjective: * Chief Complaints: * 1 . Patient presents today for a COLON SCREENING. * Medical History: Objective: * Vitals: Assessment: Plan: * Treatment: * * The named appointment provid er may or may not be the originator of this progress note, and it is not deemed complete until electronically signed by the appointment provider. Sign off status: Pending * Provider: Jose Cruz Myrick MD Date: 0 01/01/2025 Generated for Angely haas/Briana/Aramis on: 0 01/20/2025 05:55 PM EDT
--- OUTSIDE RECORDS SUMMARY | 2025-01-14 13:44 | XMS_ITS | Encounter Summary ---
Author Organization [facility] Address [address] [place] [address] Care Team Providers Care Wood Tile Installation Helper Name Role Phone Jarad Joseph MD Primary Care Provider Jarad Joseph MD Unavailable [phone] Encounter Details Date Type Department Care Team (Latest Contact Info) Description 01/14/2025 1:44 PM EDT - 01/14/2025 11:59 PM EDT Hospital Encounter [facility] Radiology [address] [place] [address] Juwan Tyson MD [address] [address] Prostate cancer (HCC); Hx of radical prostatectomy Discharge Disposition: Home or Self Care Social History Tobacco Use Types Packs/Day Years Used Date Smoking Tobacco: Never Smokeless Tobacco: Never Alcohol Use Standard Drinks/Week Comments Yes 3 (1 standard drink = 0.6 oz pur e alcohol) 3 drinks a week [facility] Utilities Answer Date Recorded In the past 12 months has [employer], gas, oil, or water [employer] threatened to shut off services in your home? No 01/06/2025 AUDIT-C Answer Date Recorded Q1: How often do you have a drink containing alc ohol? 2-4 times a month 01/06/2025 Q2: How many drinks containi ng alcohol do you have on a typical day when you are drinking? 3 or 4 01/06/2025 Q3: How often do you have si x or more drinks on one occasion? Never 01/06/2025 Overall Financial Resource Strain (CARDIA) Answe r Date Recorded How hard is it for you to pa y for the very basics like food, housing, medical care, and heating? Not very hard 01/06/2025 Hunger Vital Sign Answer Date Recorded Within the past 12 months, y ou worried that your food would run out before you got the money to buy more. Never true 01/07/20 Within the past 12 months, t he food you bought just didn't last and you didn't have money to get more. Never true 01/06/2025 PRAPARE - Transportation Answer Date Re corded In the past 12 months, has l ack of transportation kept you from medical appointments or from getting medications? No 12/23 In the past 12 months, has l ack of transportation kept you from meetings, work, or from getting things needed for daily living? No 01/06/2025 Housing Stability Vital Sign Answer Soren e Recorded In the last 12 months, was t here a time when you were not able to pay the mortgage or rent on time? No 01/06/2025 In the past 12 months, how m any times have you moved where you were living? 0 01/06/2025 At any time in the past 12 m [facility], were you homeless or living in a penitentiary (including now)? No 01/06/2025 Sex and Gender Information Value Date Recorded Sex Assigned at Male 10/14/2024 10:25 AM EDT Legal Sex Male 6:34 PM EST Gender Identity Male 01/05/2025 9:36 PM EDT Sexual Orientation Heterosexual (straight) 10/14 10:25 AM EDT documented as of this encounter Medications at Time of Discharge acetaminophen (TYLENOL) 325 MG tabletIndications :Post-operative pain Take 2 tablets (650 mg total) by mouth 4 times daily (every 6 hours) as needed for moderate pain, headaches or fever. 01/07/2025 aspirin (Aspirin 81) 81 MG chewable tablet Chew 1 tablet (81 mg total) every morning. aspirin enteric coated 81 MG EC tablet Take 1 tablet (81 mg total) by mouth daily. atorvastatin (LIPITOR) 40 MG tablet Take 1 tablet (40 mg total) by mouth every evening. 10/20/2024 atorvastatin (LIPITOR) 40 MG tablet Take 1 tablet (40 mg total) by mouth nightly. 10/20/2024 buPROPion (Wellbutrin SR) 100 MG 12 hr tablet Take 1 tablet (100 mg total) by mouth 2 times a day. clonazePAM (KlonoPIN) 1 MG tablet TAKE 1/2 TABLET BY MOUTH TWICE A DAY AND WHOLE TAB AT NIGHT clonazePAM (KlonoPIN) 1 MG tablet Take 0.5 tablets (0.5 mg total) by mouth 2 (two) times a day in the morning and the early evening.. 12/27/2024 [facility] Magnesium Citrate 1.745 GM/30ML Solution solution every morning. 09/11/2024 finasteride (PROSCAR) 5 MG tabletIndications :Benign prostatic hyperplasia with lower urinary tract symptoms, symptom details unspecified Take 1 tablet (5 mg total) by mouth daily. 30 tablet 11 11/21/2024 finasteride (PROSCAR) 5 MG tablet Take 1 tablet (5 mg total) by mouth daily. FLUoxetine (PROzac) 20 MG capsule 1 capsule (20 mg total) every morning. 60 mg total dose 09/16/2024 FLUoxetine (PROzac) 40 MG capsule 1 capsule (40 mg total) every morning. 60 mg total dose FLUoxetine (PROzac) 40 MG capsule Take 1 capsule (40 mg total) by mouth daily. mirtazapine (REMERON) 45 MG tablet 11/12/2024 mirtazapine (REMERON) 45 MG tablet Take 1 tablet (45 mg total) by mouth nightly. 11/12/2024 Multiple Vitamins-Minerals (MULTI VITAMIN/MINERALS PO) 1 Dose daily. multivitamin Tab tablet Take 1 tablet by mouth daily. naloxone (NARCAN) 4 mg/0.1 mL Liquid nasal spray deviceIndications :Prostate cancer (HCC) As needed for opioid overdose. [place] contents (4mg) into one nostril once. May repeat every 2 to 3 minutes in alternating nostrils. Call 911 immediately after use. 1 each 01/05/2025 naloxone (NARCAN) 4 mg/0.1 mL Liquid nasal spray device 1 spray (4 mg total) into each nostril once as needed for opioid reversal. 01/05/2025 oxybutynin (DITROPAN) 5 mg tabletIndications :Post-operative pain Take 1 tablet (5 mg total) by mouth 2 (two) times a day. 60 tablet 01/07/2025 5 oxyCODONE (ROXICODONE) 5 MG immediate release tabletIndications :Prostate cancer (HCC) Take 1 tablet (5 mg total) by mouth every 4 (four) hours as needed for severe pain. Max Daily Amount: 30 mg 8 tablet 01/04/2025 oxyCODONE (ROXICODONE) 5 MG immediate release tablet Take 1 tablet (5 mg total) by mouth 4 times daily (every 6 hours) as needed. 01/04/2025 PANTOprazole (PROTONIX) 40 MG EC tablet Take 1 tablet (40 mg total) by mouth every morning. PANTOprazole (PROTONIX) 40 MG EC tablet Take 1 tablet (40 mg total) by mouth daily. 12/04/2024 PANTOprazole (PROTONIX) 40 MG EC tabletIndications :Post-operative pain Take 1 tablet (40 mg total) by mouth daily. 30 tablet 01/08/2025 5 polyethylene glycol (miraLAx) 17 g packetIndications :Prostate cancer (HCC) Take 1 packet (17 g total) by mouth daily. 30 packet 01/04/2025 5 polyethylene glycol (miraLAx) 17 g packetIndications :Post-operative pain Take 1 packet (17 g total) by mouth daily as needed for constipation. 14 packet 01/08/2025 5 senna-docusate (SENNA-S) 8.6-50 MGIndications:Pos t-operative pain Take 2 tablets by mouth nightly. 60 tablet 01/08/2025 5 simethicone (MYLICON) 80 MG chewable tabletIndications :Post-operative pain Chew 1 tablet (80 mg total) 4 times daily (every 6 hours) as needed for flatulence. 30 tablet 01/08/2025 5 traZODone (DESYREL) 100 MG tablet 1 tablet (100 mg total) nightly. 10/15/2024 traZODone (DESYREL) 100 MG tablet Take 2 tablets (200 mg total) by mouth nightly. documented as of this encounter Plan of Treatment Upcoming Encounters Date Type Department Care Team (Late st Contact Info) Description 01/22/2025 1:15 PM EDT Office Visit [facility] [address] [place] [address] Juwan Tyson MD [address] [address] documented as of this encounter Procedures Procedure Name Priority Date/Time Associated Diagnosis Comments FL CYSTOGRAM 3+ VIEWS Routine 01/14/2025 3:20 PM EDT Prostate cancer (HCC) Hx of radical prostatectomy documented in this encounter Results * FL Cystogram 3+ views (01/14/2025 3:20 PM EDT) Anatomical Region Laterality Modality Pelvis Radio Fluoroscop y 01/14/2025 1:50 PM EDT Impressions 01/14/2025 5:17 PM EDT Urinary bladder leak with contrast extravasation seen extending from the posterior aspect of the bladder, possibly from the urethrovesical junction. There is retention of contrast overlying the surrounding soft tissues seen on post void images. This critical result was discussed with JUWAN TYSON MD by direct secure messaging via Sans[employer] at 01/14/2025 3:19 PM EST and it was ascertained that the content and urgency of the report was understood at the time of direct communication. Interpreted by: Jerrod Philip MD Freight Router I personally reviewed the images and the resident's preliminary report and AGREE with the report as it is now presented (RADPAL1). Narrative 01/14/2025 5:17 PM EDT EXAMINATION: FL Cystogram CLINICAL INFORMATION: s/p RALP on 01/03. Evaluate for urine leak. Catheter in place COMPARISON: None. TECHNIQUE: Initial spring manufacturing set up technician image was obtained. 400 mL of Cysto-Conray was administered through the Hernandez catheter under fluoroscopic guidance. Additional spot images were taken in the AP, oblique, and lateral positions. FLUOROSCOPY TIME: 3.8 minutes of fluoroscopic time was utilized. DOSE AREA PRODUCT: 274.346 dGy-cm2 FINDINGS: Dianetic Counselor image: Hernandez catheter in place. Surgical clips overlying the perineum. The bladder was filled with 400 mL of Cysto-Conray. Contrast extravasation seen extending from the urinary bladder posteriorly, best seen on the bilateral obliquity images (series 11, 12). Residual contrast is seen overlying the surrounding soft tissues on post void images (series 13). The attending, Dr. Dotson, was present at the critical portion of the examination. Procedure Note Arben Dotson MD - 01/14/2025 EXAMINATION: FL Cystogram CLINICAL INFORMATION: s/p RALP on 01/03. Evaluate for urine leak. Catheter in place COMPARISON: None. TECHNIQUE: Initial spring manufacturing set up technician image was obtained. 400 mL of Cysto-Conray was administered through the Hernandez catheter under fluoroscopic guidance. Additional spot images were taken in the AP, oblique, and lateral positions. FLUOROSCOPY TIME: 3.8 minutes of fluoroscopic time was utilized. DOSE AREA PRODUCT: 274.346 dGy-cm2 FINDINGS: Dianetic Counselor image: Hernandez catheter in place. Surgical clips overlying the perineum. The bladder was filled with 400 mL of Cysto-Conray. Contrast extravasation seen extending from the urinary bladder posteriorly, best seen on the bilateral obliquity images (series 11, 12). Residual contrast is seen overlying the surrounding soft tissues on post void images (series 13). The attending, Dr. Dotson, was present at the critical portion of the examination. IMPRESSION: Urinary bladder leak with contrast extravasation seen extending from the posterior aspect of the bladder, possibly from the urethrovesical junction. There is retention of contrast overlying the surrounding soft tissues seen on post void images. This critical result was discussed with JUWAN TYSON MD by direct secure messaging via [employer] at 01/14/2025 3:19 PM EST and it was ascertained that the content and urgency of the report was understood at the time of direct communication. Interpreted by: Jerrod Philip MD Freight Router I personally reviewed the images and the resident's preliminary report and AGREE with the report as it is now presented (RADPAL1). us Juwan Tyson MD IMG FLUOROSCOPY ORDERABL ES Final Result documented in this encounter Visit Diagnoses Diagnosis Prostate cancer (HCC) Malignant neoplasm of prostate Hx of radical prostatectomy documented in this encounter Administered Medications Inactive Administered Medications - up to 1 most recent administrations Medication Order MAR Action Action Date Dose Rate Site iothalamate (CYSTO-CONRAY II) 17.2 % urethral solution 400 mL 400 mL, Bladder Instillation, Once in imaging, contrast, Starting on 01/14/25 at 1520, For 1 dose, Radiology Appointment Given 01/14/2025 3:20 PM EDT 400 mL documented in this encounter Care Teams Wood Tile Installation Helper Relationship Specialty Start Date End Date Jarad Joseph MD [address] [place] [address] PCP - General Family Medicine 01/05/25 Jarad Joseph MD [address] [place] [address] Family Medicine 01/05/25 documented as of this encounter
--- NOTE | 2025-01-20 15:55 | A.OFFPC_ITS ---
Vital Signs 01/20/25 15:56 Height 5 ft 7 in Weight 152 lb BMI 23.8 BP 104/62 Blood Pressure Location Lt brachial Position Sitting Respiration 18 Pulse 78 Pulse Source Pulse Oximeter Temp 98.2 F Temp Source Oral Pulse Oximetry (%) 97 Oxygen Delivery Method Room Air Intake Visit Reasons: 4m follow up Intake Note: Pt is here today for 4 months follow up visit. Allergies No Known Allergies Allergy (Verified 01/20/25 17:00) Medication List - Last Reconciled 01/20/25 by CORRY Damico- atorvastatin 40 mg PO DAILY clonazepam 1 mg PO BID finasteride 5 mg PO DAILY 90 days fluoxetine mg PO fluoxetine 20 mg PO QAM mirtazapine 45 mg PO BEDTIME pantoprazole 40 mg PO DAILY polyethylene glycol 3350 (Miralax) 17 grams PO DAILY tadalafil 5 mg PO DAILY 90 days trazodone 2 tab at bedtime Tobacco use date assessed: 01/20/25 Fall risk assessment: 2 + Falls in past year Last assessed Fall Risk: 01/20/25 Dental Screening Dental Screen Date: 09/18/24 HPI 4m follow up HPI Details Chief Complaint The patient presents for follow-up care after a radical prostatectomy. History of Present Illness The patient is a 74-year-old male presenting with follow-up after radical prostatectomy. The surgery was conducted on January 03, 2025, and was successful. He currently has a Hernandez catheter and denies any fever or chills. The urine is slightly concentrated with possible mucus particles, but no significant blood is observed. The abdominal incision sites are well approximated with no signs of infection. The patient is scheduled for a follow-up with his urologist in two days for potential Hernandez catheter removal. He has been advised to maintain adequate hydration and to seek emergency care if he develops fevers or chills. The patient appears pale, and blood work, including a CBC, is planned after fasting. Social History Health Maintenance Review of Systems - General: Denies fever or chills Physical Exam General: Cooperative, healthy appearing, comfortable, no acute distress and well developed, but somewhat of a pale complexion Orientation: Patient oriented x3 Limitations: No limitations Head: Normal to inspection Ears: Hearing grossly normal bilaterally Nose: Normal external nose present Face and sinus: Normal facial exam Eyes: Appearance normal, both eyes and all related structures Neck: Normal visual inspection and Yes full ROM Respiratory: Normal respiratory effort and able to speak in complete sentences. Clear to auscultation bilaterally Cardiovascular: Regular rate and rhythm. Normal S1 and S2 GI: Normal to inspection. Soft to palpation and nontender. Hernandez bag present, draining slightly concentrated urine with possible mucus sediment Skin: No rashes or lesions noted. Lab sites to abdomen look well approximated, no signs of infection Neuro: Patient oriented x3 Extremities: Normal to inspection Results Plan 1. Post-Radical Prostatectomy Status The patient is advised to follow up with his urologist in two days for potential removal of the Hernandez catheter. He is encouraged to maintain adequate fluid intake and to seek emergency care if he develops fevers or chills. 2. Pale Complexion Blood work, including a complete blood count, is planned to evaluate the cause of the pale complexion. The patient is instructed to fast before the blood draw, which is scheduled for the following day. Discussion Notes I discussed with the patient the importance of following up with his urologist for potential removal of the Hernandez catheter and maintaining adequate hydration. I also explained the need for blood work to investigate his pale complexion and instructed him to fast before the test. Patient Instructions - Follow up with your urologist in two d ays for potential Hernandez catheter removal. - Drink plenty of fluids and go to the E R if you develop a fever or chills. - Fast tonight and have blood work done tomorrow to check your blood count. [facility] Medical History Gastrointestinal discomfort Seborrheic keratoses Lumbago of lumbar region with sciatica Depression Mixed hyperlipidemia Surgical History History of inguinal hernia repair History of tonsillectomy Family History Mother Brain cancer Father No problems noted. Social History Housing: House Are you a primary physician assistant primary care to a significant other at home: No Do you presently have visiting nurse or other home services: No Alcohol intake: current Alcohol intake frequency: a few times a week Patient Tobacco Use Status: Former Tobacco user e-Cigarette/Vaping Use: Never Used service: No Current occupational status: employed and retired Cognitive needs: No Hearing needs: No Vision needs: Yes Questionnaire PHQ-9 Over the last 2 weeks, how often have you been bothered by any of the following problems? 1. Little interest or pleasure in doing things: nearly every day 2. Feeling down, depressed, or hopeless: nearly every day 3. Trouble falling or staying asleep, or sleeping too much: several days 4. Feeling tired or having little energy: more than half the days 5. Poor appetite or overeating: several days 6. Feeling bad about yourself - or that you are a failure or have let yourself or your family down: not at all 7. Trouble concentrating on things, such as reading the newspaper or watching television: several days 8. Moving or speaking so slowly that other people could have noticed. Or the opposite - being so fidgety or restless that you have been moving around a lot more than usual: several days 9. Thoughts that you would be better off or of hurting yourself in some way: not at all Total score: 12 Depression Screening Interpretation: Positive (denies any si or hi, declined therapist) Depression Screening Follow-up: Existing condition Depression Screening Done: Yes 75647 - PHQ-9 Billing: Yes Source: Developed by Drs. Saúl Starr, Maddie Jackson, Patel Muniz and colleagues, with an educational silas from [employer]. Thrive Questionnaire Date Thrive assessed: 08/06/24 I am a: Patient What is your living situation today?: I have a place to live, but I am worried about losing it in the future Within the past 12 months, did the food you bought not last and you didn't have the money to get more?: I choose not to answer this question Within the past 12 months, did you worry whether your food would run out before you got money to buy more?: I choose not to answer this question Do you have trouble paying for medicines?: I choose not to answer this question Do you have trouble getting transportation to medical appointments?: I choose not to answer this question Do you have trouble paying your heating and electricity bill?: I choose not to answer this question Do you have trouble taking care of your child, family member or friend?: No Do you have trouble with day-to-day activities such as bathing, preparing meals, shopping, managing finances, etc.?: Yes Are you currently unemployed and looking for a job?: Yes Are you interested in more education?: Yes Currently or been in a relationship where the following occur: Controlled Financially THRIVE Score: 2 JANET-7 AMB Questionnaire JANET-7 Date JANET - 7 assessed: 09/18/24 Source: Developed by Drs. Saúl Starr, Maddie Jackson, Patel Muniz and colleagues, with an educational silas from [employer]. Physical exam (Primary Care) Vital Signs: Last Vital Signs Temp 98.2 F 01/20/25 15:56 Pulse 78 01/20/25 15:56 Resp 18 01/20/25 15:56 BP 104/62 01/20/25 15:56 Pulse Ox 97 01/20/25 15:56 Oxygen Delivery Method Room Air 01/20/25 15:56 BMI result Body Mass Index 23.8 Tobacco/Smoking Status: Tobacco use Status Tobacco use date assessed 01/20/25 01/20/25 16:04 Patient Tobacco Use Status Former Tobacco user 01/20/25 16:04 e-Cigarette/Vaping Use Never Used 01/20/25 16:04 PHQ-9: PHQ-9 Score PHQ-9: Total score 12 01/20/25 16:07 Depression Screening Interpretation: Positive (denies any si or hi, declined therapist) Depression Screening Follow-up: Existing condition Thrive Assessment: Date of Thrive Assessment Date Thrive assessed 08/06/24 01/20/25 16:04 Currently or been in a relationship where the following occur: Controlled Financially Coding Level of Care Code Est Pt Level 3 (82494) Diagnoses Prostate CA C61 H/O radical prostatectomy Z90.79 Additional Codes PHQ-9 - 22502 - PHQ-9 Billing: Yes ([id number]) Assessment & Plan Assessment & Plan (1) Prostate CA: Code(s): C61 - Malignant neoplasm of prostate Category: Medical (2) H/O radical prostatectomy: Code(s): Z90.79 - Acquired absence of other genital organ(s) Category: Surgical Plan . Orders: Orders Comprehensive [place]. Panel Fast Today C61 - Malignant neoplasm of prostate, Z90.79 - Acquired absence of other genital organ(s) TSH reflex Free T4 Today C61 - Malignant neoplasm of prostate, Z90.79 - Acquired absence of other genital organ(s) Complete Blood Count Auto Diff Today C61 - Malignant neoplasm of prostate, Z90.79 - Acquired absence of other genital organ(s) UA CC w/rflx Micro + Cult Today C61 - Malignant neoplasm of prostate, Z90.79 - Acquired absence of other genital organ(s) Lipid Panel Today C61 - Malignant neoplasm of prostate, Z90.79 - Acquired absence of other genital organ(s)
[2025-01-20 15:56] VITALS: BP 104/62; PULSE 78; RESP 18; TEMP 36.8; O2SAT 97; BMI 23.8
--- OUTSIDE RECORDS SUMMARY | 2025-01-20 17:55 | XMS_ITS | Encounter Summary ---
Author Organization [facility] Address [address] [place] [address] Care Team Providers Care Day Care Director Name Role Phone Jarad Joseph MD Primary Care Provider [phone] Jarad Joseph MD Primary Care Provider [phone] Jarad Joseph MD Unavailable [phone] Encounter Details Date Type Department Care Team (Late st Contact Info) Description 12/18/[address] [facility]Ad[facility] in [address] [place] [phone] Juwan Tyson MD [address] [place] [id number] Social History Tobacco Use Types Packs/Day Years [...] Description 01/22/2025 1:15 PM EDT Office Visit [facility] [address] [facility] 100 [place] [address] Juwan Tyson MD [address] [address] documented as of this encounter Visit Diagnoses Not on filedocumented in this encounter Care Teams Day Care Director Relationship Specialty Start Date End Date Jarad Joseph MD [address] [place] [address] PCP - General Family Medicine 08/23/24 01/04/25 Jarad Joseph MD [address] [place] [address] PCP - General Family Medicine 01/05/25 Jarad Joseph MD [address] [place] [address] Family Medicine 01/05/25 documented as of this encounter
--- OUTSIDE RECORDS SUMMARY | 2025-01-20 17:56 | XMS_ITS | Encounter Summary ---
Author Organization [facility] Address [address] [place] [address] Care Team Providers Care Business Development Representative Name Role Phone Jarad Joseph MD Primary Care Provider [phone] Jarad Joseph MD Primary Care Provider [phone] Jarad Joseph MD Unavailable [phone] Reason for Visit * Reason Onset Date Comments Other 10/21/2024 Encounter Details Date Type Department Care Team ([facility] st Contact Info) Description 10/21/2024 Telephone [facility] UROLOGY CALL [facility] [address] [phone] Juwan Tyson MD [address] [address] Other Social History Tobacco Use Types Packs/Day [...] Description 01/22/2025 1:15 PM EDT Office Visit [facility] [address] [facility] [address] [place] [phone] Juwan Tyson MD [address] [place] [address] documented as of this encounter Visit Diagnoses Not on filedocumented in this encounter Care Teams Business Development Representative Relationship Specialty Start Date End Date Jarad Joseph MD [address] [place] [address] PCP - General Family Medicine 08/23/24 01/04/25 Jarad Joseph MD [address] [place] [address] PCP - General Family Medicine 01/05/25 Jarad Joseph MD [address] [place] [address] Family Medicine 01/05/25 documented as of this encounter
--- OUTSIDE RECORDS SUMMARY | 2025-01-20 17:56 | XMS_ITS | Patient Health Record ---
Author Organization [facility] Address [address] [place] [address] Care Team Providers Care Dieing Out Machine Operator Name Role Phone CONNIE BAILEY Primary Care Provider Saúl Martin [phone] Reason For Referral No Information Medications Medication [...] Problem Status W/U Status Risk Notes Problem [id number] Colon cancer screening (Z12.11) Active confirmed Problem [id number] Gastroesophageal reflux disease without esophagitis (K21.9) Active confirmed Encounters Encounter Location Date Provider Diagnosis [facility] [address] [place] [phone] 01/01/2025 Saúl Myrick Plan Of Treatment Future Test Test Name Order Date UPPER GI ENDOSCOPY 12/05/2014 COLONOSCOPY 12/05/2014 Next Appt Details Provider Name:Saúl Myrick , 05/07/2025 03:00:00 PM, [address] [facility], [address], [place], [address], Insurance Providers Payer Name Payer Address Payer Phone Subscriber Number Group Number Insured Name Patient Relationship to Insured Coverage Start Date Coverage End Date [employer] [address] [place] [address] [facility] [place] [phone] [id number] [id number] STANLEY Self - patient is the insured Medical (General) History Medical History History ICD Code Colonoscopy 12-22-2003--neg. except for internal hemorrhoids and diverticulosis Arthritis, светлана. hands, neck, back, hips GERD Denies CO,DM,CVA,Lung disease,renal dise ase Anxiety/depression Hyperlipidemia Surgical History Surgery Date(Month/Year) Hernia repair X2-left inginal Deviated septum repair Tonsillectomy
--- OUTSIDE RECORDS SUMMARY | 2025-01-20 17:56 | XMS_ITS | Encounter Summary ---
Author Organization [facility] Address [address] [place] [address] Care Team Providers Care Computer Processing Scheduler Name Role Phone Jarad Joseph MD Primary Care Provider [phone] Jarad Joseph MD Primary Care Provider [phone] Jarad Joseph MD Unavailable [phone] Encounter Details Date Type Department Care Team (Late st Contact Info) Description 08/01/2024 Scanned Document [facility] Urologic Surgery [address] [address] Urology, Scan Social History Tobacco [...] [facility] [address] [facility] [address] [place] [phone] Juwan Tyson MD [address] [place] [address] documented as of this encounter Visit Diagnoses Not on filedocumented in this encounter Care Teams Computer Processing Scheduler Relationship Specialty Start Date End Date Jarad Joseph MD [address] [place] [address] PCP - General Family Medicine 08/23/24 01/04/25 Jarad Joseph MD [address] [place] [address] PCP - General Family Medicine 01/05/25 Jarad Joseph MD [address] [place] [address] Family Medicine 01/05/25 documented as of this encounter
--- OUTSIDE RECORDS SUMMARY | 2025-01-20 17:56 | XMS_ITS | Encounter Summary ---
Author Organization [facility] Address [address] [place] [address] Care Team Providers Care Buckle Frame Shaper Name Role Phone Jarad Joseph MD Primary Care Provider [phone] Jarad Joseph MD Unavailable [phone] Encounter Details Date Type Department Care Team (Late st Contact Info) Description 01/15/2025 [facility]phone [facility] [address] [facility] [address] [place] [address] Juwan Tyson MD [address] [place] [address] Social History Tobacco Use Types Packs/Day Years Used Date Smoking Tobacco: Never Smokeless Tobacco: Never Alcohol Use Standard Drinks/Week Comments Yes 3 (1 standard drink = 0.6 oz pur e alcohol) 3 drinks a week [facility] Utilities Answer Date Recorded In the past 12 months has [employer], gas, oil, or water company threatened to [...] money to buy more. Never true 01/07/20 25 Within the past 12 months, t [...] any time in the past 12 m [facility], were you homeless or living in a usp (including now)? No 01/06/2025 Sex and Gender Information Value Date Recorded Sex Assigned at Male 10/14/2024 10:25 AM EDT Legal Sex Male 6:34 PM EST Gender Identity Male 01/05/2025 9:36 PM EDT Sexual Orientation Heterosexual (straight) 10/14 10:25 AM EDT documented as of this encounter Miscellaneous Notes * Telephone Encounter - Juwan Tyson MD - 01/15/2025 7:45 AM EDT Images from the original note were not included. Mr. Luciano Whitt underwent a robotic pelvic lymph node dissection and radical prostatectomy on January 03, 2025. I called him today to discuss his situation. Given the difficulty with the anastomosis, we performed a cystogram yesterday. This unfortunately shows a small leak. This should heal with time. Final pathology shows [place] 3+4=7, Grade Group 2, [id number], Stage IIB prostate cancer with negative margins. Prostate volume was 56 cc. 3% of the prostate was involved with cancer. Perineural invasion was noted. Lymphovascular invasion was not seen. The prognostic impact of the pathology report was explained. I relayed the risk of biochemical recurrence based on JULIETTE S, the tables of which are shown below. Patient's JULIETTE S score is 3. Happily, he does not have any AUA or MINAL criteria to consider adjuvant radiation therapy. He will consider phosphodiesterase inhibitors and/or a vacuum pump for sexual function rehabilitation. We reviewed activity levels moving forward. He was instructed to call if he develops any symptoms such as fever, lower urinary tract symptoms, abdominal pain, leg pain/swelling, or respiratory issues. We have scheduled a another cystogram for late next week. Once the catheter comes out, he knows to resume Kegel exercises. documented in this encounter Plan of Treatment Upcoming Encounters Date Type Department Care Team (Late st Contact Info) Description 01/22/2025 1:15 PM EDT Office Visit [facility] [address] [facility] [address] [place] [phone] Juwan Tyson MD [address] [place] [address] documented as of this encounter Visit Diagnoses Not on filedocumented in this encounter Care Teams Buckle Frame Shaper Relationship Specialty Start Date End Date Jarad Joseph MD [address] [place] [address] PCP - General Family Medicine 01/05/25 Jarad Joseph MD [address] [place] [address] Family Medicine 01/05/25 documented as of this encounter
--- OUTSIDE RECORDS SUMMARY | 2025-01-20 17:56 | XMS_ITS | Encounter Summary ---
Author Organization [facility] Address [address] [place] [address] Care Team Providers Care Energy Efficiency Finance Manager Name Role Phone Jarad Joseph MD Primary Care Provider [phone] Jarad Joseph MD Primary Care Provider [phone] Jarad Joseph MD Unavailable [phone] Reason for Visit * Reason Onset Date Comments Appointment 2024 Encounter Details Date Type Department Care Team (Late st Contact Info) Description [address] [address] System, Provider Not In Appointment [...] Description 01/22/2025 1:15 PM EDT Office Visit [facility] [address] [facility] [address] [place] [phone] Juwan Tyson MD [address] [place] [address] documented as of this encounter Visit Diagnoses Not on filedocumented in this encounter Care Teams Energy Efficiency Finance Manager Relationship Specialty Start Date End Date Jarad Joseph MD [address] [place] [address] PCP - General Family Medicine 08/23/24 01/04/25 Jarad Joseph MD [address] [place] [address] PCP - General Family Medicine 01/05/25 Jarad Joseph MD [address] [place] [address] Family Medicine 01/05/25 documented as of this encounter
--- OUTSIDE RECORDS SUMMARY | 2025-01-20 17:56 | XMS_ITS | Clinical Summary ---
Author Organization [facility] Address [address] [place] [id number] Care Team Providers Care Commercial Engineer Name Role Phone Jarad Joseph MD Primary Care Provider Jarad Joseph MD Unavailable [phone] Allergies No known active allergies Medications clonazePAM [...] (81 mg total) every morning. Active Multiple Vitamins-Minerals (MULTI VITAMIN/MINERALS PO) 1 Dose daily. Active buPROPion (Wellbutrin SR) 100 MG 12 hr tablet Take 1 tablet (100 mg total) by mouth 2 times a day. Active finasteride (PROSCAR) 5 MG tabletIndications: Benign prostatic hyperplasia with lower urinary tract [...] (REMERON) 45 MG tablet 11/13/19 25 Active oxyCODONE (ROXICODONE) 5 MG immediate release tabletIndications: Prostate cancer (HCC) Take 1 tablet (5 mg total) by mouth every 4 (four) hours as needed for severe pain. Max Daily Amount: 30 mg 8 tablet 01/05/20 25 Active polyethylene glycol (miraLAx) 17 g packetIndications: Prostate cancer (HCC) Take 1 packet (17 g total) by mouth daily. 30 packet 01/05/20 25 025 Active naloxone (NARCAN) 4 mg/0.1 mL Liquid nasal spray deviceIndications: Prostate cancer (HCC) As needed for opioid overdose. [place] contents (4mg) into one nostril once. May repeat every 2 to 3 minutes in alternating nostrils. Call 911 immediately after use. 1 each 01/06/20 25 Active finasteride (PROSCAR) 5 MG tablet Take 1 tablet (5 mg total) by mouth daily. Active FLUoxetine (PROzac) 40 MG capsule Take 1 capsule (40 mg total) by mouth daily. Active traZODone (DESYREL) 100 MG tablet Take 2 tablets (200 mg total) by mouth nightly. Active atorvastatin (LIPITOR) 40 MG tablet Take 1 tablet (40 mg total) by mouth nightly. 10/21/19 25 Active clonazePAM (KlonoPIN) 1 MG tablet Take 0.5 tablets (0.5 mg total) by mouth 2 (two) times a day in the morning and the early evening.. 12/28/19 25 Active naloxone (NARCAN) 4 mg/0.1 mL Liquid nasal spray device 1 spray (4 mg total) into each nostril once as needed for opioid reversal. 01/06/20 25 Active oxyCODONE (ROXICODONE) 5 MG immediate release tablet Take 1 tablet (5 mg total) by mouth 4 times daily (every 6 hours) as needed. 01/05/20 Active PANTOprazole (PROTONIX) 40 MG EC tablet Take 1 tablet (40 mg total) by mouth daily. 12/05/19 Active mirtazapine (REMERON) 45 MG tablet Take 1 tablet (45 mg total) by mouth nightly. 11/13/19 Active multivitamin Tab tablet Take 1 tablet by mouth daily. Active aspirin enteric coated 81 MG EC tablet Take 1 tablet (81 mg total) by mouth daily. Active acetaminophen (TYLENOL) 325 MG tabletIndications: Post-operative pain Take 2 tablets (650 mg total) by mouth 4 times daily (every 6 hours) as needed for moderate pain, headaches or fever. 01/08/20 Active PANTOprazole (PROTONIX) 40 MG EC tabletIndications: Post-operative pain Take 1 tablet (40 mg total) by mouth daily. 30 tablet 01/09/20 25 Active oxybutynin (DITROPAN) 5 mg tabletIndications: Post-operative pain Take 1 tablet (5 mg total) by mouth 2 (two) times a day. 60 tablet 01/08/20 025 Active polyethylene glycol (miraLAx) 17 g packetIndications: Post-operative pain Take 1 packet (17 g total) by mouth daily as needed for constipation. 14 packet 01/09/20 Active senna-docusate (SENNA-S) 8.6-50 MGIndications:Post -operative pain Take 2 tablets by mouth nightly. 60 tablet 01/09/20 25 Active simethicone (MYLICON) 80 MG chewable tabletIndications: Post-operative pain Chew 1 tablet (80 mg total) 4 times daily (every 6 hours) as needed for flatulence. 30 tablet 01/09/20 25 025 Active sulfamethoxazole-t rimethoprim (BACTRIM DS,SEPTRA DS) 800-160 MG per tabletIndications: Prostate cancer (HCC) Take 1 tablet by mouth 2 (two) times a day. Begin taking these starting the day before catheter removal. Take the day before, day of, and day after your catheter is removed. 6 tablet 09/13/ LORazepam (ATIVAN) 1 MG tablet Take 1 tablet (1 mg total) by mouth 2 times daily (every 12 hours) as needed for anxiety. Discontinu ed(Med List Clean-up/O ld Med - No E-Cancel/N o AVS) mirtazapine (REMERON SANJEEV-TAB) 45 MG disintegrating tablet Take 1 tablet (45 mg total) by mouth nightly. Discontinu ed(Med List Clean-up/O ld Med - No E-Cancel/N o AVS) OMEprazole (PriLOSEC) 20 MG capsule Take 1 capsule (20 mg total) by mouth every morning before breakfast. OTC Discontinu ed(Med List Clean-up/O ld Med - No E-Cancel/N o AVS) sulfamethoxazole-t rimethoprim (BACTRIM DS,SEPTRA DS) 800-160 MG per tablet Take 1 tablet by mouth 2 (two) times a day. 01/05/20 Discontinu ed(Stop Taking at Discharge) clonazePAM (KlonoPIN) 1 MG tablet Take 1 tablet (1 mg total) by mouth nightly. Discontinu ed(Stop Taking at Discharge) cefpodoxime (VANTIN) 100 mg tabletIndications: Post-operative pain Take 1 tablet (100 mg total) by mouth 2 (two) times a day. Do not start before January 08, 2025. 6 tablet 01/09/20 Active Problems Problem Noted Date Diagnosed Date Bladder spasm 01/06/2025 Assessment & Plan (01/07/2025 6:27 PM EDT): Recent laparoscopic radical prostatectomy for prostate cancer Per urology, Hernandez catheter was placed and should remain in place at discharge, they will follow-up with him as outpatient for voiding trial, in about 1-2 weeks. WBC trending down Patient remains afebrile Urinalysis showed trace leuk esterase, no bacteria present, white blood count and red blood cells >25, large blood, some ketones and protein Patient remains on IV ceftriaxone while inpatient, transition to Vantin at discharge to complete a course of 5-7 days of antibiotics. Continue monitoring white blood count, No acute interventions planned by urology, patient is cleared for discharge Noted no bowel regimen since last , bowel regimen was adjusted today, in addition to lactulose, MiraLAX, senna, added smog enema. Constipation is most likely from opioid use Abdominal pain is improving, avoid opioids if able Continue oxybutynin 5 mg twice daily Monitor strict I's and O's, daily weight, monitor for PVRs, We will continue with finasteride 5 mg p.o. daily Pain control Continue PPI Increase p.o. intake Patient now tolerating regular diet DVT prophylaxis with Lovenox subcu Plan for early discharge tomorrow, following BM Assessment & Plan (01/06/2025 7:31 AM EDT): Patient followed by urologist Started on Ditropan 5 mg p.o. twice daily Blood pressure 112/67 pulse 82 respiration 16 saturation 99% Patient is complaining of pain suprapubic area .patient was given Percocet 5 to 25 mg p.o. every 6 hours as needed pain patient stated that Percocet helps Assessment & Plan (01/06/2025 1:43 AM EDT): - Patient underwent laparoscopic radical prostatectomy on 01/03 for prostate cancer - He presented with lower abdominal pain. - S/P 1 dose of ceftriaxone; UA pending - Urology evaluated the patient in ED. Plan - Plan for admission for observation - Urology on consult; appreciate recommendations - Will start Ditropan for symptom relief per urology's recs. However patient should stop taking Ditropan the day before his Hernandez's catheter removal as this will increase his risk of urinary retention and fail voiding trial. - Tylenol as needed for pain and fever - Follow-up UA; patient got 1 dose of ceftriaxone in ED but will hold on antibiotics for now and resume based on UA results tomorrow -Continue home medication Finasteride 5 mg daily Hyperlipidemia 01/06/2025 Assessment & Plan (01/07/2025 6:27 PM EDT): Continue atorvastatin 40 mg daily Assessment & Plan (01/06/2025 1:43 AM EDT): -Continue atorvastatin 40 mg Anxiety 01/06/2025 Assessment & Plan (01/07/2025 6:27 PM EDT): Patient remains asymptomatic Continue Prozac, fluoxetine, mirtazapine and trazodone at current doses Assessment & Plan (01/06/2025 7:31 AM EDT): Patient is on fluoxetine Prozac 40 mg p.o. daily and also mirtazapine 45 mg oral nightly and trazodone 100 mg oral nightly Assessment & Plan (01/06/2025 1:43 AM EDT): - Continue lorazepam 1 mg twice daily as needed - Continue mirtazapine 45 mg daily - Continue fluoxetine 40 mg daily - Continue trazodone 100 mg daily Depression 01/06/2025 Assessment & Plan (01/07/2025 6:27 PM EDT): Patient remains asymptomatic Continue Prozac, fluoxetine, mirtazapine and trazodone at current doses Assessment & Plan (01/06/2025 7:31 AM EDT): Patient is on fluoxetine Prozac 40 mg p.o. daily and also mirtazapine 45 mg oral nightly and trazodone 100 mg oral nightly Assessment & Plan (01/06/2025 1:43 AM EDT): - Continue lorazepam 1 mg twice daily as needed - Continue mirtazapine 45 mg daily - Continue fluoxetine 40 mg daily - Continue trazodone 100 mg daily GERD (gastroesophageal reflux disease) Assessment & Plan (01/07/2025 6:27 PM EDT): Continue PPI Assessment & Plan (01/06/2025 7:31 AM EDT): Protonix 40 mg p.o. daily Assessment & Plan (01/06/2025 1:43 AM EDT): Omeprazole 40 mg daily Prostate cancer 01/06/2025 Assessment & Plan (01/07/2025 6:27 PM EDT): Recent laparoscopic radical prostatectomy for prostate cancer Per urology, Hernandez catheter was placed and should remain in place at discharge, they will follow-up with him as outpatient for voiding trial, in about 1-2 weeks. WBC trending down Patient remains afebrile Urinalysis showed trace leuk esterase, no bacteria present, white blood count and red blood cells >25, large blood, some ketones and protein Patient remains on IV ceftriaxone while inpatient, transition to Vantin at discharge to complete a course of 5-7 days of antibiotics. Continue monitoring white blood count, No acute interventions planned by urology, patient is cleared for discharge Noted no bowel regimen since last , bowel regimen was adjusted today, in addition to lactulose, MiraLAX, senna, added smog enema. Constipation is most likely from opioid use Abdominal pain is improving, avoid opioids if able Continue oxybutynin 5 mg twice daily Monitor strict I's and O's, daily weight, monitor for PVRs, We will continue with finasteride 5 mg p.o. daily Pain control Continue PPI Increase p.o. intake Patient now tolerating regular diet DVT prophylaxis with Lovenox subcu Plan for early discharge tomorrow, following BM Assessment & Plan (01/06/2025 7:31 AM EDT): Patient followed by urologist Started on Ditropan 5 mg p.o. twice daily Blood pressure 112/67 pulse 82 respiration 16 saturation 99% Patient is complaining of pain suprapubic area .patient was given Percocet 5 to 25 mg p.o. every 6 hours as needed pain patient stated that Percocet helps Assessment & Plan (01/06/2025 1:43 AM EDT): - Patient underwent laparoscopic radical prostatectomy on 01/03 for prostate cancer - He presented with lower abdominal pain. - S/P 1 dose of ceftriaxone; UA pending - Urology evaluated the patient in ED. Plan - Plan for admission for observation - Urology on consult; appreciate recommendations - Will start Ditropan for symptom relief per urology's recs. However patient should stop taking Ditropan the day before his Hernandez's catheter removal as this will increase his risk of urinary retention and fail voiding trial. - Tylenol as needed for pain and fever - Follow-up UA; patient got 1 dose of ceftriaxone in ED but will hold on antibiotics for now and resume based on UA results tomorrow -Continue home medication Finasteride 5 mg daily Hx of radical prostatectomy 01/06/2025 Assessment & Plan (01/07/2025 6:27 PM EDT): Recent laparoscopic radical prostatectomy for prostate cancer Per urology, Hernandez catheter was placed and should remain in place at discharge, they will follow-up with him as outpatient for voiding trial, in about 1-2 weeks. WBC trending down Patient remains afebrile Urinalysis showed trace leuk esterase, no bacteria present, white blood count and red blood cells >25, large blood, some ketones and protein Patient remains on IV ceftriaxone while inpatient, transition to [facility] at discharge to complete a course of 5-7 days of antibiotics. Continue monitoring white blood count, No acute interventions planned by urology, patient is cleared for discharge Noted no bowel regimen since last , bowel regimen was adjusted today, in addition to lactulose, MiraLAX, senna, added smog enema. Constipation is most likely from opioid use Abdominal pain is improving, avoid opioids if able Continue oxybutynin 5 mg twice daily Monitor strict I's and O's, daily weight, monitor for PVRs, We will continue with finasteride 5 mg p.o. daily Pain control Continue PPI Increase p.o. intake Patient now tolerating regular diet DVT prophylaxis with Lovenox subcu Plan for early discharge tomorrow, following BM Assessment & Plan (01/06/2025 7:31 AM EDT): Patient followed by urologist Started on Ditropan 5 mg p.o. twice daily Blood pressure 112/67 pulse 82 respiration 16 saturation 99% Patient is complaining of pain suprapubic area .patient was given Percocet 5 to 25 mg p.o. every 6 hours as needed pain patient stated that Percocet helps Assessment & Plan (01/06/2025 1:43 AM EDT): - Patient underwent laparoscopic radical prostatectomy on 01/03 for prostate cancer - He presented with lower abdominal pain. - S/P 1 dose of ceftriaxone; UA pending - Urology evaluated the patient in ED. Plan - Plan for admission for observation - Urology on consult; appreciate recommendations - Will start Ditropan for symptom relief per urology's recs. However patient should stop taking Ditropan the day before his Hernandez's catheter removal as this will increase his risk of urinary retention and fail voiding trial. - Tylenol as needed for pain and fever - Follow-up UA; patient got 1 dose of ceftriaxone in ED but will hold on antibiotics for now and resume based on UA results tomorrow -Continue home medication Finasteride 5 mg daily Leukocytosis 01/06/2025 Assessment & Plan (01/07/2025 6:27 PM EDT): Recent laparoscopic radical prostatectomy for prostate cancer Per urology, Hernandez catheter was placed and should remain in place at discharge, they will follow-up with him as outpatient for voiding trial, in about 1-2 weeks. WBC trending down Patient remains afebrile Urinalysis showed trace leuk esterase, no bacteria present, white blood count and red blood cells >25, large blood, some ketones and protein Patient remains on IV ceftriaxone while inpatient, transition to Vantin at discharge to complete a course of 5-7 days of antibiotics. Continue monitoring white blood count, No acute interventions planned by urology, patient is cleared for discharge Noted no bowel regimen since last , bowel regimen was adjusted today, in addition to lactulose, MiraLAX, senna, added smog enema. Constipation is most likely from opioid use Abdominal pain is improving, avoid opioids if able Continue oxybutynin 5 mg twice daily Monitor strict I's and O's, daily weight, monitor for PVRs, We will continue with finasteride 5 mg p.o. daily Pain control Continue PPI Increase p.o. intake Patient now tolerating regular diet DVT prophylaxis with Lovenox subcu Plan for early discharge tomorrow, following BM Assessment & Plan (01/06/2025 7:31 AM EDT): White blood cell at 18.8 on admission Patient received 1 dose of Rocephin yesterday will continue with IV Rocephin Follow-up UA Prostate cancer 01/03/2025 Gastroesophageal reflux disease without [...] Encounters Date Type Department Care Team Description 01/15/2025 Telephone [facility] [address] [place] [address] Juwan Chau MD 01/14/2025 1:44 PM EDT - 01/14/2025 11:59 PM EDT Hospital Encounter [facility] Radiology [address] [place] [address] Juwan Chau MD Prostate cancer (HCC); Hx of radical prostatectomy Discharge Disposition: Home or Self Care 01/06/2025 Travel 01/06/[address] [phone] Juwan Chau MD 01/06/2025 Orders Only [address] [phone] Juwan Chau MD Prostate cancer (HCC) (Primary Dx); Hx of radical prostatectomy 01/05/2025 9:15 PM EDT - 01/08/2025 5:00 PM EDT Hospital Encounter [facility] 1 [address] [place] [address] Bora Trivedi MD Shrestha, Asmita, MD Pervin, Ismat A, MD Muniyappa, Ramesh, MD Post-operative pain (Primary Dx); Bladder spasm; Anxiety; Depression, unspecified depression type ; Leukocytosis, unspecified type; Gastroesophageal reflux disease without esophagitis; Hx of radical prostatectomy Discharge Disposition: Home or Self Care 01/03/2025 1:19 PM EDT Anesthesia Event [facility] [address] [place] [address] Froilan Gaines DO Palaniappan, Dhamodaran, MD 01/03/2025 11:30 AM EDT - 01/03/2025 3:30 PM EDT Surgery [facility] [address] [place] [address] Juwan Chau MD ROBOTIC RADICAL PROSTATECTOMY AND PELVIC LYMPH NODE DISSECTION 01/03/2025 9:18 AM EDT - 01/05/2025 11:47 AM EDT Hospital Encounter [facility] [address] [place] [address] Juwan Chau MD Prostate cancer (HCC) (Primary Dx) Discharge Disposition: Home or Self Care 01/03/2025 Travel 12/25/2024 8:15 AM EDT Office Visit [facility] Department of Cardiology [address] [place] [phone] Lisa Al MD Other hyperlipidemia (Primary Dx); Preoperative cardiovascular examination 12/23/2024 Travel 12/19/2024 Documentation [facility] Urologic Surgery [address] [address] Juwan Chau MD 12/18/2024 2:39 PM EDT - 12/18/2024 11:59 PM EDT Hospital Encounter [facility] [address] [place] [address] Natalia Swanson, INTERACTIVE MEDIA DIRECTOR Discharge Disposition: Home or Self Care 12/18/2024 2:30 PM EDT Pre-Admission Testing [facility] in [address] [phone] Natalia Swanson, INTERACTIVE MEDIA DIRECTOR Preop examination (Primary Dx); Preop cardiovascular exam; Malignant neoplasm of prostate (HCC); Gastroesophageal reflux disease without esophagitis; Insomnia, unspecified type; Anxiety and depression ; Constipation, unspecified constipation type; Other hyperlipidemia ; Benign prostatic hyperplasia with lower urinary tract symptoms, symptom details unspecified; Marijuana use 12/18/2024 Orders Only [facility] INPATIENT [address] [place] [phone] Yuri Venegas MD 12/18/2024 Scanned Document Pre-Admission Testing Center in [address] [place] [phone] Juwan Chau MD 12/18/2024 Travel 12/18/2024 Telephone [facility] Urologic Surgery [address] [phone] Juwan Chau MD 12/10/2024 Travel 11/26/2024 Orders Only [facility] INPATIENT [address] [place] [address] Yuri Venegas MD 11/22/2024 8:49 AM EDT - 11/22/2024 11:59 PM EDT Hospital Encounter [facility] OP SPECIMEN LAB [address] [place] [address] Juwan Chau MD Discharge Disposition: Home or Self Care 11/21/2024 Orders Only [address] [phone] Juwan Chau MD Benign prostatic hyperplasia with lower urinary tract symptoms, symptom details unspecified (Primary Dx) 11/21/2024 Telephone [facility] Urologic Surgery [address] [address] Juwan Chau MD 11/20/2024 2:01 PM EDT - 11/20/2024 11:59 PM EDT Hospital Encounter Former[facility] named [facility] Radiology [address] [place] [phone] Juwan Chau MD Discharge Disposition: Home or Self Care 11/20/2024 2:00 PM EDT Hospital Encounter [facility] named [facility] Radiology [address] [place] [phone] Juwan Chau MD Prostate cancer (HCC) Discharge Disposition: Home or Self Care 11/20/[address] [phone] Juwan Chau MD 11/20/2024 Travel 11/20/2024 Telephone [facility] Urologic Surgery [address] [address] Juwan Chau MD 11/12/2024 Documentation [facility] Urologic Surgery [address] [address] Juwan Chau MD 10/24/2024 Telephone [facility] Urologic Surgery [place] [address] [facility] [address] [place] [address] Juwan Chau MD 10/21/2024 Telephone [facility] UROLOGY CALL [facility] [address] [facility] [address] [place] [address] Juwan Chau MD Other from Last 3 Months Family History Medical History Relation Name Comments Cancer Mother Kim Stanley Cancer, Bladder Neg Hx Cancer, Kidney Neg Hx Cancer, Prostate Neg Hx Relation Name Status Comments Mother Kim Stanley Alive Social History Tobacco Use Types Packs/Day Years Used Date Smoking Tobacco: Never Smokeless Tobacco: Never Tobacco Cessation:Counseling Given: Not Answered Alcohol Use Standard Drinks/Week Comments Yes 3 (1 standard drink = 0.6 oz pur e alcohol) 3 drinks a week [facility] Utilities Answer Date Recorded In the past 12 months has th e [employer], gas, oil, or water company threatened to [...] any time in the past 12 m [facility], were you homeless or living in a care home (including now)? No 01/06/2025 Sex and Gender Information Value Date Recorded Sex Assigned at Male 10/14/2024 10:25 AM EDT Legal Sex Male 6:34 PM EST Gender Identity Male 01/05/2025 9:36 PM EDT Sexual Orientation Heterosexual (straight) 10/14 10:25 AM EDT Last Filed Vital Signs Vital Sign Reading Time Taken Comments Blood Pressure 117/77 01/08/2025 2:30 PM EDT Pulse 68 01/08/2025 2:30 PM EDT Temperature 36.5 C (97.7 F) 01/08/2025 2:30 PM EDT Respiratory Rate 18 01/08/2025 2:30 PM EDT Oxygen Saturation 97% 01/08/2025 2:30 PM EDT Inhaled Oxygen Concentration - - Weight 68.1 kg (150 lb 2.1 oz) 01/06/2025 6:47 P M EDT Height 173.7 cm (5' 8.4 ) 01/06/2025 6:47 PM EDT Body Mass Index 22.56 01/06/2025 6:47 PM EDT Plan of Treatment Upcoming Encounters Date Type Department Care Team (Late st Contact Info) Description 01/22/2025 1:15 PM EDT [facility] [address] [phone] Juwan Chau MD [address] [place] [phone] Health Maintenance Due Date Last Done Comments Advance Care Planning 1950 Hepatitis C Virus Screening 1950 COVID-19 Vaccine (#1) 1957 DTaP/Tdap/Td Vaccines (1 - Tdap) 08/24/1971 Pneumococcal Vaccines 50+ (1 of 2 - PCV) 08/24/1971 Zoster (Shingles) Vaccine (1 of 2) 08/24/1971 Colonoscopy 1997 Influenza Vaccine 11/22/2024 RSV Vaccine 60 years and old er and Patients (1 - 1-dose 75+ series) 08/24/2027 Hepatitis B Vaccines Aged Out No long er eligible based on patient's age to complete this topic Procedures Procedure Name Priority Date/Time Associated Diagnosis Comments [place] CYSTOGRAM 3+ VIEWS Routine 01/14/2025 3:20 PM EDT Prostate cancer (HCC) Hx of radical prostatectomy PHOSPHORUS Routine 01/08/2025 6:51 AM EDT MAGNESIUM Routine 01/08/2025 6:51 AM EDT BASIC METABOLIC PANEL Routine 01/08/2025 6:51 AM EDT COMPLETE BLOOD COUNT, WITH DIFFERENTIAL Routine 01/08/2025 6:51 AM EDT POCT GLUCOSE, FINGERSTICK (CHARGE) Routine 01/06/2025 8:36 PM EDT URINALYSIS WITH REFLEX TO MICROSCOPIC STAT 01/06/2025 9:04 AM EDT MAGNESIUM STAT 01/06/2025 7:35 AM EDT BASIC METABOLIC PANEL STAT 01/06/2025 7:35 AM EDT COMPLETE BLOOD COUNT, WITH DIFFERENTIAL STAT 01/06/2025 7:35 AM EDT COMPREHENSIVE METABOLIC PANEL STAT 01/05/2025 9:22 PM EDT COMPLETE BLOOD COUNT, WITH DIFFERENTIAL STAT 01/05/2025 9:22 PM EDT BASIC METABOLIC PANEL Routine 01/04/2025 8:28 AM EDT CREATININE, BODY FLUID Routine 01/04/2025 3:44 AM EDT PATHOLOGY REPORT Routine 01/03/2025 2:24 PM EDT ANES INTUBATION Routine 01/03/2025 1:43 PM EDT MD LAPS SURG [id number] RPBIC RAD W/NRV SPARING ROBOT 01/03/2025 12:59 PM EDT Malignant neoplasm of prostate (HCC) [facility] CPT CODE 56138, 31794, [id number] ECG 12-LEAD Routine 12/25/2024 8:40 AM EDT [...] PM EDT HX OUTSIDE ORDER Routine 11/25/2024 12:03 AM EDT PATHOLOGY REPORT Routine 11/22/2024 12:00 AM EDT PET/CT GA68 PSMA SKULL BASE TO MID-THIGH - INITIAL TREATMENT Routine 11/20/2024 3:54 PM EDT Prostate cancer (HCC) from Last 3 Months Results * [place] Cystogram 3+ views (01/14/2025 [...] This critical result was discussed with JUWAN CHAU MD by direct secure messaging via [facility] at 01/14/2025 3:19 PM EST and it was ascertained that the content and urgency of the report was understood at the time of direct communication. Interpreted by: Jerrod Philip MD Plater Helper I personally reviewed the images and the resident's preliminary report and AGREE with the report as it is now presented (RADPAL1). Narrative 01/14/2025 5:17 PM EDT EXAMINATION: [place] Cystogram CLINICAL INFORMATION: s/p RALP on 01/03. Evaluate for urine leak. Catheter in place COMPARISON: None. TECHNIQUE: Initial dish washer image was obtained. 400 mL of Cysto-Conray was administered through the Hernandez catheter under fluoroscopic guidance. Additional spot images were taken in the AP, oblique, and lateral positions. FLUOROSCOPY TIME: 3.8 minutes of fluoroscopic time was utilized. DOSE AREA PRODUCT: 274.346 dGy-cm2 FINDINGS: Motor Vehicle Examiner image: Hernandez catheter in place. Surgical clips [...] Catheter in place COMPARISON: None. TECHNIQUE: Initial dish washer image was obtained. 400 mL of Cysto-Conray was administered through the Hernandez catheter under fluoroscopic guidance. Additional spot images were taken in the AP, oblique, and lateral positions. FLUOROSCOPY TIME: 3.8 minutes of fluoroscopic time was utilized. DOSE AREA PRODUCT: 274.346 dGy-cm2 FINDINGS: Motor Vehicle Examiner image: Hernandez catheter in place. Surgical clips [...] This critical result was discussed with JUWAN CHAU MD by direct secure messaging via [facility] at 01/14/2025 3:19 PM EST and it was ascertained that the content and urgency of the report was understood at the time of direct communication. Interpreted by: Jerrod Philip MD Plater Helper I personally reviewed the images and the resident's preliminary report and AGREE with the report as it is now presented (RADPAL1). us Juwan Chau MD IMG FLUOROSCOPY ORDERABL ES Final Result * (ABNORMAL) Complete Blood Count, with Differential (01/08/2025 6:51 AM EDT) Only the most recent of4 resultswithin the time period is included. White Blood Cell Count 8.1 4.0 - 11.0 Thou/uL 01/08/2025 8:17 AM [facility] Platelet Count 274 150 - 450 Thou/uL 01/08/2025 8:17 AM [facility] Hemoglobin 10.3(L) 13.0 - 17.7 g/dL 01/08/2025 8:17 AM [facility] Hematocrit 32.3(L) 39.0 - 54.0 % 01/08/2025 8:17 AM [facility] Red Blood Cell Count 3.49(L) 4.50 - 6.20 Mil/uL 01/08/2025 8:17 AM [facility] MCV 93 80 - 100 fL 01/08/2025 8:17 AM [facility] MCH 29.5 27.0 - 31.0 pg 01/08/2025 8:17 AM [facility] MCHC 31.9 30.0 - 36.0 g/dL 01/08/2025 8:17 AM [facility] RDW 12.4 11.5 - 14.5 % 01/08/2025 8:17 AM [facility] MPV 10.6 7.5 - 12.5 fL 01/08/2025 8:17 AM [facility] Neutrophils Auto 54.5 % 01/09/20 8:17 AM [facility] Immature Granulocytes 0.5 % 01/08/2025 8:17 AM [facility] Lymphocytes Auto 32.4 % 01/09/20 8:17 AM [facility] Monocytes Auto 9.9 % 01/08/2025 8:17 AM [facility] Eosinophils Auto 2.0 % 01/09/20 8:17 AM [facility] Basophils Auto 0.7 % 01/08/2025 8:17 AM [facility] Abs Neutrophils Auto 4.39 2.00 - 7.50 Thou/uL 01/08/2025 8:17 AM [facility] Abs Immature Granulocytes 0.04 0.00 - 0.10 Thou/uL [facility] Lymphocytes Auto 2.61 1.50 - 4.50 Thou/uL 01/08/2025 8:17 AM [facility] Abs Monocytes Auto 0.80 0.20 - 1.50 Thou/uL 01/08/2025 8:17 AM [facility] Abs Eosinophils Auto 0.16 0.00 - 0.70 Thou/uL 01/08/2025 8:17 AM [facility] Abs Basophils Auto 0.06 0.00 - 0.20 Thou/uL 01/08/2025 8:17 AM [facility] Blood Blood specimen / Unknown 01/08/2025 6:51 AM EDT 01/08/2025 8:05 AM EDT us Jelly Wallace PA-C LAB BLOOD ORDERABLES Marga wiseman Result [address] [address], [address] [address] * Phosphorus (01/08/2025 6:51 AM EDT) Phosphorus 2.7 2.7 - 4.5 mg/dL 01/08/2025 8:37 AM EDT [facility] Blood Blood specimen / Unknown 01/08/2025 6:51 AM EDT 01/08/2025 8:05 AM EDT Jelly SORIANO-Jen LAB BLOOD ORDERABLES Marga l Result [address] [address], [address] [address] * Magnesium (01/08/2025 6:51 AM EDT) Only the most recent of2 resultswithin the time period is included. Magnesium 1.8 1.6 - 2.7 mg/dL 01/08/2025 8:37 AM EDT [facility] Blood Blood specimen / Unknown 01/08/2025 6:51 AM EDT 01/08/2025 8:05 AM EDT Jelly Wallace PA-C LAB BLOOD ORDERABLES Marga l Result Performing Organization Address City/[facility] Co de Phone Number [address] [address], [address] [address] * Basic Metabolic Panel (01/08/2025 6:51 AM EDT) Only the most recent of4 resultswithin the time period is included. Glucose 95 65 - 99 mg/dL 01/08/2025 8:37 AM EDT [facility] Comment:Fasting: <100 mg/dL, Non-Fasting: <200 mg/dL (ADA 2005) Blood Urea Nitrogen (BUN) 14 8 - 21 mg/dL 01/08/2025 8:37 AM EDT [facility] Creatinine 0.78 0.50 - 1.30 mg/dL 01/08/2025 8:37 AM EDT [facility] eGFR >90 >59 01/08/2025 8:37 AM EDT [facility] Comment:CKD-EPI (2020) in mL /min/1.73 sq meters. Sodium 140 136 - 145 mmol/L 01/08/2025 8:37 AM EDT [facility] Potassium 3.7 3.4 - 5.3 mmol/L 01/08/2025 8:37 AM [facility] Chloride 100 98 - 107 mmol/L 01/08/2025 8:37 AM EDT [facility] CO2 28 22 - 33 mmol/L 01/08/2025 8:37 AM T [facility] Anion Gap 12 7 - 17 01/08/2025 8:37 AM [facility] Calcium 8.8 8.7 - 10.5 mg/dL 01/08/2025 8:37 AM [facility] BUN/Creatinine Ratio 18 10.0 - 25.0 Ratio 01/08/2025 8:37 AM [facility] Blood Blood specimen / Unknown 01/08/2025 6:51 AM EDT 01/08/2025 8:05 AM EDT Jelly Wallace PA-C LAB BLOOD [place] [address], [place] [address] * (ABNORMAL) POCT Glucose, Fingerstick (01/06/2025 8:36 PM EDT) POC Glucose 175(H) 65 - 99 mg/dL 01/06/2025 8:40 PM EDT Blood specimen / Unknown 01/06/2025 8:36 PM EDT 01/06/2025 8:40 PM EDT Bora Trivedi MD POINT OF CARE TEST ORDERABLES Fi nal Result HOSPITAL LAB See Below * (ABNORMAL) Urinalysis with Reflex to Microscopic (01/06/2025 9:04 AM EDT) Color Yellow 01/06/2025 9:44 AM EDT Clarity Cloudy 01/06/2025 9:44 AM EDT Specific [place] >1.029 1.005 - 1.030 01/06/2025 9:44 AM EDT pH 5.5 5.0 - 8.0 01/06/2025 9:44 AM EDT Leukocyte Esterase Trace(A) Negative 01/06/2025 9:44 AM EDT Nitrite Negative Negative 01/06/2025 9:44 AM EDT Protein 300(A) NEG^Negative mg/dL 01/06/2025 9:44 AM EDT Glucose Negative Negative mg/dL 01/06/2025 9:44 AM EDT Ketones 80(A) NEG^Negative mg/dL 01/06/2025 9:44 AM EDT Blood Large(A) Negative 01/06/2025 9:44 AM EDT Bilirubin Negative Negative 01/06/2025 9:44 AM EDT RBC >25(H) 0 - 4 per hpf 01/06/2025 9:44 AM EDT WBC >25(H) 0 - 4 per hpf 01/06/2025 9:44 AM EDT Epithelial Cells 0 per hpf 01/06/2025 9:44 AM EDT Casts 1 0 - 4 per lpf 01/06/2025 9:44 AM EDT Comment:Casts are hyaline un less otherwise noted. Hyaline Casts Present per lpf 01/06/2025 9:44 AM EDT Urine Voided urine specimen / Unknown 01/06/2025 9:04 AM EDT 01/06/2025 9:24 AM EDT us Konstantin Doty MD URINE ORDERABLES Final Result HOSPITAL LAB See Below * (ABNORMAL) Comprehensive Metabolic Panel (01/05/2025 9:22 PM EDT) Glucose 145(H) 65 - 99 mg/dL 01/05/2025 9:52 PM EDT [facility] Comment:Fasting: <100 mg/dL, Non-Fasting: <200 mg/dL (ADA 2005) Blood Urea Nitrogen (BUN) 11 8 - 21 mg/dL 01/05/2025 9:52 PM [facility] Creatinine 1.1 0.5 - 1.3 mg/dL 01/05/2025 9:52 PM [facility] eGFR 71 >59 01/05/2025 9:52 PM [facility] Comment:CKD-EPI (2020) in mL /min/1.73 sq meters. Sodium 137 136 - 145 mmol/L 01/05/2025 9:52 PM [facility] Potassium 4.5 3.4 - 5.3 mmol/L 01/05/2025 9:52 PM [facility] Chloride 101 98 - 107 mmol/L 01/05/2025 9:52 PM [facility] CO2 24 22 - 33 mmol/L 01/05/2025 9:52 PM [facility] Calcium 8.9 8.7 - 10.5 mg/dL 01/05/2025 9:52 PM [facility] Alkaline Phosphatase 54 45 - 128 U/L 01/05/2025 9:52 PM [facility] Aspartate Aminotrans (AST) 23 10 - 55 U/L 01/05/2025 9:52 PM [facility] Alanine Aminotrans (ALT) 19 10 - 55 U/L 01/05/2025 9:52 PM [facility] Bilirubin, Total 0.5 0.2 - 1.0 mg/dL 01/05/2025 9:52 PM [facility] Protein, Total 7.4 6.3 - 8.3 g/dL 01/05/2025 9:52 PM [facility] Albumin 4.0 3.4 - 4.8 g/dL 01/05/2025 9:52 PM [facility] BUN/Creatinine Ratio 10 10.0 - 25.0 Ratio 01/05/2025 9:52 PM [facility] Globulin 3.4 1.5 - 3.9 g/dL 01/05/2025 9:52 PM [facility] Albumin/Globulin Ratio 1.2 1.0 - 3.0 Ratio 01/05/2025 9:52 PM [facility] Anion Gap 12 7 - 17 01/05/2025 9:52 PM [facility] Blood Blood specimen / Unknown 01/05/2025 9:22 PM EDT 01/05/2025 9:28 PM EDT Mary Carlton PA-C LAB BLOOD ORDERABLES Marga wiseman Result Performing Organization Address [facility] de Phone Number [address] [address], [address] [address] * Creatinine, Body Fluid: ESTRELLITA drain LEFT Post Op day #1 (01/04/2025 3:44 AM EDT) Creatinine, Body Fluid 1.6 mg/dL 01/04/2025 4:16 AM EDT [facility] Comment:The reference interv al(s) and other method performance specifications are unavailable for this body fluid. Comparison of this result with the concentration in the blood, serum, or plasma is recommended. FLUID SOURCE Abdominal Cavity 01/04/2025 3:21 AM EDT [facility] Comment:Fluid, Peritoneal Fluid, Peritoneal (Abdominal Cavity) 01/04/2025 3:44 AM EDT 01/04/2025 3:51 AM EDT Juwan Chau MD BODY FLUIDS AND STOOLS O RDERABLES Final Result Performing Organization Address [facility] Co de Phone Number [address] [address], [address] [address] * Pathology (01/03/2025 2:24 PM EDT) Only the most recent of2 resultswithin the time period is included. Report CT [id number] CLIA ID [id number] [address] [place] [id number] [phone] Surgical Pathology Report PATIENT NAME: LUCIANO STANLEY [facility] REC NUMBER: [id number] (AGE): 1950 (Age: 74) SPECIMEN NUMBER: [id number] DATE OBTAINED: 01/03/2025 DIAGNOSIS A-LEFT ILIAC LYMPH NODE, DISSECTION: FOUR LYMPH NODES NEGATIVE FOR CARCINOMA (0/4). B-LEFT OBTURATOR LYMPH NODE, DISSECTION: FOUR LYMPH NODES NEGATIVE FOR CARCINOMA (0/4). C-RIGHT ILIAC LYMPH NODE, DISSECTION: NO LYMPH NODES GROSSLY OR MICROSCOPICALLY IDENTIFIED, ENTIRE SPECIMEN SUBMITTED FOR HISTOLOGIC EVALUATION. D-RIGHT OBTURATOR LYMPH NODE, DISSECTION: FOUR LYMPH NODES NEGATIVE FOR CARCINOMA (0/4). E-PERIPROSTATIC FAT: FIBROADIPOSE TISSUE; NEGATIVE FOR MALIGNANCY. F-PROSTATE, PROSTATECTOMY: PROSTATIC ADENOCARCINOMA. SEE SYNOPTIC REPORT. Synoptic Report: Specimen Procedure: Radical prostatectomy Prostate Size Prostate Weight (Grams): 56 g Tumor Histologic Type: Acinar adenocarcinoma, conventional (usual) Histologic Grade Histologic Grade Wadley Pattern: Wadley Pattern Primary Declan Pattern: Pattern 3: 80 % Secondary Declan Pattern: Pattern 4: 20 % Grade: Grade group 2 (Declan Score 3 + 4 = 7) Intraductal Carcinoma (IDC): Not identified Cribriform Glands: Not identified Treatment Effect: No known presurgical therapy Tumor Quantitation Estimated Percentage of Prostate Involved by Tumor: 1 - 5% Extraprostatic Extension (EPE): Not identified Urinary Bladder Neck Invasion: Not identified Seminal Vesicle Invasion: Not identified Lymphatic and / or Vascular Invasion: Not identified Perineural Invasion: Present Margins Margin Status: All margins negative for invasive carcinoma Regional Lymph Nodes Regional Lymph Node Status: All regional lymph nodes negative for tumor Number of Lymph Nodes Examined: 12 pTNM Classification (AJCC 8th Edition) pT Category: pT2 pN Category: pN0 Best Tumor Blocks for Future Studies Tumor Block(s): F44 Normal Block(s): F1 CAP eCP Release Date: 01/11/2023 (4.3.0.0) Accreditation Date: /04/2023 (mTuitive 2023 Q2) 01/10/2025 Electronically Signed Out OSBALDO WOODS MD COMMENT [id number], 12153 x 3, 30277 x 2 Clinical Information and History: Malignant neoplasm of prostate cT 1C cN 0 cM 0 Clinical Stage 2C Tissue(s) Submitted: A: LEFT ILIAC LYMPH NODES TRT 1424 TIF 1426 B: LEFT OBTURATOR LYMPH NODES TRT 1441 TIF 1445 C: RIGHT ILIAC LYMPH NODES TRT 1450 TIF 1457 D: RIGHT OBTURATOR LYMPH NODES TRT 1457 TIF 1500 E: PERIPROSTATIC FAT TRT 1524 TIF 1527 F: PROSTATE TRT 1720 TIF 1751 Gross Description: Specimen A is received in formalin labeled per the requisition as left iliac lymph nodes and consists of 2 unoriented portions of lobulated aragon-yellow fatty soft tissue measuring 5.4 x 2.5 x 1.0 cm and 3.8 x 1.3 x 0.6 cm. A lymph node search performed to reveal 4 rubbery aragon-white possible lymph nodes ranging from 0.3 x 0.3 x 0.2 cm to 1.2 x 0.8 x 0.6 cm. The 2 larger lymph nodes are serially section displaying rubbery aragon-white cut surfaces. The specimen is entirely submitted as follows: A1: 2 intact lymph nodes A2: 1 bisected lymph node A3: 1 lymph node serially sectioned A4-A6: Remainder of fatty soft tissue Specimen B is received in formalin labeled per the requisition as left obturator lymph nodes and consists of 2 unoriented portions of lobulated aragon-yellow fatty soft tissue measuring 6.4 x 2.2 x 1.7 cm and 2.9 x 2.3 x 1.3 cm. A lymph node search is performed to reveal 5 rubbery aragon-yellow possible lymph nodes ranging from 0.4 x 0.2 x 0.2 cm to 2.4 x 1.8 x 0.8 cm. The larger lymph nodes are serially sectioned displaying rubbery aragon-yellow to aragon-brown cut surfaces. The specimen is entirely submitted as follows: B1: 1 bisected lymph node, and 1 intact lymph node (differentiated based off size) B2-B3: 1 lymph node serially sectioned B4-B5: 1 lymph node serially sectioned B6-B9: 1 lymph node serially sectioned B10-B11: Remainder of fatty soft tissue Specimen C is received in formalin labeled per the requisition as right iliac lymph nodes and consists of a 2.6 x 1.7 x 0.6 cm unoriented portion of lobulated aragon-yellow fatty soft tissue. A lymph node search is performed, and no definitive lymph nodes are grossly identified. The specimen is entirely submitted in C1-C2. Specimen D is received in formalin labeled per the requisition as right obturator lymph nodes and consists of a 6.0 x 2.7 x 2.0 cm unoriented portion of lobulated aragon-yellow fatty soft tissue. A lymph node search is performed to reveal 4 rubbery aragon-brown possible lymph nodes ranging in size from 0.8 x 0.7 x 0.3 cm to 2.4 x 2.0 x 1.2 cm. The lymph nodes are serially sectioned displaying pale aragon-white to aragon-brown cut surfaces. The specimen is entirely submitted as follows: D1: 1 lymph node bisected D2-D3: 1 lymph node serially sectioned D4-D5: 1 lymph node serially sectioned D6-D9: 1 lymph node serially sectioned D10-D13: Remainder of fatty soft tissue Specimen E is received in formalin labeled per the requisition as periprostatic fat and consists of a 3.8 x 2.8 x 1.0 cm fragmented aggregate of lobulated aragon-yellow fatty soft tissue. A lymph node search is performed, and no definitive lymph nodes are grossly identified. The specimen is entirely submitted in E1-E3. Specimen F is received in formalin labeled per the requisition prostate and consists of a 56 gm radical prostatectomy measuring 3.9 cm (apex to base) x 4.6 cm (left to right) x 4.0 cm (anterior to posterior). The attached left vas deferens measures 3.6 cm in length x 0.5 cm in diameter and the left seminal vesicle measures 2.6 x 1.4 x 0.6 cm. The attached right vas deferens measures 4.5 cm in length x 0.5 cm in diameter and right seminal vesicle measures 3.4 x 1.3 x 0.8 cm. The capsular surface of the prostate is intact shaggy aragon-brown with a scant amount of attached lobulated aragon-yellow fatty soft tissue. The prostate is inked as follows: Left half-orange, right half-blue. The apical margin and bladder neck margins are coned and radially sectioned. The remaining prostate is serially sectioned from apex to base into 11 slices (apex slice 1). The cut surfaces are rubbery pink-aragon and multinodular. No discrete lesions can be grossly identified. The seminal vesicles display aragon loculated cut surfaces and the vasa deferentia display pinpoint lumina. A gross photograph is taken. Representatives of the adnexa are submitted, and the prostate is entirely submitted as follows: F1: Vasa deferentia margins en face (left-orange, right-blue) F2-F5: Apical margin radially sectioned (F2-F3 left, F4-F5 right) F6-F10: Bladder base margin radially sectioned (F6-F8 left, F9-F10 right) F11: Slice 1 F12-F19: Slices 2-9, left posterior aspect sequentially submitted F20-F27: Slices 2-9, right posterior aspect sequentially submitted F28-F29: Slices 2-3, anterior aspect sequentially submitted (F29 bisected) F30-F31: Slice 4, anterior aspect bisected (F30 left, F31 right) F32-F33: Slice 5, anterior aspect bisected (F32 left, F33 right) F34-F37: Slices 6-9, anterior aspect sequentially submitted (F34, F35, and F36 bisected) F38-F39: Slice 10 bisected F40-F43: Slice 11 perpendicularly sectioned (F40-F41 left, F42-F43 right) F44: Left prostate to adnexa junction, entirely submitted F45: Right prostate to adnexa junction, entirely submitted [facility] Lymph Node(s) (Pelvic Cavity) 01/03/2025 2:24 PM EDT Lymph Node(s) (Pelvic Cavity) 01/03/2025 2:41 PM EDT Lymph Node(s) (Pelvic Cavity) 01/03/2025 2:50 PM EDT Lymph Node(s) (Pelvic Cavity) 01/03/2025 2:57 PM EDT Tissue (Pelvic Cavity) 01/03/2025 3:24 PM EDT Tissue Specimen from prostate / Unknown 01/03/2025 5:20 PM EDT Juwan Chau MD PATHOLOGY/CYTOLOGY ORDER STUART Final Result HOSPITAL LAB See Below * ANES INTUBATION (01/03/2025 1:43 PM EDT) Tracey Jade CRNA - 01/03/2025 1:43 PM EDT Tracey Porras CRNA 01/03/2025 1:44 PM Anesthesia Procedure Note - Elective intubation Patient Name: Lanre Stanley : 1950 Patient location: OR Procedure indications: airway protection Procedure diagnosis: Anesthesia Procedure Start Time: 01/03/2025 1:39 PM Procedure End Time: 01/03/2025 1:39 PM Performed by: Resident/EMERGENCY NURSE DO Tracey Moe CRNA Chart Verification Airway: [...] baseline Complications: no complications Froilan Dueñas DO MD ANESTHESIA Final Result * ECG 12 lead [...] 5.6 <5.7 % 12/18/2024 10:06 PM EDT [facility] Comment: A1c% Interpretation 5.7 - 6.0 Increase risk of diabetes 6.1 - 6.4 Higher risk of diabetes > or = 6.5 Consistent with diabetes Diabetes Care, 33(Supp 1):S1-S61, 2009 Estimated Average Glucose 114 mg/dL 12/18/2024 10:06 PM EDT [facility] Blood specimen / Unknown 12/18/2024 2:39 PM EDT 12/18/2024 8:44 PM EDT Natalia Swanson INTERACTIVE MEDIA DIRECTOR LAB BLOOD ORDERABLES Final Res ult Performing Organization Address [facility] Co de Phone Number [address] [address], [address] [address] * Type and Screen (12/18/2024 2:39 PM EDT) ABO/Rh A NEGATIVE 12/18/2024 11:21 PM EDT [facility] Antibody Screen NEGATIVE 12/18/2024 11:21 PM EDT [facility] Specimen Expiration 12/21/2024 12/18/2024 11:21 PM EDT [facility] Blood Bank Comment Second Sample needed for Blood Transfusion 12/18/2024 11:21 PM EDT [facility] Blood Blood specimen / Unknown 12/18/2024 2:39 PM EDT 12/18/2024 9:29 PM EDT Santhosh Madden MD BLOOD BANK TEST ORDERABLES Fi nal Result Performing Organization Address [facility] Co de Phone Number [address] [address], [address] [address] * PET/CT Ga68 PSMA Skull to Mid [...] following intravenous administration of 5.5 millicuries of [id number] via a right antecubital fossa vein, a [...] minutes following intravenous administrationof 5.5 millicuries of [id number] via a right antecubital fossa vein, aCT [...] prostate neoplasm. Signed by: Mike Rojo M.D. us Juwan Chau MD IMG PET ORDERABLES Final Result from Last 3 Months Insurance [facility] [facility] MEDICARE MEDICARE PART A & B [employer] [facility] MEDICARE Advance Directives * Full Code (Latest Code Status on File) Date Activated Date Inactivated Comments 01/06/2025 1:23 AM * Full Code Date Activated Date Inactivated Comments 01/03/2025 5:37 PM 01/09/2025 8:22 AM * Full Code Date Activated Date Inactivated Comments 01/03/2025 9:19 AM 01/03/2025 5:37 PM Care Teams Commercial Engineer Relationship Specialty Start Date End Date Jarad Joseph MD [address] [place] [address] PCP - General Family Medicine 01/05/25 Jarad Joseph MD [address] [place] [address] Family Medicine 01/05/25
== END 2025-01-20 17:11 | disposition home or self-care (01) ==
LOC: HO.HMCC 15:51
PROVIDERS: PCP Nurse Practitioner Family; Visit Provider Nurse Practitioner Family
DX: C61 Malignant neoplasm of prostate (principal); Z90.79 Acquired absence of other genital organ(s)

== ENCOUNTER → 2025-01-20 15:50 | Outpatient (BNVA) | payer MEDICARE, SELFPAY | PROVIDERS: PCP Nurse Practitioner Family; Visit Provider Nurse Practitioner Family | DX: Z48.3 Aftercare following surgery for neoplasm (principal); Z85.46 Personal history of malignant neoplasm of prostate; Z96.0 Presence of urogenital implants; Z90.79 Acquired absence of other genital organ(s) | CPT/HCPCS: 96127; 99212 ==

== ENCOUNTER 2025-03-10 11:59 | Outpatient (REF) | payer MEDICARE, SELFPAY ==
[2025-03-10 16:14] LABS: MANUAL DIFF FLAG NO
[2025-03-10 16:17] LABS: Hematocrit 40.5 % (42.0-52.0); Hemoglobin 12.8 g/dl (14.0-18.0); Imm Gran Abs Auto 0.03 X10*3/uL (0.00-0.03); Imm Gran Pct Auto 0.4 % (0.0-0.4); Lymphocytes Absolute Auto 2.4 X10*3/uL (1.2-4.9); Mean Corpuscular HGB Conc 31.6 g/dl (31.0-36.0); Mean Corpuscular Hemoglobin 28.1 pg (27.0-33.0); Mean Corpuscular Volume 89.0 fL (80.0-98.0); NRBC Abs Auto 0.000 X10*3/uL (0.0-0.012); NRBC Pct Auto 0.0 /100WBC (0.0-0.2); Platelet Count 236 X10*3/uL (160-400); Red Blood Count 4.55 X10*6/uL (4.60-5.80); White Blood Count 7.8 X10*3/uL (4.8-10.8)
[2025-03-10 16:37] LABS: Alanine Aminotransferase 25 U/L (0-40); Albumin Level 4.6 g/dL (3.5-5.0); Alkaline Phosphatase 58 U/L (39-117); Anion Gap 11 (12-20); Aspartate Amino Transferase 30 U/L (5-37); Blood Urea Nitrogen 16 mg/dL (9-16); Calcium 9.2 mg/dL (8.4-10.2); Carbon Dioxide 29 mmol/L (22-29); Chloride 103 mmol/L (96-108); Cholesterol 181 mg/dL (<200); Estimated Glomerular Filt Rate > 60; HDL Cholesterol 56 mg/dL (>40); Potassium 4.4 mmol/L (3.3-5.1); Sodium 139 mmol/L (135-145); Total Protein 7.9 g/dL (6.5-8.0); Triglycerides 146 mg/dL (<150)
== END 2025-03-10 12:00 | disposition home or self-care (01) ==
LOC: HO.HMGCLDS 11:59
PROVIDERS: PCP Nurse Practitioner Family; Visit Provider Nurse Practitioner Family
DX: K59.00 Constipation, unspecified (principal); R35.0 Frequency of micturition; C61 Malignant neoplasm of prostate; Z90.79 Acquired absence of other genital organ(s); Z79.899 Other long term (current) drug therapy
CPT/HCPCS: 36415; 80053; 80061; 81003; 84443; 85025; 99212

== ENCOUNTER 2025-03-10 11:59 | Outpatient (AMB) | payer MEDICARE, SELFPAY ==
[2025-03-10 12:37] VITALS: BP 100/60; PULSE 68; TEMP 36.5; O2SAT 98
--- NOTE | 2025-03-10 12:37 | MHC.OFFWIV ---
Intake Vital Signs 03/10/25 12:37 Height 5 ft 7 in BP 100/60 Blood Pressure Location Lt brachial Position Sitting Pulse 68 Pulse Source Pulse Oximeter Temp 97.7 F Temp Source Oral Pulse Oximetry (%) 98 Oxygen Delivery Method Room Air Intake Visit Reasons: EP Possible colitis Intake Note: pt is here for possible colitis Patient Tobacco Use Status: Former Tobacco user Allergies No Known Allergies Allergy (Verified 03/10/25 12:37) Do you need a note to return to daycare/school/sports/work: No HPI HPI Comments History of Present Illness Details History of Present Illness - The patient is a 74-year-old male presenting with concerns of burning sensation and irritation post-prostatectomy, constipation, and urinary incontinence. - Reports burning sensation and irritation around the surgical site following prostatectomy on January 03, exacerbated by coffee and sugar. - Constipation has been present for a few months, worsening post-surgery, managed with MiraLax and prune juice. - Urinary incontinence noted since prostatectomy, requiring protective garments. - History of prostate cancer treated with prostatectomy, surgery reported as successful. - Reports arthritic hip pain and recent facial and scalp rash. Physical Exam General: Cooperative, healthy appearing, comfortable, no acute distress and well developed Orientation: Patient oriented x3 Limitations: No limitations Neck: Normal visual inspection and Yes full ROM Respiratory: Normal respiratory effort and able to speak in complete sentences. Clear to auscultation bilaterally. No w/r/r noted. Cardiovascular: Regular rate and rhythm. Normal S1 and S2. No m/r/g noted. GI: Hypoactive BS noted. Distended abdomen, soft to palpation, nontender. No guarding or rebound tenderness noted. Negative CVA tenderness noted. Negative Olin. Negative Rovsing noted. Skin: No rashes or lesions noted Patient was informed and verbally consented to the use of an ambient scribe for clinic note documentation during this visit. [facility] Medical History Gastrointestinal discomfort Seborrheic keratoses Lumbago of lumbar region with sciatica Depression Mixed hyperlipidemia Surgical History History of inguinal hernia repair History of tonsillectomy Family History Mother Brain cancer Father No problems noted. Social History Housing: House Are you a primary doggy daycare activities director to a significant other at home: No Do you presently have visiting nurse or other home services: No Alcohol intake: current Alcohol intake frequency: a few times a week Patient Tobacco Use Status: Former Tobacco user e-Cigarette/Vaping Use: Never Used service: No Current occupational status: employed and retired Cognitive needs: No Hearing needs: No Vision needs: Yes Review of Systems Const All systems reviewed & are unremarkable except as noted in HPI and below Physical Exam Vital Signs: Last Vital Signs Temp 97.7 F 03/10/25 12:37 Pulse 68 03/10/25 12:37 BP 100/60 03/10/25 12:37 Pulse Ox 98 03/10/25 12:37 Oxygen Delivery Method Room Air 03/10/25 12:37 Results AMB Urinalysis, Automated UA Leukoctes 0 Mars/uL Last Edit by Manuel Delacruz CMA on 03/10/25 14:15 UA Nitrite Negative Last Edit by Manuel Delacruz CMA on 03/10/25 14:15 UA Urobilinogen 0.2 mg/dL Last Edit by Manuel Delacruz CMA on 03/10/25 14:15 UA Protein 0 mg/dL Last Edit by Manuel Delacruz CMA on 03/10/25 14:15 UA pH 6.0 Last Edit by Manuel Delacruz CMA on 03/10/25 14:15 UA Blood 0 Justice/uL Last Edit by Manuel Delacruz CMA on 03/10/25 14:15 UA Specific [place] 1.025 Last Edit by Manuel Delacruz CMA on 03/10/25 14:15 UA Ketone Negative Last Edit by Manuel Delacruz CMA on 03/10/25 14:15 UA Bilirubin 0 mg/dL Last Edit by Manuel Delacruz CMA on 03/10/25 14:15 UA Glucose 0 mg/dL Last Edit by Manuel Delacruz CMA on 03/10/25 14:15 Results Reviewed Results Reviewed: Laboratory Last Values Urine pH (Auto) 6.0 03/10/25 13:48 Specific [place] (Auto) 1.025 03/10/25 13:48 Urine Protein (Auto) 0 mg/dL 03/10/25 13:48 Glucose (UA)(Auto) 0 mg/dL 03/10/25 13:48 Urine Ketones (Auto) Negative 03/10/25 13:48 Urine Blood (Auto) 0 Justice/uL 03/10/25 13:48 Urine Nitrite (Auto) Negative 03/10/25 13:48 Urine Bilirubin (Auto) 0 mg/dL 03/10/25 13:48 Urine Urobilinogen (Auto) 0.2 mg/dL 03/10/25 13:48 Leukocyte Esterase (Auto) 0 Mars/uL 03/10/25 13:48 Assessment & Plan Assessment & Plan (1) Constipation: Code(s): K59.00 - Constipation, unspecified Qualifiers: Constipation type: unspecified constipation type Qualified Code(s): K59.00 - Constipation, unspecified (2) Lower abdominal pain: Code(s): R10.30 - Lower abdominal pain, unspecified Plan Differential diagnoses include UTI, constipation, diverticulitis, IBS, adhesions due to absence of diarrhea and bloody stools. UA is negative plan - Continue MiraLax and add a new stool softener with a laxative at bedtime. - Increase fiber in the diet - drink lots of fluids - pt is getting labs done for his PCP today - can f/u if his pain continues or worsens, diarrhea starts, fever, etc - advised ER if pain is worse Orders: Orders AMB Urinalysis Automated Today R35.0 - Frequency of micturition Medications: New sennosides-docusate sodium 8.6-50 mg (Colace 2-In-1) 1 tab-cap PO BEDTIME 30 tabs 0RF Refilled polyethylene glycol 3350 (Miralax) 17 grams PO DAILY 100 ea 0RF Coding Level of Care Code Est Pt Level 4 (42640) Diagnoses Constipation, unspecified constipation type K59.00 Constipation type: unspecified constipation type Lower abdominal pain R10.30
== END 2025-03-10 14:36 | disposition home or self-care (01) ==
PROVIDERS: PCP Nurse Practitioner Family; Visit Provider Physician Assistant Medical
DX: K59.00 Constipation, unspecified (principal); R10.30 Lower abdominal pain, unspecified; R35.0 Frequency of micturition